=== PATIENT | male | born 1960 | race Caucasian/White ===

== ENCOUNTER 2021-07-19 13:31 | Inpatient (IN) | payer BC ==
[2021-07-19] MEDS ORDERED: Ondansetron 4 MG/2 ML SDV IVPUSH ONE (14:10)
[2021-07-19] MEDS ORDERED: Sodium Chloride 0.9% 10 ML Syringe FLUSH PRN (14:10)
[2021-07-19] MEDS ORDERED: Sodium Chloride 0.9% 1,000 ML IV SCH (14:15)
--- NOTE | 2021-07-19 14:54 | CR ---
Chest: Frontal view of the chest was obtained. Comparison: No prior chest x-ray is available. Heart size and mediastinum are within normal limits. Sternotomy is noted. Central lung markings are increased. Difficult to exclude pulmonary vascular congestion. Lungs otherwise are clear. Bony structures show nothing acute. Impression: 1. Prior sternotomy. 2. Mild increased central lung markings. Uncertain, without old chest x-ray, if this is acute representing pulmonary vascular congestion or chronic. Diagnostic code #3
[2021-07-19] MEDS ORDERED: EPINEPHrine 1 MG/ML SDV IM PRN (16:11)
[2021-07-19] MEDS ORDERED: diphenhydrAMINE 50 MG/ML SDV IVPUSH PRN (16:11)
[2021-07-19] MEDS ORDERED: methylPREDNISolone Sodium Succinate 125 MG/2 ML SDV IVPUSH PRN (16:11)
[2021-07-19] MEDS ORDERED: Famotidine 20 MG/2 ML SDV IVPUSH PRN (16:11)
[2021-07-19] MEDS ORDERED: Sodium Chloride 0.9% 10 ML Syringe FLUSH SCH (16:15)
[2021-07-19] MEDS ORDERED: Dexamethasone 4 MG/ML SDV IVPUSH ONE (16:51)
[2021-07-19] MEDS ORDERED: REMDESIVIR 200 MG in Sodium Chloride 0.9% 250 ML IV ONE (16:54)
--- NOTE | 2021-07-19 17:08 | EDM.PDOC ---
ED HPI GENERAL MEDICAL PROBLEM - General Chief Complaint: Respiratory Problem Stated Complaint: COVID +/SENT FROM [facility] Time Seen by Provider: 07/19/21 13:46 Source of Information: Reports: Patient, Provider History Limitations: Reports: No Limitations - History of Present Illness INITIAL COMMENTS - FREE TEXT/NARRATIVE: The patient presents from [facility] for possible COVID 19. The patient's had COVID 19 over a week ago. He started having symptoms 10 days ago with cough, shortness of breath, generalized weakness, fever, chills, nausea, vomiting and some diarrhea. He has a history of [place] CABG and COPD. He is on oxygen at home if needed at night. His provider offered him Regeneron twice and he refused. He is feeling worse so he came to see her and she sent him here. He quit smoking years ago. Onset: Gradual Duration: Day(s): (10) Severity: Moderate Improves with: Reports: None Worsens with: Reports: None Associated Symptoms: Reports: Cough, Fever/Chills, Nausea/Vomiting, Shortness of Breath. Denies: Chest Pain, Headaches Throat Pain Score (Numeric/FACES): 10 Generalized Pain Score (Numeric/FACES): 7 - Related Data Allergies Allergy/AdvReac Type Severity Reaction Status Date / Time Penicillins Allergy Unknown Cannot Verified 07/19/21 16:39 Remember Home Meds: Home Meds Escitalopram [Lexapro] 10 mg PO DAILY 07/19/21 [History] Loratadine 10 mg PO DAILY PRN 07/19/21 [History] Pantoprazole [ProTONIX] 40 mg PO DAILY 07/19/21 [History] Potassium Chloride 10 meq PO DAILY 07/19/21 [History] Ubidecarenone [Co Q-10] 1 tab PO DAILY 07/19/21 [History] hydrOXYzine HCL [Atarax] 25 mg PO BEDTIME PRN 07/19/21 [History] lisinopriL [Lisinopril] 10 mg PO DAILY 07/19/21 [History] Past Medical History HEENT History: Reports: Impaired Vision Cardiovascular History: Reports: Bypass Other Cardiovascular History: triple bypass Respiratory History: Reports: COPD, Pneumonia, Recurrent Other Respiratory History: wears oxygen at [facility] Musculoskeletal History: Reports: Other (See Below) Other Musculoskeletal History: left knee surgery x 3 and left ankle fracture Neurological History: Reports: CVA Psychiatric History: Reports: Depression - Infectious Disease History Infectious Disease History: Reports: Chicken Pox, Measles, Mumps, Novel Coronavirus - Past Surgical History GI Surgical History: Reports: Appendectomy, Cholecystectomy Social & Family History - Tobacco Use Tobacco Use Status *Q: Former Tobacco User Used Tobacco, but Quit: Yes Month/Year Tobacco Last Used: 10 - Caffeine Use Caffeine Use: Reports: Coffee, Soda - Recreational Drug Use Recreational Drug Use: No ED ROS GENERAL - Review of Systems Review Of Systems: See Below Constitutional: Reports: Fever, Chills, Malaise, Weakness, Fatigue HEENT: Reports: No Symptoms Respiratory: Reports: Shortness of Breath, Cough Cardiovascular: Reports: No Symptoms Endocrine: Reports: Fatigue GI/Abdominal: Reports: No Symptoms : Reports: No Symptoms Musculoskeletal: Reports: No Symptoms ED EXAM, GENERAL - Physical Exam Exam: See Below Exam Limited By: No Limitations General Appearance: Alert, No Apparent Distress Ears: Normal External Exam Nose: Normal Inspection Throat/Mouth: Normal Inspection Head: Atraumatic, Normocephalic Neck: Normal Inspection Respiratory/Chest: No Respiratory Distress, Lungs Clear, Normal Breath Sounds Cardiovascular: Regular Rate, Rhythm, No Edema, No Murmur GI/Abdominal: Soft, Non-Tender, No Organomegaly, No Mass Extremities: Normal Inspection Course - Vital Signs Last Recorded V/S: Last Vital Signs Temp 98.3 F 07/19/21 13:50 Pulse 74 07/19/21 13:50 Resp 20 07/19/21 13:50 BP 137/77 07/19/21 13:50 Pulse Ox 94 L 07/19/21 14:20 - Orders/Labs/Meds Orders: Active Orders 24 hr Category Date Time Status Cardiac Monitoring [RC] . DIRECTED Care 07/19/21 14:10 Active Oxygen Therapy [RC] PRN Care 07/19/21 14:10 Active Peripheral IV Care [RC] . DIRECTED Care 07/19/21 14:10 Active Vital Signs [RC] Q15M Care 07/19/21 16:11 Active HEPATIC FUNCTION PANEL,HFP [CHEM] DAILY Lab 07/20/21 17:00 Ordered HEPATIC FUNCTION PANEL,HFP [CHEM] DAILY Lab 07/21/21 17:00 Ordered HEPATIC FUNCTION PANEL,HFP [CHEM] DAILY Lab 07/22/21 17:00 Ordered HEPATIC FUNCTION PANEL,HFP [CHEM] DAILY Lab 07/23/21 17:00 Ordered Sodium Chloride 0.9% [Normal Saline] 1,000 ml Med 07/19/21 14:15 Active IV .BOLUS Sodium Chloride 0.9% [Saline Flush] Med 07/19/21 14:10 Active 10 ml FLUSH ASDIRECTED PRN Sodium Chloride 0.9% [Saline Flush] Med 07/19/21 16:15 Active 30 ml FLUSH ASDIRECTED ED Antiemetic Medication Reflex [OM.PC] Stat Ot 07/19/21 14:10 Ordered Peripheral IV Insertion Adult [OM.PC] Stat Ot 07/19/21 14:10 Ordered Medication Orders Sodium Chloride (Normal Saline) 1,000 mls @ 1,000 mls/hr IV .BOLUS PAULINO Last Admin: 07/19/21 14:44 Dose: 1,000 mls/hr Documented by: MATLBIL Sodium Chloride (Sodium Chloride 0.9% 10 Ml Syringe) 10 ml FLUSH ASDIRECTED PRN PRN Reason: Keep Vein Open Last Admin: 07/19/21 14:53 Dose: 10 ml Documented by: MATLBIL Sodium Chloride (Sodium Chloride 0.9% 10 Ml Syringe) 30 ml FLUSH ASDIRECTED PAULINO Labs: Laboratory Tests 07/19/21 07/19/21 07/19/21 Range/Units 14:38 14:38 14:38 WBC 5.20 (4.23-9.07) K/mm3 RBC 4.28 L (4.63-6.08) M/mm3 Hgb 14.7 (13.7-17.5) gm/dl Hct 44.0 (40.1-51.0) % MCV 102.8 H (79.0-92.2) fl MCH 34.3 H (25.7-32.2) pg MCHC 33.4 (32.2-35.5) g/dl RDW Std Deviation 53.3 H (35.1-43.9) fL Plt Count 158 L (163-337) K/mm3 MPV 11.4 (9.4-12.3) fl Neut % (Auto) 80.0 H (34.0-67.9) % Lymph % (Auto) 10.8 L (21.8-53.1) % Bland % (Auto) 6.7 (5.3-12.2) % Eos % (Auto) 2.1 (0.8-7.0) Baso % (Auto) 0.2 (0.1-1.2) % Neut # (Auto) 4.16 (1.78-5.38) K/mm3 Lymph # (Auto) 0.56 L (1.32-3.57) K/mm3 Bland # (Auto) 0.35 (0.30-0.82) K/mm3 Eos # (Auto) 0.11 (0.04-0.54) K/mm3 Baso # (Auto) 0.01 (0.01-0.08) K/mm3 PT (9.7-12.0) SECONDS INR APTT (21.7-31.4) SECONDS D-Dimer, Quantitative (0.19-0.50) mg/L Sodium 142 (136-145) mEq/L Potassium 4.2 (3.5-5.1) mEq/L Chloride 106 (98-107) mEq/L Carbon Dioxide 27 (21-32) mEq/L Anion Gap 13.2 (5-15) BUN 25 H (7-18) mg/dL Creatinine 1.0 (0.7-1.3) mg/dL Est Cr Clr Drug Dosing 84.07 mL/min Estimated GFR (MDRD) > 60 (>60) mL/min BUN/Creatinine Ratio 25.0 H (14-18) Glucose 111 H (70-99) mg/dL Lactic Acid 1.7 (0.4-2.0) mmol/L Calcium 8.2 L (8.5-10.1) mg/dL Total Bilirubin 1.2 H (0.2-1.0) mg/dL AST 94 H (15-37) U/L ALT 46 (16-63) U/L Alkaline Phosphatase 234 H (46-116) U/L C-Reactive Protein 15.5 H* (<1.0) mg/dL Total Protein 6.2 L (6.4-8.2) g/dl Albumin 2.6 L (3.4-5.0) g/dl Globulin 3.6 gm/dL Albumin/Globulin Ratio 0.7 L (1-2) 07/19/21 Range/Units 15:04 WBC (4.23-9.07) K/mm3 RBC (4.63-6.08) M/mm3 Hgb (13.7-17.5) gm/dl Hct (40.1-51.0) % MCV (79.0-92.2) fl MCH (25.7-32.2) pg MCHC (32.2-35.5) g/dl RDW Std Deviation (35.1-43.9) fL Plt Count (163-337) K/mm3 MPV (9.4-12.3) fl Neut % (Auto) (34.0-67.9) % Lymph % (Auto) (21.8-53.1) % Bland % (Auto) (5.3-12.2) % Eos % (Auto) (0.8-7.0) Baso % (Auto) (0.1-1.2) % Neut # (Auto) (1.78-5.38) K/mm3 Lymph # (Auto) (1.32-3.57) K/mm3 Bland # (Auto) (0.30-0.82) K/mm3 Eos # (Auto) (0.04-0.54) K/mm3 Baso # (Auto) (0.01-0.08) K/mm3 PT 11.4 (9.7-12.0) SECONDS INR 1.03 APTT 39.8 H (21.7-31.4) SECONDS D-Dimer, Quantitative 1.03 H (0.19-0.50) mg/L Sodium (136-145) mEq/L Potassium (3.5-5.1) mEq/L Chloride (98-107) mEq/L Carbon Dioxide (21-32) mEq/L Anion Gap (5-15) BUN (7-18) mg/dL Creatinine (0.7-1.3) mg/dL Est Cr Clr Drug Dosing mL/min Estimated GFR (MDRD) (>60) mL/min BUN/Creatinine Ratio (14-18) Glucose (70-99) mg/dL Lactic Acid (0.4-2.0) mmol/L Calcium (8.5-10.1) mg/dL Total Bilirubin (0.2-1.0) mg/dL AST (15-37) U/L ALT (16-63) U/L Alkaline Phosphatase (46-116) U/L C-Reactive Protein (<1.0) mg/dL Total Protein (6.4-8.2) g/dl Albumin (3.4-5.0) g/dl Globulin gm/dL Albumin/Globulin Ratio (1-2) Meds: Medications Generic Name Dose Route Start Last Admin Trade Name Freq PRN Reason Stop Dose Admin Sodium Chloride 1,000 mls @ 1,000 mls/hr 07/19/21 14:15 07/19/21 14:44 Normal Saline IV 1,000 mls/hr .BOLUS PAULINO Administration Sodium Chloride 10 ml 07/19/21 14:10 07/19/21 14:53 Sodium Chloride 0.9% 10 Ml Syringe FLUSH 10 ml ASDIRECTED PRN Administration Keep Vein Open Sodium Chloride 30 ml 07/19/21 16:15 Sodium Chloride 0.9% 10 Ml Syringe FLUSH ASDIRECTED PAULINO Discontinued Medications Generic Name Dose Route Start Last Admin Trade Name Freq PRN Reason Stop Dose Admin Dexamethasone 6 mg 07/19/21 16:51 Dexamethasone 4 Mg/Ml Sdv IVPUSH 07/19/21 16:52 ONETIME ONE Diphenhydramine HCl 50 mg 07/19/21 16:11 Diphenhydramine 50 Mg/Ml Sdv IVPUSH ONETIME PRN hypersensitivity reaction Epinephrine HCl 0.3 mg 07/19/21 16:11 Epinephrine 1 Mg/Ml Sdv IM ONETIME PRN hypersensitivity reaction Famotidine 20 mg 07/19/21 16:11 Famotidine 20 Mg/2 Ml Sdv IVPUSH ONETIME PRN hypersensitivity reaction CASIRIVIMAB/IMDEVIMAB 10 ml/ 110 mls @ 220 mls/hr 07/19/21 16:11 Sodium Chloride IV 07/19/21 16:40 ONETIME ONE Remdesivir 200 mg/ Sodium 250 mls @ 250 mls/hr 07/19/21 16:54 Chloride IV 07/19/21 16:55 ONETIME ONE Methylprednisolone Sodium Succinate 125 mg 07/19/21 16:11 Methylprednisolone Sodium Succinate 125 Mg/2 Ml Sdv IVPUSH ONETIME PRN hypersensitivity reaction Ondansetron HCl 4 mg 07/19/21 14:10 07/19/21 14:44 Ondansetron 4 Mg/2 Ml Sdv IVPUSH 07/19/21 14:11 4 mg ONETIME ONE Administration - Re-Assessments/Exams Free Text/Narrative Re-Assessment/Exam: 07/19/21 17:12 I ordered oxygen, IV NS 1L bolus, zofran 4mg IV, labs, and duoneb. His CXR shows prior sternotomy. Mild increased central lung markings. Uncertain, without old chest x-ray if this acute representing pulmonary vascular congestion or chronic. His CBC looks good. His D-dimer is elevated at 1.03. His lactic acid is normal at 1.7. His alk phos is elevated at 234. His CRP is elevated at 15.5. I did order regeneron but I did not realize he has been needing 4L by [place] to keep his sats above 90%. When I saw him over 2 hours ago he was 92% on room air. I canceled the regeneron and put him on dexamethasone 6mg IV, and remdesivir 200mg IV. I feel he needs to be admitted. I called Dr Raman and he agreed to the admission. Departure - Departure Time of Disposition: 17:20 Disposition: Admitted As Inpatient 65 Condition: Fair Clinical Impression: COVID, Hypoxia - Discharge Information Referrals: Kianna Macario MD [Primary Care Provider] - Forms: ED Department Discharge Sepsis Event Note (ED) - Focused Exam Vital Signs: Vital Signs Temp Pulse Resp BP Pulse Ox Pulse Ox 07/19/21 14:20 94 L 07/19/21 13:50 98.3 F 74 20 137/77 90 L - My Orders Last 24 Hours: My Active Orders 07/19/21 14:10 Cardiac Monitoring [RC] . DIRECTED Oxygen Therapy [RC] PRN Peripheral IV Care [RC] . DIRECTED Sodium Chloride 0.9% [Saline Flush] 10 ml FLUSH ASDIRECTED PRN ED Antiemetic Medication Reflex [OM.PC] Stat Peripheral IV Insertion Adult [OM.PC] Stat 07/19/21 14:15 Sodium Chloride 0.9% [Normal Saline] 1,000 ml IV .BOLUS 07/19/21 16:11 Vital Signs [RC] Q15M 07/19/21 16:15 Sodium Chloride 0.9% [Saline Flush] 30 ml FLUSH ASDIRECTED 07/20/21 17:00 HEPATIC FUNCTION PANEL,HFP [CHEM] DAILY 07/21/21 17:00 HEPATIC FUNCTION PANEL,HFP [CHEM] DAILY 07/22/21 17:00 HEPATIC FUNCTION PANEL,HFP [CHEM] DAILY 07/23/21 17:00 HEPATIC FUNCTION PANEL,HFP [CHEM] DAILY - Assessment/Plan Last 24 Hours: My Active Orders 07/19/21 14:10 Cardiac Monitoring [RC] . DIRECTED Oxygen Therapy [RC] PRN Peripheral IV Care [RC] . DIRECTED Sodium Chloride 0.9% [Saline Flush] 10 ml FLUSH ASDIRECTED PRN ED Antiemetic Medication Reflex [OM.PC] Stat Peripheral IV Insertion Adult [OM.PC] Stat 07/19/21 14:15 Sodium Chloride 0.9% [Normal Saline] 1,000 ml IV .BOLUS 07/19/21 16:11 Vital Signs [RC] Q15M 07/19/21 16:15 Sodium Chloride 0.9% [Saline Flush] 30 ml FLUSH ASDIRECTED 07/20/21 17:00 HEPATIC FUNCTION PANEL,HFP [CHEM] DAILY 07/21/21 17:00 HEPATIC FUNCTION PANEL,HFP [CHEM] DAILY 07/22/21 17:00 HEPATIC FUNCTION PANEL,HFP [CHEM] DAILY 07/23/21 17:00 HEPATIC FUNCTION PANEL,HFP [CHEM] DAILY
[2021-07-19] MEDS ORDERED: hydrOXYzine HCl 25 MG Tab PO PRN (17:26)
[2021-07-19] MEDS ORDERED: Acetaminophen 325 MG Tab PO PRN (17:28)
[2021-07-19] MEDS ORDERED: oxyCODONE 5 MG Tab PO PRN (17:28)
[2021-07-19] MEDS ORDERED: Ondansetron 4 MG Tab.DIS PO PRN (17:28)
[2021-07-19] MEDS ORDERED: Temazepam 15 MG Cap PO PRN (17:28)
[2021-07-19] MEDS ORDERED: Docusate Sodium 100 MG Cap PO PRN (17:28)
[2021-07-19] MEDS ORDERED: Morphine 2 MG/ML SYRINGE IVPUSH PRN (17:28)
--- NOTE | 2021-07-19 17:30 | PCM.HP.2 ---
H&P History of Present Illness - General Date of Service: 07/19/21 Admit Problem/Dx: Admission Diagnosis/Problem Admission Diagnosis/Problem Pneumonia Source of Information: Patient History Limitations: Reports: No Limitations - History of Present Illness Initial Comments - Free Text/Narative: The patient is a 61-year-old gentleman who was sent to the emergency department from [facility] for positive COVID-19. The patient had been exposed to sick contact over a week ago who had COVID-19. The patient started having symptoms approximately 10 days ago consisting of cough, shortness of breath weakness fever with some nausea vomiting and diarrhea. The patient says that some of the symptoms have resolved but he is still been having weakness and chills and some diarrhea. Patient does have a history of COPD and myocardial infarction with bypass surgery. The patient had been offered Regeneron but had refused. The patient says that he quit smoking years ago. He has had no specific aggravating or relieving factors. The patient has been taking medication for hypertension and GERD as well as [id number] allergy medications. 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 Onset of Symptoms: Reports: Gradual Duration of Symptoms: Reports: Day(s):, Getting Worse Quality: Reports: Ache Severity: Mild Improves with: Reports: Rest Worsens with: Reports: Breathing, Movement Context: Reports: Sick Contact Associated Symptoms: Reports: cough w sputum, Fever/Chills, Headaches, Malaise, Nausea/Vomiting Throat Pain Score (Numeric/FACES): 10 Generalized Pain Score (Numeric/FACES): 7 - Related Data Allergies/Adverse Reactions: Allergies Allergy/AdvReac Type Severity Reaction Status Date / Time Penicillins Allergy Unknown Cannot Verified 07/19/21 16:39 Remember Home Medications: Home Meds Escitalopram [Lexapro] 10 mg PO DAILY 07/19/21 [History] Loratadine 10 mg PO DAILY PRN 07/19/21 [History] Pantoprazole [ProTONIX] 40 mg PO DAILY 07/19/21 [History] Potassium Chloride 10 meq PO DAILY 07/19/21 [History] Ubidecarenone [Co Q-10] 1 tab PO DAILY 07/19/21 [History] hydrOXYzine HCL [Atarax] 25 mg PO BEDTIME PRN 07/19/21 [History] lisinopriL [Lisinopril] 10 mg PO DAILY 07/19/21 [History] Past Medical History HEENT History: Reports: Impaired Vision Cardiovascular History: Reports: Bypass Other Cardiovascular History: triple bypass Respiratory History: Reports: COPD, Pneumonia, Recurrent Other Respiratory History: wears oxygen at noc Gastrointestinal History: Reports: GERD Genitourinary History: Reports: None Musculoskeletal History: Reports: Other (See Below) Other Musculoskeletal History: left knee surgery x 3 and left ankle fracture Neurological History: Reports: CVA Psychiatric History: Reports: Depression Endocrine/Metabolic History: Reports: None Hematologic History: Reports: None Immunologic History: Reports: None - Infectious Disease History Infectious Disease History: Reports: Chicken Pox, Measles, Mumps, Novel Coronavirus - Past Surgical History GI Surgical History: Reports: Appendectomy, Cholecystectomy Social & Family History - Tobacco Use Tobacco Use Status *Q: Former Tobacco User Used Tobacco, but Quit: Yes Month/Year Tobacco Last Used: 10 - Caffeine Use Caffeine Use: Reports: Coffee, Soda - Recreational Drug Use Recreational Drug Use: No - Living Situation & Occupation Living situation: Reports: , with Spouse Occupation: Other (Self-employed) H&P Review of Systems - Review of Systems: Review Of Systems: See Below General: Reports: Fever, Chills, Weakness HEENT: Reports: Headaches, Rhinitis, Sore Throat Pulmonary: Reports: Shortness of Breath, Wheezing, Cough Cardiovascular: Reports: No Symptoms Gastrointestinal: Reports: Diarrhea, Decreased Appetite, Nausea, Vomiting Genitourinary: Reports: No Symptoms Musculoskeletal: Reports: No Symptoms Skin: Reports: No Symptoms Psychiatric: Reports: No Symptoms Neurological: Reports: No Symptoms Hematologic/Lymphatic: Reports: No Symptoms Immunologic: Reports: No Symptoms Exam - Exam Exam: See Below - Vital Signs Vital Signs: Last Vital Signs Temp 36.8 C 07/19/21 13:50 Pulse 74 07/19/21 13:50 Resp 20 07/19/21 13:50 BP 137/77 07/19/21 13:50 Pulse Ox 94 L 07/19/21 14:20 Weight: 83.915 kg - Exam Quality Assessment: Supplemental Oxygen, DVT Prophylaxis General: Alert, Oriented, Cooperative HEENT: Conjunctiva Clear, EACs Clear, EOMI, Hearing Intact, PERRLA. No: Mucosa Moist & [place] (Dry, edentulous) Neck: Supple, Trachea Midline Lungs: Decreased Breath Sounds, Rales (Bibasilar) Cardiovascular: Regular Rate, Regular Rhythm GI/Abdominal Exam: Normal Bowel Sounds, Soft, Non-Tender, No Distention (Male) Exam: Deferred Rectal (Males) Exam: Deferred Back Exam: Normal Inspection, Full Range of Motion Extremities: Normal Inspection, No Pedal Edema Skin: Warm, Dry, Intact Neurological: Cranial Nerves Intact, Normal Gait, Normal Speech, Normal Tone Neuro Extensive - Mental Status: Alert, Oriented x3 Psychiatric: Alert, Normal Affect, Normal Mood - Patient Data Lab Results Last 24 hrs: Laboratory Results - last 24 hr 07/19/21 07/19/21 07/19/21 Range/Units 14:38 14:38 14:38 WBC 5.20 (4.23-9.07) K/mm3 RBC 4.28 L (4.63-6.08) M/mm3 Hgb 14.7 (13.7-17.5) gm/dl Hct 44.0 (40.1-51.0) % MCV 102.8 H (79.0-92.2) fl MCH 34.3 H (25.7-32.2) pg MCHC 33.4 (32.2-35.5) g/dl RDW Std Deviation 53.3 H (35.1-43.9) fL Plt Count 158 L (163-337) K/mm3 MPV 11.4 (9.4-12.3) fl Neut % (Auto) 80.0 H (34.0-67.9) % Lymph % (Auto) 10.8 L (21.8-53.1) % [place] % (Auto) 6.7 (5.3-12.2) % Eos % (Auto) 2.1 (0.8-7.0) Baso % (Auto) 0.2 (0.1-1.2) % Neut # (Auto) 4.16 (1.78-5.38) K/mm3 Lymph # (Auto) 0.56 L (1.32-3.57) K/mm3 [place] # (Auto) 0.35 (0.30-0.82) K/mm3 Eos # (Auto) 0.11 (0.04-0.54) K/mm3 Baso # (Auto) 0.01 (0.01-0.08) K/mm3 PT (9.7-12.0) SECONDS INR APTT (21.7-31.4) SECONDS D-Dimer, Quantitative (0.19-0.50) mg/L Sodium 142 (136-145) mEq/L Potassium 4.2 (3.5-5.1) mEq/L Chloride 106 (98-107) mEq/L Carbon Dioxide 27 (21-32) mEq/L Anion Gap 13.2 (5-15) BUN 25 H (7-18) mg/dL Creatinine 1.0 (0.7-1.3) mg/dL Est Cr Clr Drug Dosing 84.07 mL/min Estimated GFR (MDRD) > 60 (>60) mL/min BUN/Creatinine Ratio 25.0 H (14-18) Glucose 111 H (70-99) mg/dL Lactic Acid 1.7 (0.4-2.0) mmol/L Calcium 8.2 L (8.5-10.1) mg/dL Total Bilirubin 1.2 H (0.2-1.0) mg/dL AST 94 H (15-37) U/L ALT 46 (16-63) U/L Alkaline Phosphatase 234 H (46-116) U/L C-Reactive Protein 15.5 H* (<1.0) mg/dL Total Protein 6.2 L (6.4-8.2) g/dl Albumin 2.6 L (3.4-5.0) g/dl Globulin 3.6 gm/dL Albumin/Globulin Ratio 0.7 L (1-2) 07/19/21 Range/Units 15:04 WBC (4.23-9.07) K/mm3 RBC (4.63-6.08) M/mm3 Hgb (13.7-17.5) gm/dl Hct (40.1-51.0) % MCV (79.0-92.2) fl MCH (25.7-32.2) pg MCHC (32.2-35.5) g/dl RDW Std Deviation (35.1-43.9) fL Plt Count (163-337) K/mm3 MPV (9.4-12.3) fl Neut % (Auto) (34.0-67.9) % Lymph % (Auto) (21.8-53.1) % [place] % (Auto) (5.3-12.2) % Eos % (Auto) (0.8-7.0) Baso % (Auto) (0.1-1.2) % Neut # (Auto) (1.78-5.38) K/mm3 Lymph # (Auto) (1.32-3.57) K/mm3 [place] # (Auto) (0.30-0.82) K/mm3 Eos # (Auto) (0.04-0.54) K/mm3 Baso # (Auto) (0.01-0.08) K/mm3 PT 11.4 (9.7-12.0) SECONDS INR 1.03 APTT 39.8 H (21.7-31.4) SECONDS D-Dimer, Quantitative 1.03 H (0.19-0.50) mg/L Sodium (136-145) mEq/L Potassium (3.5-5.1) mEq/L Chloride (98-107) mEq/L Carbon Dioxide (21-32) mEq/L Anion Gap (5-15) BUN (7-18) mg/dL Creatinine (0.7-1.3) mg/dL Est Cr Clr Drug Dosing mL/min Estimated GFR (MDRD) (>60) mL/min BUN/Creatinine Ratio (14-18) Glucose (70-99) mg/dL Lactic Acid (0.4-2.0) mmol/L Calcium (8.5-10.1) mg/dL Total Bilirubin (0.2-1.0) mg/dL AST (15-37) U/L ALT (16-63) U/L Alkaline Phosphatase (46-116) U/L C-Reactive Protein (<1.0) mg/dL Total Protein (6.4-8.2) g/dl Albumin (3.4-5.0) g/dl Globulin gm/dL Albumin/Globulin Ratio (1-2) Result Diagrams: 07/19/21 14:38 07/19/21 14:38 Sepsis Event Note - Focused Exam Vital Signs: Vital Signs Temp Pulse Resp BP Pulse Ox Pulse Ox 07/19/21 14:20 94 L 07/19/21 13:50 36.8 C 74 20 137/77 90 L - Problem List (1) Acute and chronic respiratory failure SNOMED Code(s): 79656463 ICD Code: J96.20 - ACUTE AND CHR RESP FAILURE, UNSP W HYPOXIA OR HYPERCAPNIA Status: Acute Priority: High Current Visit: Yes Qualifiers: Respiratory failure complication: hypoxia Qualified Code(s): J96.21 - Acute and chronic respiratory failure with hypoxia (2) Pneumonia due to 2019 novel coronavirus SNOMED Code(s): 357342013557312263 ICD Code: U07.1 - COVID-19; J12.82 - PNEUMONIA DUE TO CORONAVIRUS DISEASE 2019 Status: Acute Priority: High Current Visit: Yes (3) Hypertension SNOMED Code(s): 27137559 ICD Code: I10 - ESSENTIAL (PRIMARY) HYPERTENSION Status: Chronic Priorit y: Medium Current Visit: Yes Qualifiers: Hypertension type: primary hypertension Qualified Code(s): I10 - Essential (primary) hypertension (4) Coronary artery disease SNOMED Code(s): 11903280 ICD Code: I25.10 - ATHSCL HEART DISEASE OF [place] CORONARY ARTERY W/O ANG PCTRS Status: Chronic Priority: Medium Current Visit: Yes Qualifiers: Coronary Disease-Associated Artery/Lesion type: [place] artery [place] vs. transplanted heart: [place] heart Associated angina: without angina Qualified Code(s): I25.10 - Atherosclerotic heart disease of [place] coronary artery without angina pectoris (5) COPD (chronic obstructive pulmonary disease) SNOMED Code(s): 82124363 ICD Code: J44.9 - CHRONIC OBSTRUCTIVE PULMONARY DISEASE, UNSPECIFIED Status: Chronic Priority: Medium Current Visit: Yes Qualifiers: COPD type: emphysema Emphysema type: unspecified Qualified Code(s): J43.9 - Emphysema, unspecified Problem List Initiated/Reviewed/Updated: Yes Orders Last 24hrs: Active Orders 24 hr Category Date Time Status Patient Status [ADT] Routine ADT 07/19/21 17:28 Ordered Cardiac Monitoring [RC] . DIRECTED Care 07/19/21 14:10 Active Cardiac Monitoring [RC] CONTINUOUS Care 07/19/21 17:28 Ordered Oxygen Therapy [RC] PRN Care 07/19/21 14:10 Active Peripheral IV Care [RC] . DIRECTED Care 07/19/21 14:10 Active RT Aerosol Therapy [RC] ASDIRECTED Care 07/19/21 17:28 Ordered Up ad Amber [RC] ASDIRECTED Care 07/19/21 17:28 Ordered VTE/DVT Education [RC] PER UNIT ROUTINE Care 07/19/21 17:28 Ordered Vital Signs [RC] Q15M Care 07/19/21 16:11 Active Vital Signs [RC] Q4H Care 07/19/21 17:28 Ordered Regular Diet [DIET] Diet 07/19/21 Dinner Ordered C-REACTIVE PROTEIN [CHEM] AM Lab 07/20/21 05:11 Ordered CBC WITH AUTO DIFF [HEME] AM Lab 07/20/21 05:11 Ordered COMPREHENSIVE METABOLIC PN,CMP [CHEM] AM Lab 07/20/21 05:11 Ordered D-DIMER QUANTITATIVE [COAG] AM Lab 07/20/21 05:11 Ordered HEPATIC FUNCTION PANEL,HFP [CHEM] DAILY Lab 07/20/21 17:00 Ordered HEPATIC FUNCTION PANEL,HFP [CHEM] DAILY Lab 07/21/21 17:00 Ordered HEPATIC FUNCTION PANEL,HFP [CHEM] DAILY Lab 07/22/21 17:00 Ordered HEPATIC FUNCTION PANEL,HFP [CHEM] DAILY Lab 07/23/21 17:00 Ordered MAGNESIUM [CHEM] AM Lab 07/20/21 05:11 Ordered Acetaminophen [TylenoL] Med 07/19/21 17:28 Ordered 650 mg PO Q4H PRN Albuterol/Ipratropium [DuoNeb 3.0-0.5 MG/3 ML] Med 07/19/21 17:28 Ordered 3 ml NEB Q4H PRN Docusate Sodium [Colace] Med 07/19/21 17:28 Ordered 100 mg PO BID PRN Enoxaparin [Lovenox] Med 07/20/21 09:00 Ordered 40 mg SUBCUT DAILY Escitalopram Med 07/20/21 09:00 Ordered 10 mg PO DAILY Morphine Med 07/19/21 17:28 Ordered 2 mg IVPUSH Q2H PRN Ondansetron [Zofran ODT] Med 07/19/21 17:28 Ordered 4 mg PO Q4H PRN Pantoprazole [ProTONIX] Med 07/20/21 09:00 Ordered 40 mg PO DAILY Potassium Chloride [Klor-Con 10] Med 07/20/21 09:00 Ordered 10 meq PO DAILY Sodium Chloride 0.9% [Normal Saline] 1,000 ml Med 07/19/21 14:15 Active IV .BOLUS Sodium Chloride 0.9% [Saline Flush] Med 07/19/21 14:10 Active 10 ml FLUSH ASDIRECTED PRN Sodium Chloride 0.9% [Saline Flush] Med 07/19/21 16:15 Active 30 ml FLUSH ASDIRECTED Temazepam [Restoril] Med 07/19/21 17:28 Ordered 15 mg PO BEDTIME PRN hydrOXYzine HCL [Atarax] Med 07/19/21 17:26 Ordered 25 mg PO BEDTIME PRN lisinopriL [Prinivil] Med 07/20/21 09:00 Ordered 10 mg PO DAILY oxyCODONE Med 07/19/21 17:28 Ordered 5 mg PO Q4H PRN ED Antiemetic Medication Reflex [OM.PC] Stat Oth 07/19/21 14:10 Ordered Peripheral IV Insertion Adult [OM.PC] Stat Ot 07/19/21 14:10 Ordered Resuscitation Status Routine Resus Stat 07/19/21 17:28 Ordered Medication Orders Enoxaparin Sodium (Enoxaparin 40 Mg/0.4 Ml Syringe) 40 mg SUBCUT DAILY PAULINO Hydroxyzine HCl (Hydroxyzine Hcl 25 Mg Tab) 25 mg PO BEDTIME PRN PRN Reason: Itching Sodium Chloride (Normal Saline) 1,000 mls @ 1,000 mls/hr IV .BOLUS PAULINO Last Admin: 07/19/21 14:44 Dose: 1,000 mls/hr Documented by: EMMA Lisinopril (Lisinopril 10 Mg Tab) 10 mg PO DAILY PAULINO Non-Formulary Medication (Escitalopram) 10 mg PO DAILY PAULINO Pantoprazole Sodium (Pantoprazole 40 Mg Tab.Cr) 40 mg PO DAILY PAULINO Potassium Chloride (Potassium Chloride 10 Meq Tab.Er) 10 meq PO DAILY PAULINO Sodium Chloride (Sodium Chloride 0.9% 10 Ml Syringe) 10 ml FLUSH ASDIRECTED PRN PRN Reason: Keep Vein Open Last Admin: 07/19/21 14:53 Dose: 10 ml Documented by: EMMA Sodium Chloride (Sodium Chloride 0.9% 10 Ml Syringe) 30 ml FLUSH ASDIRECTED [facility] Assessment/Plan Comment:: The patient is a 61-year-old gentleman who had presented to his clinic initially and was transferred to the emergency department and was admitted to acute hospitalization. The patient was noted to be hypoxic and he does have a history of COPD. The patient will be started on remdesivir. The patient's remdesivir will be started tomorrow at 100 mg IV on a daily basis. The patient will also be placed on steroids dexamethasone at 6 mg p.o. daily. The patient will have a regular health healthy diet as tolerated. He will have DVT prophylaxis with the use of Lovenox 40 mg subcutaneous on a daily basis. The patient will have oxygen support to keep his oxygen saturations around 92%. The patient will also be kept on telemetry. He will have vital signs monitored and his antihype rtensive medications will be adjusted as necessary. I have elected to place the patient on the home dose of Celexa 20 mg p.o. daily. Repeat laboratory studies have been ordered for the morning. The patient has been encouraged to ambulate. The patient should be appropriate for discharge if significant improvement and he is finished 5 doses of the remdesivir. - Mortality Measure Prognosis:: Good
[2021-07-20] MEDS ORDERED: Albuterol 6.7 GM Inhaler INH PRN (07:46)
[2021-07-20] MEDS ORDERED: Ondansetron 4 MG/2 ML SDV IV PRN (07:50)
--- NOTE | 2021-07-20 07:52 | PCM.PN ---
- General Info Date of Service: 07/20/21 Admission Dx/Problem (Free Text): Admission Diagnosis/Problem Admission Diagnosis/Problem Pneumonia Functional Status: Reports: Pain Controlled, Tolerating Diet, Ambulating, Urinating, Incentive Spirometry, Other (Acapella ). Denies: New Symptoms - Review of Systems General: Reports: Weakness, Fatigue, Malaise. Denies: Fever, Chills HEENT: Reports: Headaches, Sore Throat Pulmonary: Reports: Shortness of Breath, Pleuritic Chest Pain, Cough, Wheezing. Denies: Sputum Cardiovascular: Reports: No Symptoms, Dyspnea on Exertion. Denies: Chest Pain, Palpitations, Edema Gastrointestinal: Reports: Decreased Appetite, Diarrhea. Denies: Abdominal Pain, Constipation, Nausea, Vomiting Genitourinary: Reports: No Symptoms. Denies: Pain Musculoskeletal: Reports: No Symptoms Skin: Reports: No Symptoms. Denies: Cyanosis Neurological: Reports: No Symptoms. Denies: Confusion, Dizziness, Headache, Numbness, Pre-Existing Deficit, Seizure, Syncope, Tingling, Difficulty Walking, Gait Disturbance Psychiatric: Reports: No Symptoms - Patient Data Vitals - Most Recent: Last Vital Signs Temp 97.7 F 07/20/21 06:29 Pulse 71 07/20/21 06:29 Resp 14 07/20/21 06:29 BP 92/75 07/20/21 06:29 Pulse Ox 92 L 07/20/21 06:14 Weight - Most Recent: 202 lb 3.2 oz I&O - Last 24 Hours: Intake & Output 07/19/21 07/20/21 07/20/21 22:59 06:59 14:59 Intake Total 600 Balance 600 Lab Results Last 24 Hours: Laboratory Results - last 24 hr 07/19/21 07/19/21 07/19/21 Range/Units 14:38 14:38 14:38 WBC 5.20 (4.23-9.07) K/mm3 RBC 4.28 L (4.63-6.08) M/mm3 Hgb 14.7 (13.7-17.5) gm/dl Hct 44.0 (40.1-51.0) % MCV 102.8 H (79.0-92.2) fl MCH 34.3 H (25.7-32.2) pg MCHC 33.4 (32.2-35.5) g/dl RDW Std Deviation 53.3 H (35.1-43.9) fL Plt Count 158 L (163-337) K/mm3 MPV 11.4 (9.4-12.3) fl Neut % (Auto) 80.0 H (34.0-67.9) % Lymph % (Auto) 10.8 L (21.8-53.1) % [place] % (Auto) 6.7 (5.3-12.2) % Eos % (Auto) 2.1 (0.8-7.0) Baso % (Auto) 0.2 (0.1-1.2) % Neut # (Auto) 4.16 (1.78-5.38) K/mm3 Lymph # (Auto) 0.56 L (1.32-3.57) K/mm3 [place] # (Auto) 0.35 (0.30-0.82) K/mm3 Eos # (Auto) 0.11 (0.04-0.54) K/mm3 Baso # (Auto) 0.01 (0.01-0.08) K/mm3 Manual Slide Review PT (9.7-12.0) SECONDS INR APTT (21.7-31.4) SECONDS D-Dimer, Quantitative (0.19-0.50) mg/L Sodium 142 (136-145) mEq/L Potassium 4.2 (3.5-5.1) mEq/L Chloride 106 (98-107) mEq/L Carbon Dioxide 27 (21-32) mEq/L Anion Gap 13.2 (5-15) BUN 25 H (7-18) mg/dL Creatinine 1.0 (0.7-1.3) mg/dL Est Cr Clr Drug Dosing 84.07 mL/min Estimated GFR (MDRD) > 60 (>60) mL/min BUN/Creatinine Ratio 25.0 H (14-18) Glucose 111 H (70-99) mg/dL Lactic Acid 1.7 (0.4-2.0) mmol/L Calcium 8.2 L (8.5-10.1) mg/dL Magnesium (1.8-2.4) mg/dL Total Bilirubin 1.2 H (0.2-1.0) mg/dL AST 94 H (15-37) U/L ALT 46 (16-63) U/L Alkaline Phosphatase 234 H (46-116) U/L C-Reactive Protein 15.5 H* (<1.0) mg/dL Total Protein 6.2 L (6.4-8.2) g/dl Albumin 2.6 L (3.4-5.0) g/dl Globulin 3.6 gm/dL Albumin/Globulin Ratio 0.7 L (1-2) 07/19/21 07/20/21 07/20/21 Range/Units 15:04 06:25 06:25 WBC 4.15 L (4.23-9.07) K/mm3 RBC 4.04 L (4.63-6.08) M/mm3 Hgb 13.6 L (13.7-17.5) gm/dl Hct 41.7 (40.1-51.0) % MCV 103.2 H (79.0-92.2) fl MCH 33.7 H (25.7-32.2) pg MCHC 32.6 (32.2-35.5) g/dl RDW Std Deviation 52.8 H (35.1-43.9) fL Plt Count 143 L (163-337) K/mm3 MPV 11.5 (9.4-12.3) fl Neut % (Auto) 84.6 H (34.0-67.9) % Lymph % (Auto) 10.6 L (21.8-53.1) % [place] % (Auto) 4.6 L (5.3-12.2) % Eos % (Auto) 0 L (0.8-7.0) Baso % (Auto) 0.2 (0.1-1.2) % Neut # (Auto) 3.51 (1.78-5.38) K/mm3 Lymph # (Auto) 0.44 L (1.32-3.57) K/mm3 [place] # (Auto) 0.19 L (0.30-0.82) K/mm3 Eos # (Auto) 0.00 L (0.04-0.54) K/mm3 Baso # (Auto) 0.01 (0.01-0.08) K/mm3 Manual Slide Review Abnormal smear PT 11.4 (9.7-12.0) SECONDS INR 1.03 APTT 39.8 H (21.7-31.4) SECONDS D-Dimer, Quantitative 1.03 H 1.07 H (0.19-0.50) mg/L Sodium (136-145) mEq/L Potassium (3.5-5.1) mEq/L Chloride (98-107) mEq/L Carbon Dioxide (21-32) mEq/L Anion Gap (5-15) BUN (7-18) mg/dL Creatinine (0.7-1.3) mg/dL Est Cr Clr Drug Dosing mL/min Estimated GFR (MDRD) (>60) mL/min BUN/Creatinine Ratio (14-18) Glucose (70-99) mg/dL Lactic Acid (0.4-2.0) mmol/L Calcium (8.5-10.1) mg/dL Magnesium (1.8-2.4) mg/dL Total Bilirubin (0.2-1.0) mg/dL AST (15-37) U/L ALT (16-63) U/L Alkaline Phosphatase (46-116) U/L C-Reactive Protein (<1.0) mg/dL Total Protein (6.4-8.2) g/dl Albumin (3.4-5.0) g/dl Globulin gm/dL Albumin/Globulin Ratio (1-2) 07/20/21 Range/Units 06:25 WBC (4.23-9.07) K/mm3 RBC (4.63-6.08) M/mm3 Hgb (13.7-17.5) gm/dl Hct (40.1-51.0) % MCV (79.0-92.2) fl MCH (25.7-32.2) pg MCHC (32.2-35.5) g/dl RDW Std Deviation (35.1-43.9) fL Plt Count (163-337) K/mm3 MPV (9.4-12.3) fl Neut % (Auto) (34.0-67.9) % Lymph % (Auto) (21.8-53.1) % [place] % (Auto) (5.3-12.2) % Eos % (Auto) (0.8-7.0) Baso % (Auto) (0.1-1.2) % Neut # (Auto) (1.78-5.38) K/mm3 Lymph # (Auto) (1.32-3.57) K/mm3 [place] # (Auto) (0.30-0.82) K/mm3 Eos # (Auto) (0.04-0.54) K/mm3 Baso # (Auto) (0.01-0.08) K/mm3 Manual Slide Review PT (9.7-12.0) SECONDS INR APTT (21.7-31.4) SECONDS D-Dimer, Quantitative (0.19-0.50) mg/L Sodium 141 (136-145) mEq/L Potassium 4.8 (3.5-5.1) mEq/L Chloride 108 H (98-107) mEq/L Carbon Dioxide 24 (21-32) mEq/L Anion Gap 13.8 (5-15) BUN 25 H (7-18) mg/dL Creatinine 0.9 (0.7-1.3) mg/dL Est Cr Clr Drug Dosing 107.25 mL/min Estimated GFR (MDRD) > 60 (>60) mL/min BUN/Creatinine Ratio 27.8 H (14-18) Glucose 166 H (70-99) mg/dL Lactic Acid (0.4-2.0) mmol/L Calcium 8.1 L (8.5-10.1) mg/dL Magnesium 2.0 (1.8-2.4) mg/dL Total Bilirubin 0.9 (0.2-1.0) mg/dL AST 76 H (15-37) U/L ALT 41 (16-63) U/L Alkaline Phosphatase 218 H (46-116) U/L C-Reactive Protein 13.6 H* (<1.0) mg/dL Total Protein 5.8 L (6.4-8.2) g/dl Albumin 2.3 L (3.4-5.0) g/dl Globulin 3.5 gm/dL Albumin/Globulin Ratio 0.7 L (1-2) Med Orders - Current: Current Medications Acetaminophen (Acetaminophen 325 Mg Tab) 650 mg PO Q4H PRN PRN Reason: Pain (Mild 1-3)/fever Albuterol (Albuterol 6.7 Gm Inhaler) 0 gm INH Q2H PRN PRN Reason: SOB/Wheezing Albuterol/Ipratropium (Albuterol/Ipratropium 3.0-0.5 Mg/3 Ml Neb Soln) 3 ml NEB Q4H PRN PRN Reason: Shortness Of Breath/wheezing Citalopram Hydrobromide (Citalopram 20 Mg Tab) 20 mg PO DAILY [facility] Dexamethasone (Dexamethasone 4 Mg Tab) 6 mg PO DAILY [facility] Stop: 07/28/21 09:01 Docusate Sodium (Docusate Sodium 100 Mg Cap) 100 mg PO BID PRN PRN Reason: Constipation Enoxaparin Sodium (Enoxaparin 40 Mg/0.4 Ml Syringe) 40 mg SUBCUT DAILY [facility] Hydroxyzine HCl (Hydroxyzine Hcl 25 Mg Tab) 25 mg PO BEDTIME PRN PRN Reason: Itching Sodium Chloride (Normal Saline) 1,000 mls @ 1,000 mls/hr IV .BOLUS [facility] Last Admin: 07/19/21 14:44 Dose: 1,000 mls/hr Documented by: Remdesivir 100 mg/ Sodium (Chloride) 100 mls @ 100 mls/hr IV Q24H [facility] Stop: 07/23/21 18:29 Lisinopril (Lisinopril 10 Mg Tab) 10 mg PO DAILY [facility] Non-Formulary Medication (Aspirin [Vazalore]) 81 mg PO BID [facility] Ondansetron HCl (Ondansetron 4 Mg Tab.Dis) 4 mg PO Q4H PRN PRN Reason: nausea, able to take PO Pantoprazole Sodium (Pantoprazole 40 Mg Tab.Cr) 40 mg PO DAILY [facility] Potassium Chloride (Potassium Chloride 10 Meq Tab.Er) 10 meq PO DAILY [facility] Sodium Chloride (Sodium Chloride 0.9% 10 Ml Syringe) 10 ml FLUSH ASDIRECTED PRN PRN Reason: Keep Vein Open Last Admin: 07/19/21 14:53 Dose: 10 ml Documented by: Sodium Chloride (Sodium Chloride 0.9% 10 Ml Syringe) 30 ml FLUSH ASDIRECTED PAULINO Temazepam (Temazepam 15 Mg Cap) 15 mg PO BEDTIME PRN PRN Reason: Sleep Discontinued Medications Dexamethasone (Dexamethasone 4 Mg/Ml Sdv) 6 mg IVPUSH ONETIME ONE Stop: 07/19/21 16:52 Last Admin: 07/19/21 17:39 Dose: 6 mg Documented by: Diphenhydramine HCl (Diphenhydramine 50 Mg/Ml Sdv) 50 mg IVPUSH ONETIME PRN PRN Reason: hypersensitivity reaction Epinephrine HCl (Epinephrine 1 Mg/Ml Sdv) 0.3 mg IM ONETIME PRN PRN Reason: hypersensitivity reaction Famotidine (Famotidine 20 Mg/2 Ml Sdv) 20 mg IVPUSH ONETIME PRN PRN Reason: hypersensitivity reaction CASIRIVIMAB/IMDEVIMAB 10 ml/ (Sodium Chloride) 110 mls @ 220 mls/hr IV ONETIME ONE Stop: 07/19/21 16:40 Last Admin: 07/19/21 17:34 Dose: Not Given Documented by: Remdesivir 200 mg/ Sodium (Chloride) 250 mls @ 250 mls/hr IV ONETIME ONE Stop: 07/19/21 16:55 Last Admin: 07/19/21 17:38 Dose: 250 mls/hr Documented by: Methylprednisolone Sodium Succinate (Methylprednisolone Sodium Succinate 125 Mg/2 Ml Sdv) 125 mg IVPUSH ONETIME PRN PRN Reason: hypersensitivity reaction Morphine Sulfate (Morphine 2 Mg/Ml Syringe) 2 mg IVPUSH Q2H PRN PRN Reason: Pain (severe 7-10) Stop: 07/20/21 17:28 Ondansetron HCl (Ondansetron 4 Mg/2 Ml Sdv) 4 mg IVPUSH ONETIME ONE Stop: 07/19/21 14:11 Last Admin: 07/19/21 14:44 Dose: 4 mg Documented by: Oxycodone HCl (Oxycodone 5 Mg Tab) 5 mg PO Q4H PRN PRN Reason: Pain (moderate 4-6) - Exam Quality Assessment: Supplemental Oxygen (1.5L), DVT Prophylaxis. No: Urine Catheter General: Alert, Oriented, Cooperative, No Acute Distress HEENT: Pupils Equal, Pupils Reactive, Mucous Membr. Moist/[place] Neck: Supple, Trachea Midline Lungs: Normal Respiratory Effort, Decreased Breath Sounds, Rhonchi, Wheezing Cardiovascular: Regular Rate, Regular Rhythm GI/Abdominal Exam: Normal Bowel Sounds, Soft, Non-Tender, No Distention, No Abnormal Bruit (Male) Exam: Deferred Back Exam: Normal Inspection, Full Range of Motion Extremities: Normal Inspection, Normal Range of Motion, Non-Tender, No Pedal Edema, Normal Capillary Refill Peripheral Pulses: 2+: Radial (L), Radial (R), Dorsalis Pedis (L), Dorsalis Pedis (R) Skin: Warm, Dry, Intact Neurological: No New Focal Deficit Psy/Mental Status: Alert, Normal Affect, Normal Mood - Patient Data Lab Results Last 24 hrs: Laboratory Results - last 24 hr 07/19/21 07/19/21 07/19/21 Range/Units 14:38 14:38 14:38 WBC 5.20 (4.23-9.07) K/mm3 RBC 4.28 L (4.63-6.08) M/mm3 Hgb 14.7 (13.7-17.5) gm/dl Hct 44.0 (40.1-51.0) % MCV 102.8 H (79.0-92.2) fl MCH 34.3 H (25.7-32.2) pg MCHC 33.4 (32.2-35.5) g/dl RDW Std Deviation 53.3 H (35.1-43.9) fL Plt Count 158 L (163-337) K/mm3 MPV 11.4 (9.4-12.3) fl Neut % (Auto) 80.0 H (34.0-67.9) % Lymph % (Auto) 10.8 L (21.8-53.1) % [place] % (Auto) 6.7 (5.3-12.2) % Eos % (Auto) 2.1 (0.8-7.0) Baso % (Auto) 0.2 (0.1-1.2) % Neut # (Auto) 4.16 (1.78-5.38) K/mm3 Lymph # (Auto) 0.56 L (1.32-3.57) K/mm3 [place] # (Auto) 0.35 (0.30-0.82) K/mm3 Eos # (Auto) 0.11 (0.04-0.54) K/mm3 Baso # (Auto) 0.01 (0.01-0.08) K/mm3 Manual Slide Review PT (9.7-12.0) SECONDS INR APTT (21.7-31.4) SECONDS D-Dimer, Quantitative (0.19-0.50) mg/L Sodium 142 (136-145) mEq/L Potassium 4.2 (3.5-5.1) mEq/L Chloride 106 (98-107) mEq/L Carbon Dioxide 27 (21-32) mEq/L Anion Gap 13.2 (5-15) BUN 25 H (7-18) mg/dL Creatinine 1.0 (0.7-1.3) mg/dL Est Cr Clr Drug Dosing 84.07 mL/min Estimated GFR (MDRD) > 60 (>60) mL/min BUN/Creatinine Ratio 25.0 H (14-18) Glucose 111 H (70-99) mg/dL Lactic Acid 1.7 (0.4-2.0) mmol/L Calcium 8.2 L (8.5-10.1) mg/dL Magnesium (1.8-2.4) mg/dL Total Bilirubin 1.2 H (0.2-1.0) mg/dL AST 94 H (15-37) U/L ALT 46 (16-63) U/L Alkaline Phosphatase 234 H (46-116) U/L C-Reactive Protein 15.5 H* (<1.0) mg/dL Total Protein 6.2 L (6.4-8.2) g/dl Albumin 2.6 L (3.4-5.0) g/dl Globulin 3.6 gm/dL Albumin/Globulin Ratio 0.7 L (1-2) 07/19/21 07/20/21 07/20/21 Range/Units 15:04 06:25 06:25 WBC 4.15 L (4.23-9.07) K/mm3 RBC 4.04 L (4.63-6.08) M/mm3 Hgb 13.6 L (13.7-17.5) gm/dl Hct 41.7 (40.1-51.0) % MCV 103.2 H (79.0-92.2) fl MCH 33.7 H (25.7-32.2) pg MCHC 32.6 (32.2-35.5) g/dl RDW Std Deviation 52.8 H (35.1-43.9) fL Plt Count 143 L (163-337) K/mm3 MPV 11.5 (9.4-12.3) fl Neut % (Auto) 84.6 H (34.0-67.9) % Lymph % (Auto) 10.6 L (21.8-53.1) % [place] % (Auto) 4.6 L (5.3-12.2) % Eos % (Auto) 0 L (0.8-7.0) Baso % (Auto) 0.2 (0.1-1.2) % Neut # (Auto) 3.51 (1.78-5.38) K/mm3 Lymph # (Auto) 0.44 L (1.32-3.57) K/mm3 [place] # (Auto) 0.19 L (0.30-0.82) K/mm3 Eos # (Auto) 0.00 L (0.04-0.54) K/mm3 Baso # (Auto) 0.01 (0.01-0.08) K/mm3 Manual Slide Review Abnormal smear PT 11.4 (9.7-12.0) SECONDS INR 1.03 APTT 39.8 H (21.7-31.4) SECONDS D-Dimer, Quantitative 1.03 H 1.07 H (0.19-0.50) mg/L Sodium (136-145) mEq/L Potassium (3.5-5.1) mEq/L Chloride (98-107) mEq/L Carbon Dioxide (21-32) mEq/L Anion Gap (5-15) BUN (7-18) mg/dL Creatinine (0.7-1.3) mg/dL Est Cr Clr Drug Dosing mL/min Estimated GFR (MDRD) (>60) mL/min BUN/Creatinine Ratio (14-18) Glucose (70-99) mg/dL Lactic Acid (0.4-2.0) mmol/L Calcium (8.5-10.1) mg/dL Magnesium (1.8-2.4) mg/dL Total Bilirubin (0.2-1.0) mg/dL AST (15-37) U/L ALT (16-63) U/L Alkaline Phosphatase (46-116) U/L C-Reactive Protein (<1.0) mg/dL Total Protein (6.4-8.2) g/dl Albumin (3.4-5.0) g/dl Globulin gm/dL Albumin/Globulin Ratio (1-2) 07/20/21 Range/Units 06:25 WBC (4.23-9.07) K/mm3 RBC (4.63-6.08) M/mm3 Hgb (13.7-17.5) gm/dl Hct (40.1-51.0) % MCV (79.0-92.2) fl MCH (25.7-32.2) pg MCHC (32.2-35.5) g/dl RDW Std Deviation (35.1-43.9) fL Plt Count (163-337) K/mm3 MPV (9.4-12.3) fl Neut % (Auto) (34.0-67.9) % Lymph % (Auto) (21.8-53.1) % [place] % (Auto) (5.3-12.2) % Eos % (Auto) (0.8-7.0) Baso % (Auto) (0.1-1.2) % Neut # (Auto) (1.78-5.38) K/mm3 Lymph # (Auto) (1.32-3.57) K/mm3 [place] # (Auto) (0.30-0.82) K/mm3 Eos # (Auto) (0.04-0.54) K/mm3 Baso # (Auto) (0.01-0.08) K/mm3 Manual Slide Review PT (9.7-12.0) SECONDS INR APTT (21.7-31.4) SECONDS D-Dimer, Quantitative (0.19-0.50) mg/L Sodium 141 (136-145) mEq/L Potassium 4.8 (3.5-5.1) mEq/L Chloride 108 H (98-107) mEq/L Carbon Dioxide 24 (21-32) mEq/L Anion Gap 13.8 (5-15) BUN 25 H (7-18) mg/dL Creatinine 0.9 (0.7-1.3) mg/dL Est Cr Clr Drug Dosing 107.25 mL/min Estimated GFR (MDRD) > 60 (>60) mL/min BUN/Creatinine Ratio 27.8 H (14-18) Glucose 166 H (70-99) mg/dL Lactic Acid (0.4-2.0) mmol/L Calcium 8.1 L (8.5-10.1) mg/dL Magnesium 2.0 (1.8-2.4) mg/dL Total Bilirubin 0.9 (0.2-1.0) mg/dL AST 76 H (15-37) U/L ALT 41 (16-63) U/L Alkaline Phosphatase 218 H (46-116) U/L C-Reactive Protein 13.6 H* (<1.0) mg/dL Total Protein 5.8 L (6.4-8.2) g/dl Albumin 2.3 L (3.4-5.0) g/dl Globulin 3.5 gm/dL Albumin/Globulin Ratio 0.7 L (1-2) Result Diagrams: 07/20/21 06:25 07/20/21 06:25 Sepsis Event Note - Evaluation Sepsis Screening Result: No Definite Risk - Focused Exam Vital Signs: Vital Signs Temp Temp Pulse Pulse Resp BP BP 07/20/21 06:29 97.7 F 71 14 92/75 07/20/21 06:14 07/20/21 01:02 98.1 F 76 18 127/75 07/20/21 00:00 98.1 F 76 18 127/75 07/19/21 21:57 98.6 F 75 16 128/86 07/19/21 21:45 Pulse Ox Pulse Ox 07/20/21 06:29 07/20/21 06:14 92 L 07/20/21 01:02 07/20/21 00:00 93 L 07/19/21 21:57 07/19/21 21:45 93 L - Problem List & Annotations (1) Acute and chronic respiratory failure SNOMED Code(s): 33434540 Code(s): J96.20 - ACUTE AND CHR RESP FAILURE, UNSP W HYPOXIA OR HYPERCAPNIA Status: Acute Priority: High Current Visit: Yes Qualifiers: Respiratory failure complication: hypoxia Qualified Code(s): J96.21 - Acute and chronic respiratory failure with hypoxia (2) COVID SNOMED Code(s): 188635345 Code(s): U07.1 - COVID-19 Status: Acute Priority: High Current Visit: Yes (3) Hypoxia SNOMED Code(s): 898081784 Code(s): R09.02 - HYPOXEMIA Status: Acute Priority: High Current Visit: Yes (4) Pneumonia due to 2019 novel coronavirus SNOMED Code(s): 415804809928484573 Code(s): U07.1 - COVID-19; J12.82 - PNEUMONIA DUE TO CORONAVIRUS DISEASE 2019 Status: Acute Priority: High Current Visit: Yes (5) COPD (chronic obstructive pulmonary disease) SNOMED Code(s): 71957801 Code(s): J44.9 - CHRONIC OBSTRUCTIVE PULMONARY DISEASE, UNSPECIFIED Status: Chronic Priority: Medium Current Visit: Yes Qualifiers: COPD type: emphysema Emphysema type: unspecified Qualified Code(s): J43.9 - Emphysema, unspecified (6) Coronary artery disease SNOMED Code(s): 62055749 Code(s): I25.10 - ATHSCL HEART DISEASE OF [place] CORONARY ARTERY W/O ANG PCTRS Status: Chronic Priority: Medium Current Visit: Yes Qualifiers: Coronary Disease-Associated Artery/Lesion type: [place] artery [place] vs. transplanted heart: [place] heart Associated angina: without angina Qualified Code(s): I25.10 - Atherosclerotic heart disease of [place] coronary artery without angina pectoris (7) Hypertension SNOMED Code(s): 12203298 Code(s): I10 - ESSENTIAL (PRIMARY) HYPERTENSION Status: Chronic Priority: Medium Current Visit: Yes Qualifiers: Hypertension type: primary hypertension Qualified Code(s): I10 - Essential (primary) hypertension - Problem List Review Problem List Initiated/Reviewed/Updated: Yes - My Orders Last 24 Hours: My Active Orders 07/20/21 07:46 Albuterol [Proventil HFA] See Dose Instructions INH Q2H PRN 07/20/21 07:47 RT Post Treatment Assessment [RC] Click to Edit RT Pre-Treatment Assessment [RC] Click to Edit 07/20/21 07:48 Consult to Respiratory Therapy [Respiratory Care Assess and Treatment] [CONS] Routine VITAMIN D,25-HYDROXY [CHEM] Routine 07/20/21 07:49 Nurse Communication: Isolation [RC] ASDIRECTED Positioning, Patient [RC] ASDIRECTED RT Incentive Spirometry [RC] ASDIRECTED PROCALCITONIN [REF] Routine Isolation [COMM] Stat RT Acapella [RESPCARE] Routine 07/20/21 07:50 Height and Weight [RC] DAILY Intake and Output [RC] DAILY Ondansetron [Zofran] 4 mg IV Q6H PRN 07/20/21 09:00 Aspirin [Vazalore] 81 mg PO BID 07/21/21 05:11 C-REACTIVE PROTEIN [CHEM] AM CBC WITH AUTO DIFF [HEME] AM COMPREHENSIVE METABOLIC PN,CMP [CHEM] AM MAGNESIUM [CHEM] AM 07/22/21 05:11 C-REACTIVE PROTEIN [CHEM] AM CBC WITH AUTO DIFF [HEME] AM COMPREHENSIVE METABOLIC PN,CMP [CHEM] AM D-DIMER QUANTITATIVE [COAG] Q48H MAGNESIUM [CHEM] AM 07/23/21 05:11 C-REACTIVE PROTEIN [CHEM] AM CBC WITH AUTO DIFF [HEME] AM COMPREHENSIVE METABOLIC PN,CMP [CHEM] AM MAGNESIUM [CHEM] AM 07/24/21 05:11 C-REACTIVE PROTEIN [CHEM] AM CBC WITH AUTO DIFF [HEME] AM COMPREHENSIVE METABOLIC PN,CMP [CHEM] AM D-DIMER QUANTITATIVE [COAG] Q48H MAGNESIUM [CHEM] AM 07/26/21 05:11 D-DIMER QUANTITATIVE [COAG] Q48H - Plan Plan:: 07/19/2021 The patient is a 61-year-old gentleman who had presented to his clinic initially and was transferred to the emergency department and was admitted to acute hospitalization. The patient was noted to be hypoxic and he does have a history of COPD. The patient will be started on remdesivir. The patient's remdesivir will be started tomorrow at 100 mg IV on a daily basis. The patient will also be placed on steroids dexamethasone at 6 mg p.o. daily. The patient will have a regular health healthy diet as tolerated. He will have DVT prophylaxis with the use of Lovenox 40 mg subcutaneous on a daily basis. The patient will have oxygen support to keep his oxygen saturations around 92%. The patient will also be kept on telemetry. He will have vital signs monitored and his antihypertensive medications will be adjusted as necessary. I have elected to place the patient on the home dose of Celexa 20 mg p.o. daily. Repeat laborat ory studies have been ordered for the morning. The patient has been encouraged to ambulate. The patient should be appropriate for discharge if significant improvement and he is finished 5 doses of the remdesivir. 07/20/2021 61-year-old male admitted to the floor for COVID-19 pneumonia treatment. He currently is on 2.5 L with saturations in the low 90s. Labs obtained today show WBC of 4.15. Hemoglobin 13.6. Platelet 143,000. Neutrophils are elevated at 84.6%. D-dimer is 1.07. Sodium 141. Potassium 4.8. Chloride 108. Carbon dioxide 24. Anion gap 13.8. BUN is 25. Creatinine 0.9. GFR greater than 60. Glucose is 166. Calcium 8.1. Magnesium 2.0. Total bilirubin is down to 0.9. AST 76. ALT 41, alkaline phosphatase is 218. CRP is down to 13.6. Albumin is down to 2.3. Home aspirin has been resumed and he was reporting a sore throat for which Cepacol lozenges have been ordered. He is on day 2 of dexamethasone and remdesivir. Procalcitonin vitamin D have been ordered and are pending. Otherwise he reports he feels "pretty good" but states he is still quite weak. He will remain hospitalized for COVID-19 pneumonia treatment. We did discuss proning and I- S/Acapella have been ordered. Oxygen goal has been decreased to 88 to 95%. He will remain hospitalized pending improvement in oxygen demand.
[2021-07-20] MEDS: Citalopram 20 MG Tab PO SCH (08:52)
[2021-07-20] MEDS: Aspirin 81 MG Tab.EC PO SCH ×2 (08:52→22:04)
[2021-07-20] MEDS: Dexamethasone 4 MG Tab PO SCH (08:52)
[2021-07-20] MEDS: Potassium Chloride 10 MEQ Tab.ER PO SCH (08:52)
[2021-07-20] MEDS: Pantoprazole 40 MG Tab.CR PO SCH (08:52)
[2021-07-20] MEDS: Lisinopril 10 MG Tab PO SCH (08:52)
[2021-07-20] MEDS: Enoxaparin 40 MG/0.4 ML Syringe SUBCUT SCH (08:53)
[2021-07-20] MEDS: Benzocaine/Cetylpyridinium/Menthol Lozenge MUCMEM PRN (11:43)
[2021-07-20] MEDS: REMDESIVIR 100 MG in Sodium Chloride 0.9% 100 ML IV SCH (16:50)
--- NOTE | 2021-07-21 07:56 | PCM.PN ---
- General Info Date of Service: 07/21/21 Admission Dx/Problem (Free Text): Admission Diagnosis/Problem Admission Diagnosis/Problem Pneumonia Functional Status: Reports: Pain Controlled, Tolerating Diet, Ambulating, Urinating, Incentive Spirometry, Other (Acapella ). Denies: New Symptoms - Review of Systems General: Reports: Weakness. Denies: Fever, Fatigue, Malaise, Chills HEENT: Reports: No Symptoms. Denies: Headaches, Sore Throat Pulmonary: Reports: Shortness of Breath, Cough, Sputum. Denies: Pleuritic Chest Pain, Wheezing Cardiovascular: Reports: Dyspnea on Exertion. Denies: Chest Pain, Palpitations, Edema Gastrointestinal: Reports: No Symptoms. Denies: Abdominal Pain, Constipation, Diarrhea, Nausea, Vomiting Genitourinary: Reports: No Symptoms. Denies: Pain Musculoskeletal: Reports: No Symptoms Skin: Reports: No Symptoms. Denies: Cyanosis Neurological: Reports: No Symptoms. Denies: Confusion, Dizziness, Headache, Numbness, Pre-Existing Deficit, Syncope, Tingling, Difficulty Walking, Weakness, Gait Disturbance Psychiatric: Reports: No Symptoms - Patient Data Vitals - Most Recent: Last Vital Signs Temp 98.1 F 07/21/21 05:42 Pulse 64 07/21/21 05:42 Resp 14 07/21/21 05:42 BP 105/87 07/21/21 05:42 Pulse Ox 91 L 07/21/21 05:50 Weight - Most Recent: 204 lb 4.8 oz I&O - Last 24 Hours: Intake & Output 07/20/21 07/21/21 07/21/21 22:59 06:59 14:59 Intake Total 1120 800 Balance 1120 800 Lab Results Last 24 Hours: Laboratory Results - last 24 hr 07/20/21 07/20/21 07/21/21 Range/Units 06:25 06:25 06:16 WBC 12.54 H (4.23-9.07) K/mm3 RBC 3.74 L (4.63-6.08) M/mm3 Hgb 12.9 L (13.7-17.5) gm/dl Hct 37.7 L (40.1-51.0) % MCV 100.8 H (79.0-92.2) fl MCH 34.5 H (25.7-32.2) pg MCHC 34.2 (32.2-35.5) g/dl RDW Std Deviation 52.1 H (35.1-43.9) fL Plt Count 186 (163-337) K/mm3 MPV 11.3 (9.4-12.3) fl Neut % (Auto) 87.8 H (34.0-67.9) % Lymph % (Auto) 5.7 L (21.8-53.1) % [place] % (Auto) 6.0 (5.3-12.2) % Eos % (Auto) 0 L (0.8-7.0) Baso % (Auto) 0.2 (0.1-1.2) % Neut # (Auto) 11.01 H (1.78-5.38) K/mm3 Lymph # (Auto) 0.72 L (1.32-3.57) K/mm3 [place] # (Auto) 0.75 (0.30-0.82) K/mm3 Eos # (Auto) 0.00 L (0.04-0.54) K/mm3 Baso # (Auto) 0.02 (0.01-0.08) K/mm3 Sodium (136-145) mEq/L Potassium (3.5-5.1) mEq/L Chloride (98-107) mEq/L Carbon Dioxide (21-32) mEq/L Anion Gap (5-15) BUN (7-18) mg/dL Creatinine (0.7-1.3) mg/dL Est Cr Clr Drug Dosing mL/min Estimated GFR (MDRD) (>60) mL/min BUN/Creatinine Ratio (14-18) Glucose (70-99) mg/dL Calcium (8.5-10.1) mg/dL Magnesium (1.8-2.4) mg/dL Total Bilirubin (0.2-1.0) mg/dL AST (15-37) U/L ALT (16-63) U/L Alkaline Phosphatase (46-116) U/L C-Reactive Protein (<1.0) mg/dL Total Protein (6.4-8.2) g/dl Albumin (3.4-5.0) g/dl Globulin gm/dL Albumin/Globulin Ratio (1-2) Vitamin D 25-Hydroxy 85.5 (30.0-100.0) ng/ml Procalcitonin 0.09 ng/mL 07/21/21 Range/Units 06:16 WBC (4.23-9.07) K/mm3 RBC (4.63-6.08) M/mm3 Hgb (13.7-17.5) gm/dl Hct (40.1-51.0) % MCV (79.0-92.2) fl MCH (25.7-32.2) pg MCHC (32.2-35.5) g/dl RDW Std Deviation (35.1-43.9) fL Plt Count (163-337) K/mm3 MPV (9.4-12.3) fl Neut % (Auto) (34.0-67.9) % Lymph % (Auto) (21.8-53.1) % [place] % (Auto) (5.3-12.2) % Eos % (Auto) (0.8-7.0) Baso % (Auto) (0.1-1.2) % Neut # (Auto) (1.78-5.38) K/mm3 Lymph # (Auto) (1.32-3.57) K/mm3 [place] # (Auto) (0.30-0.82) K/mm3 Eos # (Auto) (0.04-0.54) K/mm3 Baso # (Auto) (0.01-0.08) K/mm3 Sodium 141 (136-145) mEq/L Potassium 4.3 (3.5-5.1) mEq/L Chloride 109 H (98-107) mEq/L Carbon Dioxide 24 (21-32) mEq/L Anion Gap 12.3 (5-15) BUN 25 H (7-18) mg/dL Creatinine 0.9 (0.7-1.3) mg/dL Est Cr Clr Drug Dosing 107.25 mL/min Estimated GFR (MDRD) > 60 (>60) mL/min BUN/Creatinine Ratio 27.8 H (14-18) Glucose 145 H (70-99) mg/dL Calcium 8.3 L (8.5-10.1) mg/dL Magnesium 1.8 (1.8-2.4) mg/dL Total Bilirubin 0.8 (0.2-1.0) mg/dL AST 75 H (15-37) U/L ALT 46 (16-63) U/L Alkaline Phosphatase 190 H (46-116) U/L C-Reactive Protein 6.6 H* (<1.0) mg/dL Total Protein 5.6 L (6.4-8.2) g/dl Albumin 2.3 L (3.4-5.0) g/dl Globulin 3.3 gm/dL Albumin/Globulin Ratio 0.7 L (1-2) Vitamin D 25-Hydroxy (30.0-100.0) ng/ml Procalcitonin ng/mL Med Orders - Current: Current Medications Acetaminophen (Acetaminophen 325 Mg Tab) 650 mg PO Q4H PRN PRN Reason: Pain (Mild 1-3)/fever Albuterol (Albuterol 6.7 Gm Inhaler) 0 gm INH Q2H PRN PRN Reason: SOB/Wheezing Albuterol/Ipratropium (Albuterol/Ipratropium 3.0-0.5 Mg/3 Ml Neb Soln) 3 ml NEB Q4H PRN PRN Reason: Shortness Of Breath/wheezing Aspirin (Aspirin 81 Mg Tab.Ec) 81 mg PO BID [facility] Last Admin: 07/20/21 22:04 Dose: 81 mg Documented by: Benzocaine/Menthol (Benzocaine/Cetylpyridinium/Menthol Lozenge) 1 lozenge MUCMEM Q2H PRN PRN Reason: Sore Throat Last Admin: 07/20/21 11:43 Dose: 1 lozenge Documented by: Citalopram Hydrobromide (Citalopram 20 Mg Tab) 20 mg PO DAILY [facility] Last Admin: 07/20/21 08:52 Dose: 20 mg Documented by: Dexamethasone (Dexamethasone 4 Mg Tab) 6 mg PO DAILY [facility] Stop: 07/28/21 09:01 Last Admin: 07/20/21 08:52 Dose: 6 mg Documented by: Docusate Sodium (Docusate Sodium 100 Mg Cap) 100 mg PO BID PRN PRN Reason: Constipation Enoxaparin Sodium (Enoxaparin 40 Mg/0.4 Ml Syringe) 40 mg SUBCUT DAILY [facility] Last Admin: 07/20/21 08:53 Dose: 40 mg Documented by: Hydroxyzine HCl (Hydroxyzine Hcl 25 Mg Tab) 25 mg PO BEDTIME PRN PRN Reason: Itching Remdesivir 100 mg/ Sodium (Chloride) 100 mls @ 100 mls/hr IV Q24H [facility] Stop: 07/23/21 18:29 Last Admin: 07/20/21 16:50 Dose: 100 mls/hr Documented by: Lisinopril (Lisinopril 10 Mg Tab) 10 mg PO DAILY [facility] Last Admin: 07/20/21 08:52 Dose: 10 mg Documented by: Ondansetron HCl (Ondansetron 4 Mg Tab.Dis) 4 mg PO Q4H PRN PRN Reason: nausea, able to take PO Ondansetron HCl (Ondansetron 4 Mg/2 Ml Sdv) 4 mg IV Q6H PRN PRN Reason: Nausea/Vomiting Pantoprazole Sodium (Pantoprazole 40 Mg Tab.Cr) 40 mg PO DAILY [facility] Last Admin: 07/20/21 08:52 Dose: 40 mg Documented by: Potassium Chloride (Potassium Chloride 10 Meq Tab.Er) 10 meq PO DAILY [facility] Last Admin: 07/20/21 08:52 Dose: 10 meq Documented by: Sodium Chloride (Sodium Chloride 0.9% 10 Ml Syringe) 10 ml FLUSH ASDIRECTED PRN PRN Reason: Keep Vein Open Last Admin: 07/19/21 14:53 Dose: 10 ml Documented by: Sodium Chloride (Sodium Chloride 0.9% 10 Ml Syringe) 30 ml FLUSH ASDIRECTED [facility] Temazepam (Temazepam 15 Mg Cap) 15 mg PO BEDTIME PRN PRN Reason: Sleep Discontinued Medications Dexamethasone (Dexamethasone 4 Mg/Ml Sdv) 6 mg IVPUSH ONETIME ONE Stop: 07/19/21 16:52 Last Admin: 07/19/21 17:39 Dose: 6 mg Documented by: Diphenhydramine HCl (Diphenhydramine 50 Mg/Ml Sdv) 50 mg IVPUSH ONETIME PRN PRN Reason: hypersensitivity reaction Epinephrine HCl (Epinephrine 1 Mg/Ml Sdv) 0.3 mg IM ONETIME PRN PRN Reason: hypersensitivity reaction Famotidine (Famotidine 20 Mg/2 Ml Sdv) 20 mg IVPUSH ONETIME PRN PRN Reason: hypersensitivity reaction Sodium Chloride (Normal Saline) 1,000 mls @ 1,000 mls/hr IV .BOLUS [facility] Last Admin: 07/19/21 14:44 Dose: 1,000 mls/hr Documented by: CASIRIVIMAB/IMDEVIMAB 10 ml/ (Sodium Chloride) 110 mls @ 220 mls/hr IV ONETIME ONE Stop: 07/19/21 16:40 Last Admin: 07/19/21 17:34 Dose: Not Given Documented by: Remdesivir 200 mg/ Sodium (Chloride) 250 mls @ 250 mls/hr IV ONETIME ONE Stop: 07/19/21 16:55 Last Admin: 07/19/21 17:38 Dose: 250 mls/hr Documented by: Methylprednisolone Sodium Succinate (Methylprednisolone Sodium Succinate 125 Mg/2 Ml Sdv) 125 mg IVPUSH ONETIME PRN PRN Reason: hypersensitivity reaction Morphine Sulfate (Morphine 2 Mg/Ml Syringe) 2 mg IVPUSH Q2H PRN PRN Reason: Pain (severe 7-10) Stop: 07/20/21 17:28 Ondansetron HCl (Ondansetron 4 Mg/2 Ml Sdv) 4 mg IVPUSH ONETIME ONE Stop: 07/19/21 14:11 Last Admin: 07/19/21 14:44 Dose: 4 mg Documented by: Oxycodone HCl (Oxycodone 5 Mg Tab) 5 mg PO Q4H PRN PRN Reason: Pain (moderate 4-6) - Exam Quality Assessment: Supplemental Oxygen (2L), DVT Prophylaxis. No: Urine Catheter General: Alert, Oriented, Cooperative, No Acute Distress HEENT: Pupils Equal, Pupils Reactive, Mucous Membr. Moist/[place] Neck: Supple, Trachea Midline Lungs: Normal Respiratory Effort, Decreased Breath Sounds, Crackles. No: Wheezing Cardiovascular: Regular Rate, Regular Rhythm GI/Abdominal Exam: Normal Bowel Sounds, Soft, Non-Tender, No Distention (Male) Exam: Deferred Back Exam: Normal Inspection, Full Range of Motion Extremities: Normal Inspection, Normal Range of Motion, Non-Tender, No Pedal Edema, Normal Capillary Refill Peripheral Pulses: 2+: Radial (L), Radial (R), Dorsalis Pedis (L), Dorsalis Pe dis (R) Skin: Warm, Dry, Intact Neurological: No New Focal Deficit Psy/Mental Status: Alert, Normal Affect, Normal Mood - Patient Data Lab Results Last 24 hrs: Laboratory Results - last 24 hr 07/20/21 07/20/21 07/21/21 Range/Units 06:25 06:25 06:16 WBC 12.54 H (4.23-9.07) K/mm3 RBC 3.74 L (4.63-6.08) M/mm3 Hgb 12.9 L (13.7-17.5) gm/dl Hct 37.7 L (40.1-51.0) % MCV 100.8 H (79.0-92.2) fl MCH 34.5 H (25.7-32.2) pg MCHC 34.2 (32.2-35.5) g/dl RDW Std Deviation 52.1 H (35.1-43.9) fL Plt Count 186 (163-337) K/mm3 MPV 11.3 (9.4-12.3) fl Neut % (Auto) 87.8 H (34.0-67.9) % Lymph % (Auto) 5.7 L (21.8-53.1) % [place] % (Auto) 6.0 (5.3-12.2) % Eos % (Auto) 0 L (0.8-7.0) Baso % (Auto) 0.2 (0.1-1.2) % Neut # (Auto) 11.01 H (1.78-5.38) K/mm3 Lymph # (Auto) 0.72 L (1.32-3.57) K/mm3 [place] # (Auto) 0.75 (0.30-0.82) K/mm3 Eos # (Auto) 0.00 L (0.04-0.54) K/mm3 Baso # (Auto) 0.02 (0.01-0.08) K/mm3 Sodium (136-145) mEq/L Potassium (3.5-5.1) mEq/L Chloride (98-107) mEq/L Carbon Dioxide (21-32) mEq/L Anion Gap (5-15) BUN (7-18) mg/dL Creatinine (0.7-1.3) mg/dL Est Cr Clr Drug Dosing mL/min Estimated GFR (MDRD) (>60) mL/min BUN/Creatinine Ratio (14-18) Glucose (70-99) mg/dL Calcium (8.5-10.1) mg/dL Magnesium (1.8-2.4) mg/dL Total Bilirubin (0.2-1.0) mg/dL AST (15-37) U/L ALT (16-63) U/L Alkaline Phosphatase (46-116) U/L C-Reactive Protein (<1.0) mg/dL Total Protein (6.4-8.2) g/dl Albumin (3.4-5.0) g/dl Globulin gm/dL Albumin/Globulin Ratio (1-2) Vitamin D 25-Hydroxy 85.5 (30.0-100.0) ng/ml Procalcitonin 0.09 ng/mL 07/21/21 Range/Units 06:16 WBC (4.23-9.07) K/mm3 RBC (4.63-6.08) M/mm3 Hgb (13.7-17.5) gm/dl Hct (40.1-51.0) % MCV (79.0-92.2) fl MCH (25.7-32.2) pg MCHC (32.2-35.5) g/dl RDW Std Deviation (35.1-43.9) fL Plt Count (163-337) K/mm3 MPV (9.4-12.3) fl Neut % (Auto) (34.0-67.9) % Lymph % (Auto) (21.8-53.1) % [place] % (Auto) (5.3-12.2) % Eos % (Auto) (0.8-7.0) Baso % (Auto) (0.1-1.2) % Neut # (Auto) (1.78-5.38) K/mm3 Lymph # (Auto) (1.32-3.57) K/mm3 [place] # (Auto) (0.30-0.82) K/mm3 Eos # (Auto) (0.04-0.54) K/mm3 Baso # (Auto) (0.01-0.08) K/mm3 Sodium 141 (136-145) mEq/L Potassium 4.3 (3.5-5.1) mEq/L Chloride 109 H (98-107) mEq/L Carbon Dioxide 24 (21-32) mEq/L Anion Gap 12.3 (5-15) BUN 25 H (7-18) mg/dL Creatinine 0.9 (0.7-1.3) mg/dL Est Cr Clr Drug Dosing 107.25 mL/min Estimated GFR (MDRD) > 60 (>60) mL/min BUN/Creatinine Ratio 27.8 H (14-18) Glucose 145 H (70-99) mg/dL Calcium 8.3 L (8.5-10.1) mg/dL Magnesium 1.8 (1.8-2.4) mg/dL Total Bilirubin 0.8 (0.2-1.0) mg/dL AST 75 H (15-37) U/L ALT 46 (16-63) U/L Alkaline Phosphatase 190 H (46-116) U/L C-Reactive Protein 6.6 H* (<1.0) mg/dL Total Protein 5.6 L (6.4-8.2) g/dl Albumin 2.3 L (3.4-5.0) g/dl Globulin 3.3 gm/dL Albumin/Globulin Ratio 0.7 L (1-2) Vitamin D 25-Hydroxy (30.0-100.0) ng/ml Procalcitonin ng/mL Result Diagrams: 07/21/21 06:16 07/21/21 06:16 Sepsis Event Note - Evaluation Sepsis Screening Result: No Definite Risk - Focused Exam Vital Signs: Vital Signs Temp Pulse Resp BP Pulse Ox Pulse Ox 07/21/21 05:50 91 L 07/21/21 05:42 98.1 F 64 14 105/87 07/21/21 00:40 98.4 F 72 18 119/76 07/21/21 00:00 91 L 07/20/21 22:04 91 L 07/20/21 22:02 98.2 F 85 12 134/66 07/20/21 20:10 91 L - Problem List & Annotations (1) Acute and chronic respiratory failure SNOMED Code(s): 14173416 Code(s): J96.20 - ACUTE AND CHR RESP FAILURE, UNSP W HYPOXIA OR HYPERCAPNIA Status: Acute Priority: High Current Visit: Yes Qualifiers: Respiratory failure complication: hypoxia Qualified Code(s): J96.21 - Acute and chronic respiratory failure with hypoxia (2) COVID SNOMED Code(s): 497820623 Code(s): U07.1 - COVID-19 Status: Acute Priority: High Current Visit: Yes (3) Hypoxia SNOMED Code(s): 259341077 Code(s): R09.02 - HYPOXEMIA Status: Acute Priority: High Current Visit: Yes (4) Pneumonia due to 2019 novel coronavirus SNOMED Code(s): 646439256602999679 Code(s): U07.1 - COVID-19; J12.82 - PNEUMONIA DUE TO CORONAVIRUS DISEASE 2019 Status: Acute Priority: High Current Visit: Yes (5) COPD (chronic obstructive pulmonary disease) SNOMED Code(s): 78127333 Code(s): J44.9 - CHRONIC OBSTRUCTIVE PULMONARY DISEASE, UNSPECIFIED Status: Chronic Priority: Medium Current Visit: Yes Qualifiers: COPD type: emphysema Emphysema type: unspecified Qualified Code(s): J43.9 - Emphysema, unspecified (6) Coronary artery disease SNOMED Code(s): 39123793 Code(s): I25.10 - ATHSCL HEART DISEASE OF [place] CORONARY ARTERY W/O ANG PCTRS Status: Chronic Priority: Medium Current Visit: Yes Qualifiers: Coronary Disease-Associated Artery/Lesion type: [place] artery [place] vs. transplanted heart: [place] heart Associated angina: without angina Qualified Code(s): I25.10 - Atherosclerotic heart disease of [place] coronary artery without angina pectoris (7) Hypertension SNOMED Code(s): 90287982 Code(s): I10 - ESSENTIAL (PRIMARY) HYPERTENSION Status: Chronic Priority: Medium Current Visit: Yes Qualifiers: Hypertension type: primary hypertension Qualified Code(s): I10 - Essential (primary) hypertension - Problem List Review Problem List Initiated/Reviewed/Updated: Yes - My Orders Last 24 Hours: My Active Orders 07/20/21 07:46 Albuterol [Proventil HFA] See Dose Instructions INH Q2H PRN 07/20/21 07:47 RT Post Treatment Assessment [RC] Click to Edit RT Pre-Treatment Assessment [RC] Click to Edit 07/20/21 07:48 Consult to Respiratory Therapy [Respiratory Care Assess and Treatment] [CONS] Routine 07/20/21 07:49 Positioning, Patient [RC] ASDIRECTED RT Incentive Spirometry [RC] ASDIRECTED Isolation [COMM] Stat 07/20/21 07:50 Height and Weight [RC] 06 Intake and Output [RC] 04,16 Ondansetron [Zofran] 4 mg IV Q6H PRN 07/20/21 09:00 Aspirin [Halfprin] 81 mg PO BID 07/20/21 10:48 Benzocaine/Cetylpyrd/Menthol [Cepacol Sore Throat] 1 lozenge MUCMEM Q2H PRN 07/22/21 05:11 C-REACTIVE PROTEIN [CHEM] AM CBC WITH AUTO DIFF [HEME] AM COMPREHENSIVE METABOLIC PN,CMP [CHEM] AM D-DIMER QUANTITATIVE [COAG] Q48H MAGNESIUM [CHEM] AM 07/23/21 05:11 C-REACTIVE PROTEIN [CHEM] AM CBC WITH AUTO DIFF [HEME] AM COMPREHENSIVE METABOLIC PN,CMP [CHEM] AM MAGNESIUM [CHEM] AM 07/24/21 05:11 C-REACTIVE PROTEIN [CHEM] AM CBC WITH AUTO DIFF [HEME] AM COMPREHENSIVE METABOLIC PN,CMP [CHEM] AM D-DIMER QUANTITATIVE [COAG] Q48H MAGNESIUM [CHEM] AM 07/26/21 05:11 D-DIMER QUANTITATIVE [COAG] Q48H - Plan Plan:: 07/19/2021 The patient is a 61-year-old gentleman who had presented to his clinic initially and was transferred to the emergency department and was admitted to acute hospitalization. The patient was noted to be hypoxic and he does have a history of COPD. The patient will be started on remdesivir. The patient's remdesivir will be started tomorrow at 100 mg IV on a daily basis. The patient will also be placed on steroids dexamethasone at 6 mg p.o. daily. The patient will have a regular health healthy diet as tolerated. He will have DVT prophylaxis with the use of Lovenox 40 mg subcutaneous on a daily basis. The patient will have oxygen support to keep his oxygen saturations around 92%. The patient will also be kept on telemetry. He will have vital signs monitored and his antihypertensive medications will be adjusted as necessary. I have elected to place the patient on the home dose of Celexa 20 mg p.o. daily. Repeat laboratory studies have been ordered for the morning. The patient has been encouraged to ambulate. The patient should be appropriate for discharge if significant improvement and he is finished 5 doses of the remdesivir. 07/20/2021 61-year-old male admitted to the floor for COVID-19 pneumonia treatment. He currently is on 2.5 L with saturations in the low 90s. Labs obtained today show WBC of 4.15. Hemoglobin 13.6. Platelet 143,000. Neutrophils are elevated at 84.6%. D-dimer is 1.07. Sodium 141. Potassium 4.8. Chloride 108. Carbon dioxide 24. Anion gap 13.8. BUN is 25. Creatinine 0.9. GFR greater than 60. Glucose is 166. Calcium 8.1. Magnesium 2.0. Total bilirubin is down to 0.9. AST 76. ALT 41, alkaline phosphatase is 218. CRP is down to 13.6. Albumin is down to 2.3. Home aspirin has been resumed and he was reporting a sore throat for which Cepacol l ozenges have been ordered. He is on day 2 of dexamethasone and remdesivir. Procalcitonin vitamin D have been ordered and are pending. Otherwise he reports he feels "pretty good" but states he is still quite weak. He will remain hospitalized for COVID-19 pneumonia treatment. We did discuss proning and I- S/Acapella have been ordered. Oxygen goal has been decreased to 88 to 95%. He will remain hospitalized pending improvement in oxygen demand. 07/21/2021 This is a 61-year-old male admitted to the floor for treatment of COVID-19 pneumonia. Today he reports he feels better but still is weak and does have a cough. He is on 2 L. WBC today was up to 12.54, likely secondary to steroids but we will monitor this. Hemoglobin is 12.9. Platelet 186,000. Neutrophils are 87.8. Sodium is 141. Potassium 4.3. Chloride 109. Carbon dioxide 24. Anion gap is 12.3. BUN is 25. Creatinine 0.9. GFR greater than 60. Glucose is 145. Calcium 8.3. Magnesium is 1.8. Bilirubin 0.8. AST 75, ALT 46, alkaline phosphatase 190. CRP is 6.6. Total protein is 5.6. Albumin is 2.3. Vitamin D obtained yesterday was 85.5 and procalcitonin was 0.09. We will continue treatment for COVID-19 pneumonia with remdesivir and dexamethasone. Today is day 2 of dexamethasone and remdesivir likely discharge in 2 to 3 days pending continued improvement.
[2021-07-21] MEDS: Pantoprazole 40 MG Tab.CR PO SCH (08:01)
[2021-07-21] MEDS: Potassium Chloride 10 MEQ Tab.ER PO SCH (08:01)
[2021-07-21] MEDS: Aspirin 81 MG Tab.EC PO SCH ×2 (08:01→20:35)
[2021-07-21] MEDS: Lisinopril 10 MG Tab PO SCH (08:01)
[2021-07-21] MEDS: Citalopram 20 MG Tab PO SCH (08:01)
[2021-07-21] MEDS: Enoxaparin 40 MG/0.4 ML Syringe SUBCUT SCH (08:01)
[2021-07-21] MEDS: Dexamethasone 4 MG Tab PO SCH (08:02)
[2021-07-21] MEDS: Benzocaine/Cetylpyridinium/Menthol Lozenge MUCMEM PRN ×2 (08:05→20:35)
[2021-07-21] MEDS ORDERED: FLU Vacc QS2021-22 36MOS UP/PF 60 MCG/0.5 ML Syringe IM ONE (13:00)
[2021-07-21] MEDS: REMDESIVIR 100 MG in Sodium Chloride 0.9% 100 ML IV SCH (16:41)
--- NOTE | 2021-07-22 07:12 | PCM.PN ---
- General Info Date of Service: 07/22/21 Admission Dx/Problem (Free Text): Admission Diagnosis/Problem Admission Diagnosis/Problem Pneumonia Functional Status: Reports: Pain Controlled, Tolerating Diet, Ambulating, Urinating, Incentive Spirometry, Other (Acapella ). Denies: New Symptoms - Review of Systems General: Reports: Weakness (mild ). Denies: Fever, Fatigue, Malaise, Chills HEENT: Reports: No Symptoms. Denies: Headaches, Sore Throat Pulmonary: Reports: Shortness of Breath, Cough, Sputum, Wheezing. Denies: Pleuritic Chest Pain Cardiovascular: Reports: Dyspnea on Exertion. Denies: Chest Pain, Palpitations, Edema Gastrointestinal: Reports: No Symptoms. Denies: Abdominal Pain, Constipation, Diarrhea, Nausea, Vomiting Genitourinary: Reports: No Symptoms. Denies: Pain Musculoskeletal: Reports: No Symptoms Skin: Reports: No Symptoms. Denies: Cyanosis Neurological: Reports: No Symptoms. Denies: Confusion, Dizziness, Headache, Numbness, Pre-Existing Deficit, Seizure, Syncope, Tingling, Difficulty Walking, Gait Disturbance Psychiatric: Reports: No Symptoms - Patient Data Vitals - Most Recent: Last Vital Signs Temp 98.1 F 07/22/21 06:06 Pulse 53 L 07/22/21 06:06 Resp 18 07/22/21 06:06 BP 108/56 L 07/22/21 06:06 Pulse Ox 91 L 07/22/21 06:41 Weight - Most Recent: 202 lb 14.4 oz I&O - Last 24 Hours: Intake & Output 07/21/21 07/22/21 07/22/21 22:59 06:59 14:59 Intake Total 1120 500 Balance 1120 500 Lab Results Last 24 Hours: Laboratory Results - last 24 hr 07/21/21 07/21/21 07/22/21 Range/Units 06:16 06:16 06:31 WBC 12.54 H 12.15 H (4.23-9.07) K/mm3 RBC 3.74 L 3.87 L (4.63-6.08) M/mm3 Hgb 12.9 L 13.1 L (13.7-17.5) gm/dl Hct 37.7 L 39.3 L (40.1-51.0) % MCV 100.8 H 101.6 H (79.0-92.2) fl MCH 34.5 H 33.9 H (25.7-32.2) pg MCHC 34.2 33.3 (32.2-35.5) g/dl RDW Std Deviation 52.1 H 51.3 H (35.1-43.9) fL Plt Count 186 200 (163-337) K/mm3 MPV 11.3 11.2 (9.4-12.3) fl Neut % (Auto) 87.8 H 87.0 H (34.0-67.9) % Lymph % (Auto) 5.7 L 5.1 L (21.8-53.1) % [place] % (Auto) 6.0 7.2 (5.3-12.2) % Eos % (Auto) 0 L 0 L (0.8-7.0) Baso % (Auto) 0.2 0.2 (0.1-1.2) % Neut # (Auto) 11.01 H 10.58 H (1.78-5.38) K/mm3 Lymph # (Auto) 0.72 L 0.62 L (1.32-3.57) K/mm3 [place] # (Auto) 0.75 0.87 H (0.30-0.82) K/mm3 Eos # (Auto) 0.00 L 0.00 L (0.04-0.54) K/mm3 Baso # (Auto) 0.02 0.02 (0.01-0.08) K/mm3 Manual Slide Review Abnormal smear Sodium 141 (136-145) mEq/L Potassium 4.3 (3.5-5.1) mEq/L Chloride 109 H (98-107) mEq/L Carbon Dioxide 24 (21-32) mEq/L Anion Gap 12.3 (5-15) BUN 25 H (7-18) mg/dL Creatinine 0.9 (0.7-1.3) mg/dL Est Cr Clr Drug Dosing 107.25 mL/min Estimated GFR (MDRD) > 60 (>60) mL/min BUN/Creatinine Ratio 27.8 H (14-18) Glucose 145 H (70-99) mg/dL Calcium 8.3 L (8.5-10.1) mg/dL Magnesium 1.8 (1.8-2.4) mg/dL Total Bilirubin 0.8 (0.2-1.0) mg/dL AST 75 H (15-37) U/L ALT 46 (16-63) U/L Alkaline Phosphatase 190 H (46-116) U/L C-Reactive Protein 6.6 H* (<1.0) mg/dL Total Protein 5.6 L (6.4-8.2) g/dl Albumin 2.3 L (3.4-5.0) g/dl Globulin 3.3 gm/dL Albumin/Globulin Ratio 0.7 L (1-2) Med Orders - Current: Current Medications Acetaminophen (Acetaminophen 325 Mg Tab) 650 mg PO Q4H PRN PRN Reason: Pain (Mild 1-3)/fever Albuterol (Albuterol 6.7 Gm Inhaler) 0 gm INH Q2H PRN PRN Reason: SOB/Wheezing Albuterol/Ipratropium (Albuterol/Ipratropium 3.0-0.5 Mg/3 Ml Neb Soln) 3 ml NEB Q4H PRN PRN Reason: Shortness Of Breath/wheezing Aspirin (Aspirin 81 Mg Tab.Ec) 81 mg PO BID [facility] Last Admin: 07/21/21 20:35 Dose: 81 mg Documented by: Benzocaine/Menthol (Benzocaine/Cetylpyridinium/Menthol Lozenge) 1 lozenge MUCMEM Q2H PRN PRN Reason: Sore Throat Last Admin: 07/21/21 20:35 Dose: 1 lozenge Documented by: Citalopram Hydrobromide (Citalopram 20 Mg Tab) 20 mg PO DAILY [facility] Last Admin: 07/21/21 08:01 Dose: 20 mg Documented by: Dexamethasone (Dexamethasone 4 Mg Tab) 6 mg PO DAILY [facility] Stop: 07/28/21 09:01 Last Admin: 07/21/21 08:02 Dose: 6 mg Documented by: Docusate Sodium (Docusate Sodium 100 Mg Cap) 100 mg PO BID PRN PRN Reason: Constipation Enoxaparin Sodium (Enoxaparin 40 Mg/0.4 Ml Syringe) 40 mg SUBCUT DAILY [facility] Last Admin: 07/21/21 08:01 Dose: 40 mg Documented by: Hydroxyzine HCl (Hydroxyzine Hcl 25 Mg Tab) 25 mg PO BEDTIME PRN PRN Reason: Itching Remdesivir 100 mg/ Sodium (Chloride) 100 mls @ 100 mls/hr IV Q24H [facility] Stop: 07/23/21 18:29 Last Admin: 07/21/21 16:41 Dose: 100 mls/hr Documented by: Lisinopril (Lisinopril 10 Mg Tab) 10 mg PO DAILY [facility] Last Admin: 07/21/21 08:01 Dose: 10 mg Documented by: Ondansetron HCl (Ondansetron 4 Mg Tab.Dis) 4 mg PO Q4H PRN PRN Reason: nausea, able to take PO Ondansetron HCl (Ondansetron 4 Mg/2 Ml Sdv) 4 mg IV Q6H PRN PRN Reason: Nausea/Vomiting Pantoprazole Sodium (Pantoprazole 40 Mg Tab.Cr) 40 mg PO DAILY [facility] Last Admin: 07/21/21 08:01 Dose: 40 mg Documented by: Potassium Chloride (Potassium Chloride 10 Meq Tab.Er) 10 meq PO DAILY [facility] Last Admin: 07/21/21 08:01 Dose: 10 meq Documented by: Sodium Chloride (Sodium Chloride 0.9% 10 Ml Syringe) 10 ml FLUSH ASDIRECTED PRN PRN Reason: Keep Vein Open Last Admin: 07/19/21 14:53 Dose: 10 ml Documented by: Temazepam (Temazepam 15 Mg Cap) 15 mg PO BEDTIME PRN PRN Reason: Sleep Discontinued Medications Dexamethasone (Dexamethasone 4 Mg/Ml Sdv) 6 mg IVPUSH ONETIME ONE Stop: 07/19/21 16:52 Last Admin: 07/19/21 17:39 Dose: 6 mg Documented by: Diphenhydramine HCl (Diphenhydramine 50 Mg/Ml Sdv) 50 mg IVPUSH ONETIME PRN PRN Reason: hypersensitivity reaction Epinephrine HCl (Epinephrine 1 Mg/Ml Sdv) 0.3 mg IM ONETIME PRN PRN Reason: hypersensitivity reaction Famotidine (Famotidine 20 Mg/2 Ml Sdv) 20 mg IVPUSH ONETIME PRN PRN Reason: hypersensitivity reaction Sodium Chloride (Normal Saline) 1,000 mls @ 1,000 mls/hr IV .BOLUS [facility] Last Admin: 07/19/21 14:44 Dose: 1,000 mls/hr Documented by: CASIRIVIMAB/IMDEVIMAB 10 ml/ (Sodium Chloride) 110 mls @ 220 mls/hr IV ONETIME ONE Stop: 07/19/21 16:40 Last Admin: 07/19/21 17:34 Dose: Not Given Documented by: Remdesivir 200 mg/ Sodium (Chloride) 250 mls @ 250 mls/hr IV ONETIME ONE Stop: 07/19/21 16:55 Last Admin: 07/19/21 17:38 Dose: 250 mls/hr Documented by: Influenza Virus Vaccine (Flu Vacc [id number] 36mos Up/Pf 60 Mcg/0.5 Ml Syringe) 60 mcg IM .ONCE ONE Stop: 07/21/21 13:01 Methylprednisolone Sodium Succinate (Methylprednisolone Sodium Succinate 125 Mg/2 Ml Sdv) 125 mg IVPUSH ONETIME PRN PRN Reason: hypersensitivity reaction Morphine Sulfate (Morphine 2 Mg/Ml Syringe) 2 mg IVPUSH Q2H PRN PRN Reason: Pain (severe 7-10) Stop: 07/20/21 17:28 Ondansetron HCl (Ondansetron 4 Mg/2 Ml Sdv) 4 mg IVPUSH ONETIME ONE Stop: 07/19/21 14:11 Last Admin: 07/19/21 14:44 Dose: 4 mg Documented by: Oxycodone HCl (Oxycodone 5 Mg Tab) 5 mg PO Q4H PRN PRN Reason: Pain (moderate 4-6) Sodium Chloride (Sodium Chloride 0.9% 10 Ml Syringe) 30 ml FLUSH ASDIRECTED PAULINO - Exam Quality Assessment: Supplemental Oxygen (2L), DVT Prophylaxis. No: Urine Catheter General: Alert, Oriented, Cooperative, No Acute Distress HEENT: Pupils Equal, Pupils Reactive, Mucous Membr. Moist/[place] Neck: Supple, Trachea Midline Lungs: Normal Respiratory Effort, Decreased Breath Sounds, Crackles, Wheezing Cardiovascular: Regular Rate, Regular Rhythm GI/Abdominal Exam: Normal Bowel Sounds, Soft, Non-Tender, No Distention (Male) Exam: Deferred Back Exam: Normal Inspection, Full Range of Motion Extremities: Normal Inspection, Normal Range of Motion, Non-Tender, No Pedal Edema, Normal Capillary Refill Peripheral Pulses: 2+: Radial (L), Radial (R), Dorsalis Pedis (L), Dorsalis Pedis (R) Skin: Warm, Dry, Intact Neurological: No New Focal Deficit Psy/Mental Status: Alert, Normal Affect, Normal Mood - Patient Data Lab Results Last 24 hrs: Laboratory Results - last 24 hr 07/21/21 07/21/21 07/22/21 Range/Units 06:16 06:16 06:31 WBC 12.54 H 12.15 H (4.23-9.07) K/mm3 RBC 3.74 L 3.87 L (4.63-6.08) M/mm3 Hgb 12.9 L 13.1 L (13.7-17.5) gm/dl Hct 37.7 L 39.3 L (40.1-51.0) % MCV 100.8 H 101.6 H (79.0-92.2) fl MCH 34.5 H 33.9 H (25.7-32.2) pg MCHC 34.2 33.3 (32.2-35.5) g/dl RDW Std Deviation 52.1 H 51.3 H (35.1-43.9) fL Plt Count 186 200 (163-337) K/mm3 MPV 11.3 11.2 (9.4-12.3) fl Neut % (Auto) 87.8 H 87.0 H (34.0-67.9) % Lymph % (Auto) 5.7 L 5.1 L (21.8-53.1) % [place] % (Auto) 6.0 7.2 (5.3-12.2) % Eos % (Auto) 0 L 0 L (0.8-7.0) Baso % (Auto) 0.2 0.2 (0.1-1.2) % Neut # (Auto) 11.01 H 10.58 H (1.78-5.38) K/mm3 Lymph # (Auto) 0.72 L 0.62 L (1.32-3.57) K/mm3 [place] # (Auto) 0.75 0.87 H (0.30-0.82) K/mm3 Eos # (Auto) 0.00 L 0.00 L (0.04-0.54) K/mm3 Baso # (Auto) 0.02 0.02 (0.01-0.08) K/mm3 Manual Slide Review Abnormal smear Sodium 141 (136-145) mEq/L Potassium 4.3 (3.5-5.1) mEq/L Chloride 109 H (98-107) mEq/L Carbon Dioxide 24 (21-32) mEq/L Anion Gap 12.3 (5-15) BUN 25 H (7-18) mg/dL Creatinine 0.9 (0.7-1.3) mg/dL Est Cr Clr Drug Dosing 107.25 mL/min Estimated GFR (MDRD) > 60 (>60) mL/min BUN/Creatinine Ratio 27.8 H (14-18) Glucose 145 H (70-99) mg/dL Calcium 8.3 L (8.5-10.1) mg/dL Magnesium 1.8 (1.8-2.4) mg/dL Total Bilirubin 0.8 (0.2-1.0) mg/dL AST 75 H (15-37) U/L ALT 46 (16-63) U/L Alkaline Phosphatase 190 H (46-116) U/L C-Reactive Protein 6.6 H* (<1.0) mg/dL Total Protein 5.6 L (6.4-8.2) g/dl Albumin 2.3 L (3.4-5.0) g/dl Globulin 3.3 gm/dL Albumin/Globulin Ratio 0.7 L (1-2) Result Diagrams: 07/22/21 06:31 07/22/21 06:31 Sepsis Event Note - Evaluation Sepsis Screening Result: No Definite Risk - Focused Exam Vital Signs: Vital Signs Temp Pulse Resp BP Pulse Ox Pulse Ox 07/22/21 06:41 91 L 07/22/21 06:06 98.1 F 53 L 18 108/56 L 92 L 07/21/21 21:57 90 L 07/21/21 20:33 97.9 F 74 18 111/78 90 L 07/21/21 19:58 92 L - Problem List & Annotations (1) Acute and chronic respiratory failure SNOMED Code(s): 10104135 Code(s): J96.20 - ACUTE AND CHR RESP FAILURE, UNSP W HYPOXIA OR HYPERCAPNIA Status: Acute Priority: High Current Visit: Yes Qualifiers: Respiratory failure complication: hypoxia Qualified Code(s): J96.21 - Acute and chronic respiratory failure with hypoxia (2) COVID SNOMED Code(s): 379299557 Code(s): U07.1 - COVID-19 Status: Acute Priority: High Current Visit: Yes (3) Hypoxia SNOMED Code(s): 533355726 Code(s): R09.02 - HYPOXEMIA Status: Acute Priority: High Current Visit: Yes (4) Pneumonia due to 2019 novel coronavirus SNOMED Code(s): 160419079549248690 Code(s): U07.1 - COVID-19; J12.82 - PNEUMONIA DUE TO CORONAVIRUS DISEASE 2019 Status: Acute Priority: High Current Visit: Yes (5) COPD (chronic obstructive pulmonary disease) SNOMED Code(s): 80949440 Code(s): J44.9 - CHRONIC OBSTRUCTIVE PULMONARY DISEASE, UNSPECIFIED Status: Chronic Priority: Medium Current Visit: Yes Qualifiers: COPD type: emphysema Emphysema type: unspecified Qualified Code(s): J43.9 - Emphysema, unspecified (6) Coronary artery disease SNOMED Code(s): 20551052 Code(s): I25.10 - ATHSCL HEART DISEASE OF [place] CORONARY ARTERY W/O ANG PCTRS Status: Chronic Priority: Medium Current Visit: Yes Qualifiers: Coronary Disease-Associated Artery/Lesion type: [place] artery [place] vs. transplanted heart: [place] heart Associated angina: without angina Qualified Code(s): I25.10 - Atherosclerotic heart disease of [place] coronary artery without angina pectoris (7) Hypertension SNOMED Code(s): 03990978 Code(s): I10 - ESSENTIAL (PRIMARY) HYPERTENSION Status: Chronic Priority: Medium Current Visit: Yes Qualifiers: Hypertension type: primary hypertension Qualified Code(s): I10 - Essential (primary) hypertension (8) Hypomagnesemia SNOMED Code(s): 296019627 Code(s): E83.42 - HYPOMAGNESEMIA Status: Acute Priority: High Current Visit: Yes - Problem List Review Problem List Initiated/Reviewed/Updated: Yes - My Orders Last 24 Hours: My Active Orders 07/22/21 06:31 C-REACTIVE PROTEIN [CHEM] AM COMPREHENSIVE METABOLIC PN,CMP [CHEM] AM D-DIMER QUANTITATIVE [COAG] Q48H MAGNESIUM [CHEM] AM 07/23/21 05:11 C-REACTIVE PROTEIN [CHEM] AM CBC WITH AUTO DIFF [HEME] AM COMPREHENSIVE METABOLIC PN,CMP [CHEM] AM MAGNESIUM [CHEM] AM 07/24/21 05:11 C-REACTIVE PROTEIN [CHEM] AM CBC WITH AUTO DIFF [HEME] AM COMPREHENSIVE METABOLIC PN,CMP [CHEM] AM D-DIMER QUANTITATIVE [COAG] Q48H MAGNESIUM [CHEM] AM 07/26/21 05:11 D-DIMER QUANTITATIVE [COAG] Q48H - Plan Plan:: 07/19/2021 The patient is a 61-year-old gentleman who had presented to his clinic initially and was transferred to the emergency department and was admitted to acute hospitalization. The patient was noted to be hypoxic and he does have a history of COPD. The patient will be started on remdesivir. The patient's remdesivir will be started tomorrow at 100 mg IV on a daily basis. The patient will also be placed on steroids dexamethasone at 6 mg p.o. daily. The patient will have a regular health healthy diet as tolerated. He will have DVT prophylaxis with the use of Lovenox 40 mg subcutaneous on a daily basis. The patient will have oxygen support to keep his oxygen saturations around 92%. The patient will also be kept on telemetry. He will have vital signs monitored and his anti hypertensive medications will be adjusted as necessary. I have elected to place the patient on the home dose of Celexa 20 mg p.o. daily. Repeat laboratory studies have been ordered for the morning. The patient has been encouraged to ambulate. The patient should be appropriate for discharge if significant improvement and he is finished 5 doses of the remdesivir. 07/20/2021 61-year-old male admitted to the floor for COVID-19 pneumonia treatment. He currently is on 2.5 L with saturations in the low 90s. Labs obtained today show WBC of 4.15. Hemoglobin 13.6. Platelet 143,000. Neutrophils are elevated at 84.6%. D-dimer is 1.07. Sodium 141. Potassium 4.8. Chloride 108. Carbon dioxide 24. Anion gap 13.8. BUN is 25. Creatinine 0.9. GFR greater than 60. Glucose is 166. Calcium 8.1. Magnesium 2.0. Total bilirubin is down to 0.9. AST 76. ALT 41, alkaline phosphatase is 218. CRP is down to 13.6. Albumin is down to 2.3. Home aspirin has been resumed and he was reporting a sore throat for which Cepacol lozenges have been ordered. He is on day 2 of dexamethasone and remdesivir. Procalcitonin vitamin D have been ordered and are pending. Otherwise he reports he feels "pretty good" but states he is still quite weak. He will remain hospitalized for COVID-19 pneumonia treatment. We did discuss proning and I- S/Acapella have been ordered. Oxygen goal has been decreased to 88 to 95%. He will remain hospitalized pending improvement in oxygen demand. 07/21/2021 This is a 61-year-old male admitted to the floor for treatment of COVID-19 pneumonia. Today he reports he feels better but still is weak and does have a cough. He is on 2 L. WBC today was up to 12.54, likely secondary to steroids but we will monitor this. Hemoglobin is 12.9. Platelet 186,000. Neutrophils are 87.8. Sodium is 141. Potassium 4.3. Chloride 109. Carbon dioxide 24. Anion gap is 12.3. BUN is 25. Creatinine 0.9. GFR greater than 60. Glucose is 145. Calcium 8.3. Magnesium is 1.8. Bilirubin 0.8. AST 75, ALT 46, alkaline phosphatase 190. CRP is 6.6. Total protein is 5.6. Albumin is 2.3. Vitamin D obtained yesterday was 85.5 and procalcitonin was 0.09. We will continue treatment for COVID-19 pneumonia with remdesivir and dexamethasone. Today is day 2 of dexamethasone and remdesivir likely discharge in 2 to 3 days pending continued improvement. 07/22/2021 This is a 61-year-old male admitted to the floor for COVID-19 pneumonia treatment. He remains on 2 L with saturations in the low 90s. Labs today show a WBC of 12.15. Hemoglobin is 13.1. Platelet 200,000. Neutrophils are elevated 87%. D-dimer is down to 1.00. Sodium 139. Potassium 4.1. Chloride 106. Carbon oxide 27. Anion gap is 10.1. BUN is 24. Creatinine 0.8. GFR greater than 60. Glucose is 142. Calcium 8.2. Magnesium is low at 1.7 and this will be supplemented with 2 g. Total bilirubin 1.0. AST is 84, ALT 57, alkaline phosphatase 180. CRP is down to 3.7. Protein is 5.5. Albumin is 2.3. He reports some mucus and a productive cough so we will start Mucinex twice daily he continues to receive remdesivir and dexamethasone. He has been utilizing his incentive spirometer and Acapella. We did discuss proning again. He states he is walking around the room without difficulty. Overall he is doing okay. Plan will be to discharge once off of oxygen or 5 days of treatment are completed. Length of stay greater than 96 hours due to continued need for COVID-19 pneumonia treatment.
[2021-07-22] MEDS ORDERED: Magnesium Sulfate/Water 2 GM in Premix Bag 1 BAG IV ONE (07:55)
[2021-07-22] MEDS: Aspirin 81 MG Tab.EC PO SCH ×2 (08:34→21:37)
[2021-07-22] MEDS: Dexamethasone 4 MG Tab PO SCH (08:35)
[2021-07-22] MEDS: Citalopram 20 MG Tab PO SCH (08:35)
[2021-07-22] MEDS: Lisinopril 10 MG Tab PO SCH (08:35)
[2021-07-22] MEDS: Potassium Chloride 10 MEQ Tab.ER PO SCH (08:36)
[2021-07-22] MEDS: Pantoprazole 40 MG Tab.CR PO SCH (08:36)
[2021-07-22] MEDS: Enoxaparin 40 MG/0.4 ML Syringe SUBCUT SCH (08:37)
[2021-07-22] MEDS: guaiFENesin 600 MG Tab.ER PO SCH ×2 (09:39→21:37)
[2021-07-22] MEDS: REMDESIVIR 100 MG in Sodium Chloride 0.9% 100 ML IV SCH (17:07)
[2021-07-22] MEDS: Albuterol/Ipratropium 3.0-0.5 MG/3 ML Neb Soln NEB PRN (20:48)
--- NOTE | 2021-07-23 07:03 | PCM.PN ---
- General Info Date of Service: 07/23/21 Admission Dx/Problem (Free Text): Admission Diagnosis/Problem Admission Diagnosis/Problem Pneumonia Functional Status: Reports: Pain Controlled, Tolerating Diet, Ambulating, Urinating, Incentive Spirometry, Other (Acapella ). Denies: New Symptoms - Review of Systems General: Reports: No Symptoms. Denies: Fever, Weakness, Fatigue, Malaise, Chills HEENT: Reports: No Symptoms. Denies: Headaches, Sore Throat Pulmonary: Reports: Shortness of Breath, Cough, Sputum, Wheezing Cardiovascular: Reports: Dyspnea on Exertion. Denies: Chest Pain, Palpitations, Edema, Lightheadedness Gastrointestinal: Reports: No Symptoms. Denies: Abdominal Pain, Constipation, Decreased Appetite, Diarrhea, Nausea, Vomiting Genitourinary: Reports: No Symptoms. Denies: Pain Musculoskeletal: Reports: No Symptoms Skin: Reports: No Symptoms. Denies: Cyanosis Neurological: Reports: No Symptoms. Denies: Confusion, Dizziness, Headache, Numbness, Paresthesia, Pre-Existing Deficit, Seizure, Syncope, Tingling, Tremors, Trouble Speaking, Difficulty Walking, Weakness, Gait Disturbance Psychiatric: Reports: No Symptoms - Patient Data Vitals - Most Recent: Last Vital Signs Temp 98.1 F 07/23/21 05:41 Pulse 59 L 07/23/21 05:41 Resp 18 07/23/21 05:41 BP 134/74 07/23/21 05:41 Pulse Ox 92 L 07/23/21 05:41 Weight - Most Recent: 202 lb I&O - Last 24 Hours: Intake & Output 07/22/21 07/23/21 07/23/21 22:59 06:59 14:59 Intake Total 1470 600 Balance 1470 600 Lab Results Last 24 Hours: Laboratory Results - last 24 hr 07/22/21 07/22/21 07/22/21 Range/Units 06:31 06:31 06:31 WBC 12.15 H (4.23-9.07) K/mm3 RBC 3.87 L (4.63-6.08) M/mm3 Hgb 13.1 L (13.7-17.5) gm/dl Hct 39.3 L (40.1-51.0) % MCV 101.6 H (79.0-92.2) fl MCH 33.9 H (25.7-32.2) pg MCHC 33.3 (32.2-35.5) g/dl RDW Std Deviation 51.3 H (35.1-43.9) fL Plt Count 200 (163-337) K/mm3 MPV 11.2 (9.4-12.3) fl Neut % (Auto) 87.0 H (34.0-67.9) % Lymph % (Auto) 5.1 L (21.8-53.1) % [place] % (Auto) 7.2 (5.3-12.2) % Eos % (Auto) 0 L (0.8-7.0) Baso % (Auto) 0.2 (0.1-1.2) % Neut # (Auto) 10.58 H (1.78-5.38) K/mm3 Lymph # (Auto) 0.62 L (1.32-3.57) K/mm3 [place] # (Auto) 0.87 H (0.30-0.82) K/mm3 Eos # (Auto) 0.00 L (0.04-0.54) K/mm3 Baso # (Auto) 0.02 (0.01-0.08) K/mm3 D-Dimer, Quantitative 1.00 H (0.19-0.50) mg/L Sodium 139 (136-145) mEq/L Potassium 4.1 (3.5-5.1) mEq/L Chloride 106 (98-107) mEq/L Carbon Dioxide 27 (21-32) mEq/L Anion Gap 10.1 (5-15) BUN 24 H (7-18) mg/dL Creatinine 0.8 (0.7-1.3) mg/dL Est Cr Clr Drug Dosing 120.66 mL/min Estimated GFR (MDRD) > 60 (>60) mL/min BUN/Creatinine Ratio 30.0 H (14-18) Glucose 142 H (70-99) mg/dL Calcium 8.2 L (8.5-10.1) mg/dL Magnesium 1.7 L (1.8-2.4) mg/dL Total Bilirubin 1.0 (0.2-1.0) mg/dL AST 84 H (15-37) U/L ALT 57 (16-63) U/L Alkaline Phosphatase 180 H (46-116) U/L C-Reactive Protein 3.7 H* (<1.0) mg/dL Total Protein 5.5 L (6.4-8.2) g/dl Albumin 2.3 L (3.4-5.0) g/dl Globulin 3.2 gm/dL Albumin/Globulin Ratio 0.7 L (1-2) 07/23/21 Range/Units 04:38 WBC 11.71 H (4.23-9.07) K/mm3 RBC 3.90 L (4.63-6.08) M/mm3 Hgb 13.3 L (13.7-17.5) gm/dl Hct 39.1 L (40.1-51.0) % MCV 100.3 H (79.0-92.2) fl MCH 34.1 H (25.7-32.2) pg MCHC 34.0 (32.2-35.5) g/dl RDW Std Deviation 49.0 H (35.1-43.9) fL Plt Count 211 (163-337) K/mm3 MPV 11.2 (9.4-12.3) fl Neut % (Auto) 83.8 H (34.0-67.9) % Lymph % (Auto) 6.0 L (21.8-53.1) % [place] % (Auto) 9.6 (5.3-12.2) % Eos % (Auto) 0 L (0.8-7.0) Baso % (Auto) 0.1 (0.1-1.2) % Neut # (Auto) 9.82 H (1.78-5.38) K/mm3 Lymph # (Auto) 0.70 L (1.32-3.57) K/mm3 [place] # (Auto) 1.12 H (0.30-0.82) K/mm3 Eos # (Auto) 0.00 L (0.04-0.54) K/mm3 Baso # (Auto) 0.01 (0.01-0.08) K/mm3 D-Dimer, Quantitative (0.19-0.50) mg/L Sodium (136-145) mEq/L Potassium (3.5-5.1) mEq/L Chloride (98-107) mEq/L Carbon Dioxide (21-32) mEq/L Anion Gap (5-15) BUN (7-18) mg/dL Creatinine (0.7-1.3) mg/dL Est Cr Clr Drug Dosing mL/min Estimated GFR (MDRD) (>60) mL/min BUN/Creatinine Ratio (14-18) Glucose (70-99) mg/dL Calcium (8.5-10.1) mg/dL Magnesium (1.8-2.4) mg/dL Total Bilirubin (0.2-1.0) mg/dL AST (15-37) U/L ALT (16-63) U/L Alkaline Phosphatase (46-116) U/L C-Reactive Protein (<1.0) mg/dL Total Protein (6.4-8.2) g/dl Albumin (3.4-5.0) g/dl Globulin gm/dL Albumin/Globulin Ratio (1-2) Med Orders - Current: Current Medications Acetaminophen (Acetaminophen 325 Mg Tab) 650 mg PO Q4H PRN PRN Reason: Pain (Mild 1-3)/fever Albuterol (Albuterol 6.7 Gm Inhaler) 0 gm INH Q2H PRN PRN Reason: SOB/Wheezing Albuterol/Ipratropium (Albuterol/Ipratropium 3.0-0.5 Mg/3 Ml Neb Soln) 3 ml NEB Q4H PRN PRN Reason: Shortness Of Breath/wheezing Last Admin: 07/22/21 20:48 Dose: 3 ml Documented by: Aspirin (Aspirin 81 Mg Tab.Ec) 81 mg PO BID [facility] Last Admin: 07/22/21 21:37 Dose: 81 mg Documented by: Benzocaine/Menthol (Benzocaine/Cetylpyridinium/Menthol Lozenge) 1 lozenge MUCMEM Q2H PRN PRN Reason: Sore Throat Last Admin: 07/21/21 20:35 Dose: 1 lozenge Documented by: Citalopram Hydrobromide (Citalopram 20 Mg Tab) 20 mg PO DAILY [facility] Last Admin: 07/22/21 08:35 Dose: 20 mg Documented by: Dexamethasone (Dexamethasone 4 Mg Tab) 6 mg PO DAILY [facility] Stop: 07/28/21 09:01 Last Admin: 07/22/21 08:35 Dose: 6 mg Documented by: Docusate Sodium (Docusate Sodium 100 Mg Cap) 100 mg PO BID PRN PRN Reason: Constipation Enoxaparin Sodium (Enoxaparin 40 Mg/0.4 Ml Syringe) 40 mg SUBCUT DAILY [facility] Last Admin: 07/22/21 08:37 Dose: 40 mg Documented by: Guaifenesin (Guaifenesin 600 Mg Tab.Er) 600 mg PO BID [facility] Last Admin: 07/22/21 21:37 Dose: 600 mg Documented by: Hydroxyzine HCl (Hydroxyzine Hcl 25 Mg Tab) 25 mg PO BEDTIME PRN PRN Reason: Itching Remdesivir 100 mg/ Sodium (Chloride) 100 mls @ 100 mls/hr IV Q24H [facility] Stop: 07/23/21 18:29 Last Admin: 07/22/21 17:07 Dose: 100 mls/hr Documented by: Lisinopril (Lisinopril 10 Mg Tab) 10 mg PO DAILY [facility] Last Admin: 07/22/21 08:35 Dose: 10 mg Documented by: Ondansetron HCl (Ondansetron 4 Mg Tab.Dis) 4 mg PO Q4H PRN PRN Reason: nausea, able to take PO Ondansetron HCl (Ondansetron 4 Mg/2 Ml Sdv) 4 mg IV Q6H PRN PRN Reason: Nausea/Vomiting Pantoprazole Sodium (Pantoprazole 40 Mg Tab.Cr) 40 mg PO DAILY [facility] Last Admin: 07/22/21 08:36 Dose: 40 mg Documented by: Potassium Chloride (Potassium Chloride 10 Meq Tab.Er) 10 meq PO DAILY [facility] Last Admin: 07/22/21 08:36 Dose: 10 meq Documented by: Sodium Chloride (Sodium Chloride 0.9% 10 Ml Syringe) 10 ml FLUSH ASDIRECTED PRN PRN Reason: Keep Vein Open Last Admin: 07/19/21 14:53 Dose: 10 ml Documented by: Temazepam (Temazepam 15 Mg Cap) 15 mg PO BEDTIME PRN PRN Reason: Sleep Discontinued Medications Dexamethasone (Dexamethasone 4 Mg/Ml Sdv) 6 mg IVPUSH ONETIME ONE Stop: 07/19/21 16:52 Last Admin: 07/19/21 17:39 Dose: 6 mg Documented by: Diphenhydramine HCl (Diphenhydramine 50 Mg/Ml Sdv) 50 mg IVPUSH ONETIME PRN PRN Reason: hypersensitivity reaction Epinephrine HCl (Epinephrine 1 Mg/Ml Sdv) 0.3 mg IM ONETIME PRN PRN Reason: hypersensitivity reaction Famotidine (Famotidine 20 Mg/2 Ml Sdv) 20 mg IVPUSH ONETIME PRN PRN Reason: hypersensitivity reaction Sodium Chloride (Normal Saline) 1,000 mls @ 1,000 mls/hr IV .BOLUS PAULINO Last Admin: 07/19/21 14:44 Dose: 1,000 mls/hr Documented by: CASIRIVIMAB/IMDEVIMAB 10 ml/ (Sodium Chloride) 110 mls @ 220 mls/hr IV ONETIME ONE Stop: 07/19/21 16:40 Last Admin: 07/19/21 17:34 Dose: Not Given Documented by: Remdesivir 200 mg/ Sodium (Chloride) 250 mls @ 250 mls/hr IV ONETIME ONE Stop: 07/19/21 16:55 Last Admin: 07/19/21 17:38 Dose: 250 mls/hr Documented by: Magnesium Sulfate 2 gm/ Premix 50 mls @ 25 mls/hr IV ONETIME ONE Stop: 07/22/21 09:54 Last Admin: 07/22/21 08:37 Dose: 25 mls/hr Documented by: Influenza Virus Vaccine (Flu Vacc [id number] 36mos Up/Pf 60 Mcg/0.5 Ml Syringe) 60 mcg IM .ONCE ONE Stop: 07/21/21 13:01 Methylprednisolone Sodium Succinate (Methylprednisolone Sodium Succinate 125 Mg/2 Ml Sdv) 125 mg IVPUSH ONETIME PRN PRN Reason: hypersensitivity reaction Morphine Sulfate (Morphine 2 Mg/Ml Syringe) 2 mg IVPUSH Q2H PRN PRN Reason: Pain (severe 7-10) Stop: 07/20/21 17:28 Ondansetron HCl (Ondansetron 4 Mg/2 Ml Sdv) 4 mg IVPUSH ONETIME ONE Stop: 07/19/21 14:11 Last Admin: 07/19/21 14:44 Dose: 4 mg Documented by: Oxycodone HCl (Oxycodone 5 Mg Tab) 5 mg PO Q4H PRN PRN Reason: Pain (moderate 4-6) Sodium Chloride (Sodium Chloride 0.9% 10 Ml Syringe) 30 ml FLUSH ASDIRECTED PAULINO - Exam Quality Assessment: Supplemental Oxygen (2L), DVT Prophylaxis. No: Urine Catheter General: Alert, Oriented, Cooperative, No Acute Distress HEENT: Pupils Equal, Pupils Reactive, Mucous Membr. Moist/[place] Neck: Supple, Trachea Midline Lungs: Normal Respiratory Effort, Decreased Breath Sounds, Crackles. No: Rhonchi, Wheezing Cardiovascular: Regular Rate, Regular Rhythm GI/Abdominal Exam: Normal Bowel Sounds, Soft, Non-Tender (Male) Exam: Deferred Back Exam: Normal Inspection, Full Range of Motion Extremities: Normal Inspection, Normal Range of Motion, Non-Tender, No Pedal Edema, Normal Capillary Refill Peripheral Pulses: 2+: Radial (L), Radial (R), Dorsalis Pedis (L), Dorsalis Pedis (R) Skin: Warm, Dry, Intact Neurological: No New Focal Deficit Psy/Mental Status: Alert, Normal Affect, Normal Mood - Patient Data Lab Results Last 24 hrs: Laboratory Results - last 24 hr 07/22/21 07/22/21 07/22/21 Range/Units 06:31 06:31 06:31 WBC 12.15 H (4.23-9.07) K/mm3 RBC 3.87 L (4.63-6.08) M/mm3 Hgb 13.1 L (13.7-17.5) gm/dl Hct 39.3 L (40.1-51.0) % MCV 101.6 H (79.0-92.2) fl MCH 33.9 H (25.7-32.2) pg MCHC 33.3 (32.2-35.5) g/dl RDW Std Deviation 51.3 H (35.1-43.9) fL Plt Count 200 (163-337) K/mm3 MPV 11.2 (9.4-12.3) fl Neut % (Auto) 87.0 H (34.0-67.9) % Lymph % (Auto) 5.1 L (21.8-53.1) % [place] % (Auto) 7.2 (5.3-12.2) % Eos % (Auto) 0 L (0.8-7.0) Baso % (Auto) 0.2 (0.1-1.2) % Neut # (Auto) 10.58 H (1.78-5.38) K/mm3 Lymph # (Auto) 0.62 L (1.32-3.57) K/mm3 [place] # (Auto) 0.87 H (0.30-0.82) K/mm3 Eos # (Auto) 0.00 L (0.04-0.54) K/mm3 Baso # (Auto) 0.02 (0.01-0.08) K/mm3 D-Dimer, Quantitative 1.00 H (0.19-0.50) mg/L Sodium 139 (136-145) mEq/L Potassium 4.1 (3.5-5.1) mEq/L Chloride 106 (98-107) mEq/L Carbon Dioxide 27 (21-32) mEq/L Anion Gap 10.1 (5-15) BUN 24 H (7-18) mg/dL Creatinine 0.8 (0.7-1.3) mg/dL Est Cr Clr Drug Dosing 120.66 mL/min Estimated GFR (MDRD) > 60 (>60) mL/min BUN/Creatinine Ratio 30.0 H (14-18) Glucose 142 H (70-99) mg/dL Calcium 8.2 L (8.5-10.1) mg/dL Magnesium 1.7 L (1.8-2.4) mg/dL Total Bilirubin 1.0 (0.2-1.0) mg/dL AST 84 H (15-37) U/L ALT 57 (16-63) U/L Alkaline Phosphatase 180 H (46-116) U/L C-Reactive Protein 3.7 H* (<1.0) mg/dL Total Protein 5.5 L (6.4-8.2) g/dl Albumin 2.3 L (3.4-5.0) g/dl Globulin 3.2 gm/dL Albumin/Globulin Ratio 0.7 L (1-2) 07/23/21 Range/Units 04:38 WBC 11.71 H (4.23-9.07) K/mm3 RBC 3.90 L (4.63-6.08) M/mm3 Hgb 13.3 L (13.7-17.5) gm/dl Hct 39.1 L (40.1-51.0) % MCV 100.3 H (79.0-92.2) fl MCH 34.1 H (25.7-32.2) pg MCHC 34.0 (32.2-35.5) g/dl RDW Std Deviation 49.0 H (35.1-43.9) fL Plt Count 211 (163-337) K/mm3 MPV 11.2 (9.4-12.3) fl Neut % (Auto) 83.8 H (34.0-67.9) % Lymph % (Auto) 6.0 L (21.8-53.1) % [place] % (Auto) 9.6 (5.3-12.2) % Eos % (Auto) 0 L (0.8-7.0) Baso % (Auto) 0.1 (0.1-1.2) % Neut # (Auto) 9.82 H (1.78-5.38) K/mm3 Lymph # (Auto) 0.70 L (1.32-3.57) K/mm3 [place] # (Auto) 1.12 H (0.30-0.82) K/mm3 Eos # (Auto) 0.00 L (0.04-0.54) K/mm3 Baso # (Auto) 0.01 (0.01-0.08) K/mm3 D-Dimer, Quantitative (0.19-0.50) mg/L Sodium (136-145) mEq/L Potassium (3.5-5.1) mEq/L Chloride (98-107) mEq/L Carbon Dioxide (21-32) mEq/L Anion Gap (5-15) BUN (7-18) mg/dL Creatinine (0.7-1.3) mg/dL Est Cr Clr Drug Dosing mL/min Estimated GFR (MDRD) (>60) mL/min BUN/Creatinine Ratio (14-18) Glucose (70-99) mg/dL Calcium (8.5-10.1) mg/dL Magnesium (1.8-2.4) mg/dL Total Bilirubin (0.2-1.0) mg/dL AST (15-37) U/L ALT (16-63) U/L Alkaline Phosphatase (46-116) U/L C-Reactive Protein (<1.0) mg/dL Total Protein (6.4-8.2) g/dl Albumin (3.4-5.0) g/dl Globulin gm/dL Albumin/Globulin Ratio (1-2) Result Diagrams: 07/23/21 04:38 07/23/21 04:38 Sepsis Event Note - Evaluation Sepsis Screening Result: No Definite Risk - Focused Exam Vital Signs: Vital Signs Temp Pulse Resp BP Pulse Ox Pulse Ox 07/23/21 05:41 98.1 F 59 L 18 134/74 92 L 07/22/21 21:35 97.9 F 75 18 117/67 92 L 07/22/21 21:00 92 L 07/22/21 20:49 94 L - Problem List & Annotations (1) Acute and chronic respiratory failure SNOMED Code(s): 98825222 Code(s): J96.20 - ACUTE AND CHR RESP FAILURE, UNSP W HYPOXIA OR HYPERCAPNIA Status: Acute Priority: High Current Visit: Yes Qualifiers: Respiratory failure complication: hypoxia Qualified Code(s): J96.21 - Acute and chronic respiratory failure with hypoxia (2) COVID SNOMED Code(s): 300785225 Code(s): U07.1 - COVID-19 Status: Acute Priority: High Current Visit: Yes (3) Hypoxia SNOMED Code(s): 092693417 Code(s): R09.02 - HYPOXEMIA Status: Acute Priority: High Current Visit: Yes (4) Pneumonia due to 2019 novel coronavirus SNOMED Code(s): 025059614498693531 Code(s): U07.1 - COVID-19; J12.82 - PNEUMONIA DUE TO CORONAVIRUS DISEASE 2019 Status: Acute Priority: High Current Visit: Yes (5) COPD (chronic obstructive pulmonary disease) SNOMED Code(s): 39458126 Code(s): J44.9 - CHRONIC OBSTRUCTIVE PULMONARY DISEASE, UNSPECIFIED Status: Chronic Priority: Medium Current Visit: Yes Qualifiers: COPD type: emphysema Emphysema type: unspecified Qualified Code(s): J43.9 - Emphysema, unspecified (6) Coronary artery disease SNOMED Code(s): 18204494 Code(s): I25.10 - ATHSCL HEART DISEASE OF [place] CORONARY ARTERY W/O ANG PCTRS Status: Chronic Priority: Medium Current Visit: Yes Qualifiers: Coronary Disease-Associated Artery/Lesion type: [place] artery [place] vs. transplanted heart: [place] heart Associated angina: without angina Qualified Code(s): I25.10 - Atherosclerotic heart disease of [place] coronary artery without angina pectoris (7) Hypertension SNOMED Code(s): 92166779 Code(s): I10 - ESSENTIAL (PRIMARY) HYPERTENSION Status: Chronic Priority: Medium Current Visit: Yes Qualifiers: Hypertension type: primary hypertension Qualified Code(s): I10 - Essential (primary) hypertension (8) Hypomagnesemia SNOMED Code(s): 541269763 Code(s): E83.42 - HYPOMAGNESEMIA Status: Acute Priority: High Current Visit: Yes (9) Dependence on nocturnal oxygen therapy SNOMED Code(s): 47956883131235 Code(s): Z99.81 - DEPENDENCE ON SUPPLEMENTAL OXYGEN Status: Chronic Priority: Low Current Visit: Yes - Problem List Review Problem List Initiated/Reviewed/Updated: Yes - My Orders Last 24 Hours: My Active Orders 07/22/21 09:00 guaiFENesin [Mucinex] 600 mg PO BID 07/23/21 04:38 C-REACTIVE PROTEIN [CHEM] AM CBC WITH AUTO DIFF [HEME] AM COMPREHENSIVE METABOLIC PN,CMP [CHEM] AM MAGNESIUM [CHEM] AM 07/24/21 05:11 C-REACTIVE PROTEIN [CHEM] AM CBC WITH AUTO DIFF [HEME] AM COMPREHENSIVE METABOLIC PN,CMP [CHEM] AM D-DIMER QUANTITATIVE [COAG] Q48H MAGNESIUM [CHEM] AM 07/26/21 05:11 D-DIMER QUANTITATIVE [COAG] Q48H - Plan Plan:: 07/19/2021 The patient is a 61-year-old gentleman who had presented to his clinic initially and was transferred to the emergency department and was admitted to acute hospitalization. The patient was noted to be hypoxic and he does have a history of COPD. The patient will be started on remdesivir. The patient's remdesivir will be started tomorrow at 100 mg IV on a daily basis. The patient will also be placed on steroids dexamethasone at 6 mg p.o. daily. The patient will have a regular health healthy diet as tolerated. He will have DVT prophylaxis with the use of Lovenox 40 mg subcutaneous on a daily basis. The patient will have oxygen support to keep his oxygen saturations around 92%. The patient will also be kept on telemetry. He will have vital signs monitored and his antihypertensive medications will be adjusted as necessary. I have elected to place the patient on the home dose of Celexa 20 mg p.o. daily. Repeat laboratory studies have been ordered for the morning. The patient has been encouraged to ambulate. The patient should be appropriate for discharge if significant improvement and he is finished 5 doses of the remdesivir. 07/20/2021 61-year-old male admitted to the floor for COVID-19 pneumonia treatment. He currently is on 2.5 L with saturations in the low 90s. Labs obtained today show WBC of 4.15. Hemoglobin 13.6. Platelet 143,000. Neutrophils are elevated at 84.6%. D-dimer is 1.07. Sodium 141. Potassium 4.8. Chloride 108. Carbon dioxide 24. Anion gap 13.8. BUN is 25. Creatinine 0.9. GFR greater than 60. Glucose is 166. Calcium 8.1. Magnesium 2.0. Total bilirubin is down to 0.9. AST 76. ALT 41, alkaline phosphatase is 218. CRP is down to 13.6. Albumin is down to 2.3. Home aspirin has been resumed and he was reporting a sore throat for which Cepacol lozenges have been ordered. He is on day 2 of dexamethasone and remdesivir. Procalcitonin vitamin D have been ordered and are pending. Otherwise he reports he feels "pretty good" but states he is still quite weak. He will remain hospita lized for COVID-19 pneumonia treatment. We did discuss proning and I-S/Acapella have been ordered. Oxygen goal has been decreased to 88 to 95%. He will remain hospitalized pending improvement in oxygen demand. 07/21/2021 This is a 61-year-old male admitted to the floor for treatment of COVID-19 pneumonia. Today he reports he feels better but still is weak and does have a cough. He is on 2 L. WBC today was up to 12.54, likely secondary to steroids but we will monitor this. Hemoglobin is 12.9. Platelet 186,000. Neutrophils are 87.8. Sodium is 141. Potassium 4.3. Chloride 109. Carbon dioxide 24. Anion gap is 12.3. BUN is 25. Creatinine 0.9. GFR greater than 60. Glucose is 145. Calcium 8.3. Magnesium is 1.8. Bilirubin 0.8. AST 75, ALT 46, alkaline phosphatase 190. CRP is 6.6. Total protein is 5.6. Albumin is 2.3. Vitamin D obtained yesterday was 85.5 and procalcitonin was 0.09. We will continue treatment for COVID-19 pneumonia with remdesivir and dexamethasone. Today is day 2 of dexamethasone and remdesivir likely discharge in 2 to 3 days pending continued improvement. 07/22/2021 This is a 61-year-old male admitted to the floor for COVID-19 pneumonia treatment. He remains on 2 L with saturations in the low 90s. Labs today show a WBC of 12.15. Hemoglobin is 13.1. Platelet 200,000. Neutrophils are elevate d 87%. D-dimer is down to 1.00. Sodium 139. Potassium 4.1. Chloride 106. Carbon oxide 27. Anion gap is 10.1. BUN is 24. Creatinine 0.8. GFR greater than 60. Glucose is 142. Calcium 8.2. Magnesium is low at 1.7 and this will be supplemented with 2 g. Total bilirubin 1.0. AST is 84, ALT 57, alkaline phosphatase 180. CRP is down to 3.7. Protein is 5.5. Albumin is 2.3. He reports some mucus and a productive cough so we will start Mucinex twice daily he continues to receive remdesivir and dexamethasone. He has been utilizing his incentive spirometer and Acapella. We did discuss proning again. He states he is walking around the room without difficulty. Overall he is doing okay. Plan will be to discharge once off of oxygen or 5 days of treatment are completed. Length of stay greater than 96 hours due to continued need for COVID-19 pneumonia treatment. 07/23/2021 This is a 61-year-old male admitted to the floor for treatment of his COVID-19 pneumonia. He continues to receive dexamethasone and remdesivir. His last dose of remdesivir will be this evening at 1830. He remains on Lovenox 40 mg daily for DVT prophylaxis. He is also on twice daily 81 mg aspirin as a home med. Patient was decreased to 1/2 L of oxygen with saturations in the low 90s. He has been proning and utilizing his incentive spirometer and Acapella. Patient does note that he is on nocturnal oxygen at home at baseline. He had been on 2 L but was increased up to 3 L prior to coming in. He does report having a home oxygen concentrator already. Labs today show WBC of 11.71. Hemoglobin 13.3. Platelet 211,000. Neutrophils are elevated at 83.8. Sodium is 142. Potassium 4.1. Chloride 109. Carbon dioxide 23. Anion gap 14.2. BUN is 22. Creatinine 0.8. GFR greater than 60. Glucose is 163. Calcium 8.2. Magnesium is 2.0. Total bilirubin 1.1. AST is 92, ALT 80. Alkaline phosphatase 184. CRP is down to 2.5. Protein is 5.5. Albumin 2.3. Plan will be to discharge patient tomorrow after completion of treatment.
[2021-07-23] MEDS: Enoxaparin 40 MG/0.4 ML Syringe SUBCUT SCH (08:32)
[2021-07-23] MEDS: Citalopram 20 MG Tab PO SCH (08:33)
[2021-07-23] MEDS: Aspirin 81 MG Tab.EC PO SCH ×2 (08:33→21:17)
[2021-07-23] MEDS: Dexamethasone 4 MG Tab PO SCH (08:33)
[2021-07-23] MEDS: Pantoprazole 40 MG Tab.CR PO SCH (08:33)
[2021-07-23] MEDS: guaiFENesin 600 MG Tab.ER PO SCH ×2 (08:33→21:17)
[2021-07-23] MEDS: Potassium Chloride 10 MEQ Tab.ER PO SCH (08:33)
[2021-07-23] MEDS: Lisinopril 10 MG Tab PO SCH (08:33)
[2021-07-23] MEDS: Albuterol/Ipratropium 3.0-0.5 MG/3 ML Neb Soln NEB PRN ×2 (09:25→15:13)
[2021-07-23] MEDS: REMDESIVIR 100 MG in Sodium Chloride 0.9% 100 ML IV SCH (16:44)
[2021-07-24] MEDS: Benzocaine/Cetylpyridinium/Menthol Lozenge MUCMEM PRN ×2 (00:28→03:53)
[2021-07-24] MEDS: Dexamethasone 4 MG Tab PO SCH (08:41)
[2021-07-24] MEDS: Potassium Chloride 10 MEQ Tab.ER PO SCH (08:41)
[2021-07-24] MEDS: Lisinopril 10 MG Tab PO SCH (08:41)
[2021-07-24] MEDS: Enoxaparin 40 MG/0.4 ML Syringe SUBCUT SCH (08:41)
[2021-07-24] MEDS: guaiFENesin 600 MG Tab.ER PO SCH (08:41)
[2021-07-24] MEDS: Citalopram 20 MG Tab PO SCH (08:41)
[2021-07-24] MEDS: Pantoprazole 40 MG Tab.CR PO SCH (08:41)
[2021-07-24] MEDS: Aspirin 81 MG Tab.EC PO SCH (08:41)
--- NOTE | 2021-07-24 09:07 | PCM.DCSUM1 ---
Discharge Summary - Hospital Course HPI Initial Comments: The patient is a 61-year-old gentleman who was sent to the emergency department from [facility] for positive COVID-19. The patient had been exposed to sick contact over a week ago who had COVID-19. The patient started having symptoms approximately 10 days ago consisting of cough, shortness of breath weakness fever with some nausea vomiting and diarrhea. The patient says that some of the symptoms have resolved but he is still been having weakness and chills and some diarrhea. Patient does have a history of COPD and myocardial infarction with bypass surgery. The patient had been offered Regeneron but had refused. The patient says that he quit smoking years ago. He has had no specific aggravating or relieving factors. The patient has been taking medication for hypertension and GERD as well as [id number] allergy medications. 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 Assessment/Plan Comment:: The patient is a 61-year-old gentleman who had presented to his clinic initially and was transferred to the emergency department and was admitted to acute hospitalization. The patient was noted to be hypoxic and he does have a history of COPD. The patient will be started on remdesivir. The patient's remdesivir will be started tomorrow at 100 mg IV on a daily basis. The patient will also be placed on steroids dexamethasone at 6 mg p.o. daily. The patient will have a regular health healthy diet as tolerated. He will have DVT prophylaxis with the use of Lovenox 40 mg subcutaneous on a daily basis. The patient will have oxygen support to keep his oxygen saturations around 92%. The patient will also be kept on telemetry. He will have vital signs monitored and his antihypertensive medications will be adjusted as necessary. I have elected to place the patient on the home dose of Celexa 20 mg p.o. daily. Repeat laboratory studies have been ordered for the morning. The patient has been encouraged to ambulate. The patient should be appropriate for discharge if significant improvement and he is finished 5 doses of the remdesivir. Diagnosis: Stroke: No - Discharge Data Discharge Date: 07/24/21 Discharge Disposition: Home, Self-Care 01 Condition: Good - Referral to Home Health Primary Care Physician: Kianna Macario MD - Patient Summary/Data Consults: Consultations 07/20/21 07:48 Consult to Respiratory Therapy [Respiratory Care Assess and Treatment] [CONS] Routine Hospital Course: 07/19/2021 The patient is a 61-year-old gentleman who had presented to his clinic initially and was transferred to the emergency department and was admitted to acute hospitalization. The patient was noted to be hypoxic and he does have a history of COPD. The patient will be started on remdesivir. The patient's remdesivir will be started tomorrow at 100 mg IV on a daily basis. The patient will also be placed on steroids dexamethasone at 6 mg p.o. daily. The patient will have a regular health healthy diet as tolerated. He will have DVT prophylaxis with the use of Lovenox 40 mg subcutaneous on a daily basis. The patient will have oxygen support to keep his oxygen saturations around 92%. The patient will also be kept on telemetry. He will have vital signs monitored and his antihypertensive medications will be adjusted as necessary. I have elected to place the patient on the home dose of Celexa 20 mg p.o. daily. Repeat laboratory studies have been ordered for the morning. The patient has been encouraged to ambulate. The patient should be appropriate for discharge if significant improvement and he is finished 5 doses of the remdesivir. 07/20/2021 61-year-old male admitted to the floor for COVID-19 pneumonia treatment. He currently is on 2.5 L with saturations in the low 90s. Labs obtained today show WBC of 4.15. Hemoglobin 13.6. Platelet 143,000. Neutrophils are elevated at 84.6%. D-dimer is 1.07. Sodium 141. Potassium 4.8. Chloride 108. Carbon dioxide 24. Anion gap 13.8. BUN is 25. Creatinine 0.9. GFR greater than 60. Glucose is 166. Calcium 8.1. Magnesium 2.0. Total bilirubin is down to 0.9. AST 76. ALT 41, alkaline phosphatase is 218. CRP is down to 13.6. Albumin is down to 2.3. Home aspirin has been resumed and he was reporting a sore throat for which Cepacol lozenges have been ordered. He is on day 2 of dexamethasone and remdesivir. Procalcitonin vitamin D have been ordered and are pending. Otherwise he reports he feels "pretty good" but states he is still quite weak. He will remain hospitalized for COVID-19 pneumonia treatment. We did discuss proning and I- S/Acapella have been ordered. Oxygen goal has been decreased to 88 to 95%. He will remain hospitalized pending improvement in oxygen demand. 07/21/2021 This is a 61-year-old male admitted to the floor for treatment of COVID-19 pneumonia. Today he reports he feels better but still is weak and does have a cough. He is on 2 L. WBC today was up to 12.54, likely secondary to steroids but we will monitor this. Hemoglobin is 12.9. Platelet 186,000. Neutrophils are 87.8. Sodium is 141. Potassium 4.3. Chloride 109. Carbon dioxide 24. Anion gap is 12.3. BUN is 25. Creatinine 0.9. GFR greater than 60. Glucose is 145. Calcium 8.3. Magnesium is 1.8. Bilirubin 0.8. AST 75, ALT 46, alkaline phosphatase 190. CRP is 6.6. Total protein is 5.6. Albumin is 2.3. Vitamin D obtained yesterday was 85.5 and procalcitonin was 0.09. We will continue treatment for COVID-19 pneumonia with remdesivir and dexamethasone. Today is day 2 of dexamethasone and remdesivir likely discharge in 2 to 3 days pending continued improvement. 07/22/2021 This is a 61-year-old male admitted to the floor for COVID-19 pneumonia treatment. He remains on 2 L with saturations in the low 90s. Labs today show a WBC of 12.15. Hemoglobin is 13.1. Platelet 200,000. Neutrophils are elevated 87%. D-dimer is down to 1.00. Sodium 139. Potassium 4.1. Chloride 106. Carbon oxide 27. Anion gap is 10.1. BUN is 24. Creatinine 0.8. GFR greater than 60. Glucose is 142. Calcium 8.2. Magnesium is low at 1.7 and this will be supplemented with 2 g. Total bilirubin 1.0. AST is 84, ALT 57, alkaline phosphatase 180. CRP is down to 3.7. Protein is 5.5. Albumin is 2.3. He reports some mucus and a productive cough so we will start Mucinex twice daily he continues to receive remdesivir and dexamethasone. He has been utilizing his incentive spirometer and Acapella. We did discuss proning again. He states he is walking around the room without difficulty. Overall he is doing okay. Plan will be to discharge once off of oxygen or 5 days of treatment are completed. Length of stay greater than 96 hours due to continued need for COVID-19 pneum onia treatment. 07/23/2021 This is a 61-year-old male admitted to the floor for treatment of his COVID-19 pneumonia. He continues to receive dexamethasone and remdesivir. His last dose of remdesivir will be this evening at 1830. He remains on Lovenox 40 mg daily for DVT prophylaxis. He is also on twice daily 81 mg aspirin as a home med. Patient was decreased to 1/2 L of oxygen with saturations in the low 90s. He has been proning and utilizing his incentive spirometer and Acapella. Patient does note that he is on nocturnal oxygen at home at baseline. He had been on 2 L but was increased up to 3 L prior to coming in. He does report having a home oxygen concentrator already. Labs today show WBC of 11.71. Hemoglobin 13.3. Platelet 211,000. Neutrophils are elevated at 83.8. Sodium is 142. Potassium 4.1. Chloride 109. Carbon dioxide 23. Anion gap 14.2. BUN is 22. Creatinine 0.8. GFR greater than 60. Glucose is 163. Calcium 8.2. Magnesium is 2.0. Total bilirubin 1.1. AST is 92, ALT 80. Alkaline phosphatase 184. CRP is down to 2.5. Protein is 5.5. Albumin 2.3. Plan will be to discharge patient tomorrow after completion of treatment. 07/24/2021 Patient received his last dose of remdesivir last night. He states he is feeling better. His D-dimer did go up to 2.75, but it does not appear to be clinically significant since he continues off of oxygen while awake. He states he does use approximately 2-1/2 L when sleeping. Otherwise, lab work today is not significantly different from yesterday and he is ready for discharge. - Patient Instructions Diet: Usual Diet as Tolerated Activity: As Tolerated Driving: May Drive Today Showering/Bathing: May Shower Other/Special Instructions: Follow-up with your primary care provider next week. If you develop worsening shortness of breath, cough, fever, or abdominal pain return to the emergency department. - Discharge Plan *PRESCRIPTION DRUG MONITORING PROGRAM REVIEWED*: No *COPY OF PRESCRIPTION DRUG MONITORING REPORT IN PATIENT MARITZA: No Home Medications: Home Meds Aspirin [[place]] 81 mg PO BID 07/19/21 [History] Escitalopram [Lexapro] 10 mg PO DAILY 07/19/21 [History] Loratadine 10 mg PO DAILY PRN 07/19/21 [History] Pantoprazole [ProTONIX] 40 mg PO DAILY 07/19/21 [History] Potassium Chloride 10 meq PO DAILY 07/19/21 [History] Ubidecarenone [Co Q-10] 1 tab PO DAILY 07/19/21 [History] hydrOXYzine HCL [hydrOXYzine] 25 mg PO BEDTIME PRN 07/19/21 [History] lisinopriL [Lisinopril] 10 mg PO DAILY 07/19/21 [History] Oxygen Therapy Mode: Nasal Cannula (at night) Oxygen Flow Rate (L/min): 2.5 Patient Handouts: COVID-19 Frequently Asked Questions, COVID-19, 10 Things You Can Do to Manage Your COVID-19 Symptoms at Home - [facility] (05/07/2021), Home Oxygen Use, Adult, Sepsis, Self Care, Adult Forms: ED Department Discharge Referrals: Kianna Macario MD [Primary Care Provider] - 08/02/21 10:00 am (you will be seeing Renetta MCKENZIE for you appointment. at the [facility].) - Discharge Summary/Plan Comment DC Time >30 min.: No Total # of Minutes for Discharge Time: 25 - General Info Date of Service: 07/24/21 Admission Dx/Problem (Free Text: Admission Diagnosis/Problem Admission Diagnosis/Problem Pneumonia Subjective Update: Patient is on room air. No complaints of significant cough or shortness of breath. He does use oxygen at night at home. He has a home concentrator. Functional Status: Reports: Pain Controlled - Review of Systems General: Reports: No Symptoms HEENT: Reports: No Symptoms Pulmonary: Reports: No Symptoms Cardiovascular: Reports: No Symptoms Gastrointestinal: Reports: Diarrhea Genitourinary: Reports: No Symptoms Musculoskeletal: Reports: No Symptoms - Patient Data Vitals - Most Recent: Last Vital Signs Temp 98.1 F 07/24/21 03:57 Pulse 65 07/24/21 03:57 Resp 20 07/24/21 03:57 BP 128/61 07/24/21 08:41 Pulse Ox 90 L 07/24/21 03:57 Weight - Most Recent: 203 lb I&O - Last 24 hours: Intake & Output 07/23/21 07/24/21 07/24/21 22:59 06:59 14:59 Intake Total 1690 1200 Balance 1690 1200 Lab Results - Last 24 hrs: Laboratory Results - last 24 hr 07/24/21 07/24/21 07/24/21 Range/Units 05:23 05:23 05:23 WBC 11.49 H (4.23-9.07) K/mm3 RBC 4.04 L (4.63-6.08) M/mm3 Hgb 13.5 L (13.7-17.5) gm/dl Hct 40.3 (40.1-51.0) % MCV 99.8 H (79.0-92.2) fl MCH 33.4 H (25.7-32.2) pg MCHC 33.5 (32.2-35.5) g/dl RDW Std Deviation 49.3 H (35.1-43.9) fL Plt Count 232 (163-337) K/mm3 MPV 11.2 (9.4-12.3) fl Neut % (Auto) 85.4 H (34.0-67.9) % Lymph % (Auto) 4.8 L (21.8-53.1) % [place] % (Auto) 9.0 (5.3-12.2) % Eos % (Auto) 0 L (0.8-7.0) Baso % (Auto) 0.2 (0.1-1.2) % Neut # (Auto) 9.82 H (1.78-5.38) K/mm3 Lymph # (Auto) 0.55 L (1.32-3.57) K/mm3 [place] # (Auto) 1.03 H (0.30-0.82) K/mm3 Eos # (Auto) 0.00 L (0.04-0.54) K/mm3 Baso # (Auto) 0.02 (0.01-0.08) K/mm3 Manual Slide Review Abnormal smear D-Dimer, Quantitative 2.75 H (0.19-0.50) mg/L Sodium 140 (136-145) mEq/L Potassium 4.5 (3.5-5.1) mEq/L Chloride 107 (98-107) mEq/L Carbon Dioxide 25 (21-32) mEq/L Anion Gap 12.5 (5-15) BUN 24 H (7-18) mg/dL Creatinine 0.8 (0.7-1.3) mg/dL Est Cr Clr Drug Dosing 120.66 mL/min Estimated GFR (MDRD) > 60 (>60) mL/min BUN/Creatinine Ratio 30.0 H (14-18) Glucose 175 H (70-99) mg/dL Calcium 8.4 L (8.5-10.1) mg/dL Magnesium 1.9 (1.8-2.4) mg/dL Total Bilirubin 1.2 H (0.2-1.0) mg/dL AST 73 H (15-37) U/L ALT 88 H (16-63) U/L Alkaline Phosphatase 177 H (46-116) U/L C-Reactive Protein 1.7 H* (<1.0) mg/dL Total Protein 5.6 L (6.4-8.2) g/dl Albumin 2.3 L (3.4-5.0) g/dl Globulin 3.3 gm/dL Albumin/Globulin Ratio 0.7 L (1-2) Med Orders - Current: Current Medications Acetaminophen (Acetaminophen 325 Mg Tab) 650 mg PO Q4H PRN PRN Reason: Pain (Mild 1-3)/fever Albuterol (Albuterol 6.7 Gm Inhaler) 0 gm INH Q2H PRN PRN Reason: SOB/Wheezing Albuterol/Ipratropium (Albuterol/Ipratropium 3.0-0.5 Mg/3 Ml Neb Soln) 3 ml NEB Q4H PRN PRN Reason: Shortness Of Breath/wheezing Last Admin: 07/23/21 15:13 Dose: 3 ml Documented by: Aspirin (Aspirin 81 Mg Tab.Ec) 81 mg PO BID PAULINO Last Admin: 07/24/21 08:41 Dose: 81 mg Documented by: Benzocaine/Menthol (Benzocaine/Cetylpyridinium/Menthol Lozenge) 1 lozenge MUCMEM Q2H PRN PRN Reason: Sore Throat Last Admin: 07/24/21 03:53 Dose: 1 lozenge Documented by: Citalopram Hydrobromide (Citalopram 20 Mg Tab) 20 mg PO DAILY [facility] Last Admin: 07/24/21 08:41 Dose: 20 mg Documented by: Dexamethasone (Dexamethasone 4 Mg Tab) 6 mg PO DAILY [facility] Stop: 07/28/21 09:01 Last Admin: 07/24/21 08:41 Dose: 6 mg Documented by: Docusate Sodium (Docusate Sodium 100 Mg Cap) 100 mg PO BID PRN PRN Reason: Constipation Enoxaparin Sodium (Enoxaparin 40 Mg/0.4 Ml Syringe) 40 mg SUBCUT DAILY [facility] Last Admin: 07/24/21 08:41 Dose: 40 mg Documented by: Guaifenesin (Guaifenesin 600 Mg Tab.Er) 600 mg PO BID [facility] Last Admin: 07/24/21 08:41 Dose: 600 mg Documented by: Hydroxyzine HCl (Hydroxyzine Hcl 25 Mg Tab) 25 mg PO BEDTIME PRN PRN Reason: Itching Lisinopril (Lisinopril 10 Mg Tab) 10 mg PO DAILY [facility] Last Admin: 07/24/21 08:41 Dose: 10 mg Documented by: Ondansetron HCl (Ondansetron 4 Mg Tab.Dis) 4 mg PO Q4H PRN PRN Reason: nausea, able to take PO Ondansetron HCl (Ondansetron 4 Mg/2 Ml Sdv) 4 mg IV Q6H PRN PRN Reason: Nausea/Vomiting Pantoprazole Sodium (Pantoprazole 40 Mg Tab.Cr) 40 mg PO DAILY [facility] Last Admin: 07/24/21 08:41 Dose: 40 mg Documented by: Potassium Chloride (Potassium Chloride 10 Meq Tab.Er) 10 meq PO DAILY [facility] Last Admin: 07/24/21 08:41 Dose: 10 meq Documented by: Sodium Chloride (Sodium Chloride 0.9% 10 Ml Syringe) 10 ml FLUSH ASDIRECTED PRN PRN Reason: Keep Vein Open Last Admin: 07/19/21 14:53 Dose: 10 ml Documented by: Temazepam (Temazepam 15 Mg Cap) 15 mg PO BEDTIME PRN PRN Reason: Sleep Discontinued Medications Dexamethasone (Dexamethasone 4 Mg/Ml Sdv) 6 mg IVPUSH ONETIME ONE Stop: 07/19/21 16:52 Last Admin: 07/19/21 17:39 Dose: 6 mg Documented by: Diphenhydramine HCl (Diphenhydramine 50 Mg/Ml Sdv) 50 mg IVPUSH ONETIME PRN PRN Reason: hypersensitivity reaction Epinephrine HCl (Epinephrine 1 Mg/Ml Sdv) 0.3 mg IM ONETIME PRN PRN Reason: hypersensitivity reaction Famotidine (Famotidine 20 Mg/2 Ml Sdv) 20 mg IVPUSH ONETIME PRN PRN Reason: hypersensitivity reaction Sodium Chloride (Normal Saline) 1,000 mls @ 1,000 mls/hr IV .BOLUS PAULINO Last Admin: 07/19/21 14:44 Dose: 1,000 mls/hr Documented by: CASIRIVIMAB/IMDEVIMAB 10 ml/ (Sodium Chloride) 110 mls @ 220 mls/hr IV ONETIME ONE Stop: 07/19/21 16:40 Last Admin: 07/19/21 17:34 Dose: Not Given Documented by: Remdesivir 200 mg/ Sodium (Chloride) 250 mls @ 250 mls/hr IV ONETIME ONE Stop: 07/19/21 16:55 Last Admin: 07/19/21 17:38 Dose: 250 mls/hr Documented by: Remdesivir 100 mg/ Sodium (Chloride) 100 mls @ 100 mls/hr IV Q24H PAULINO Stop: 07/23/21 18:29 Last Admin: 07/23/21 16:44 Dose: 100 mls/hr Documented by: Magnesium Sulfate 2 gm/ Premix 50 mls @ 25 mls/hr IV ONETIME ONE Stop: 07/22/21 09:54 Last Admin: 07/22/21 08:37 Dose: 25 mls/hr Documented by: Influenza Virus Vaccine (Flu Vacc [id number] 36mos Up/Pf 60 Mcg/0.5 Ml Syringe) 60 mcg IM .ONCE ONE Stop: 07/21/21 13:01 Methylprednisolone Sodium Succinate (Methylprednisolone Sodium Succinate 125 Mg/2 Ml Sdv) 125 mg IVPUSH ONETIME PRN PRN Reason: hypersensitivity reaction Morphine Sulfate (Morphine 2 Mg/Ml Syringe) 2 mg IVPUSH Q2H PRN PRN Reason: Pain (severe 7-10) Stop: 07/20/21 17:28 Ondansetron HCl (Ondansetron 4 Mg/2 Ml Sdv) 4 mg IVPUSH ONETIME ONE Stop: 07/19/21 14:11 Last Admin: 07/19/21 14:44 Dose: 4 mg Documented by: Oxycodone HCl (Oxycodone 5 Mg Tab) 5 mg PO Q4H PRN PRN Reason: Pain (moderate 4-6) Sodium Chloride (Sodium Chloride 0.9% 10 Ml Syringe) 30 ml FLUSH ASDIRECTED PAULINO - Exam Quality Assessment: Denies: Supplemental Oxygen General: Reports: Alert, Oriented HEENT: Reports: Pupils Equal, Mucous Membr. Moist/[place] Neck: Reports: Supple Lungs: Reports: Normal Respiratory Effort, Crackles (Scattered) Cardiovascular: Reports: Regular Rate, Regular Rhythm GI/Abdominal Exam: Normal Bowel Sounds, Soft, Non-Tender, No Mass Neurological: Reports: No New Focal Deficit Psy/Mental Status: Reports: Alert, Normal Affect, Normal Mood
[2021-07-24] MEDS: Albuterol/Ipratropium 3.0-0.5 MG/3 ML Neb Soln NEB PRN (09:41)
== END 2021-07-24 12:44 | disposition home or self-care (01) | DRG 137 ==
LOC: JD.ED 13:31 → JD.MS 17:28
PROVIDERS: ADMIT Internal Medicine; ATTEND Internal Medicine
PROC: XW033E5 Introduction of Remdesivir Anti-infective into Peripheral Vein, Percutaneous Approach, New Technology Group 5 (ICD-10-PCS; principal; 2021-07-19)
PROC: 3E0333Z Introduction of Anti-inflammatory into Peripheral Vein, Percutaneous Approach (ICD-10-PCS; 2021-07-19)
PROC: 3E0DX3Z Introduction of Anti-inflammatory into Mouth and Pharynx, External Approach (ICD-10-PCS; 2021-07-20)
PROC: 8E0ZXY6 Isolation (ICD-10-PCS; 2021-07-20)
DX: U07.1 COVID-19 (principal); J12.82 Pneumonia due to coronavirus disease 2019; J96.21 Acute and chronic respiratory failure with hypoxia; H54.7 Unspecified visual loss; K21.9 Gastro-esophageal reflux disease without esophagitis; F32.A Depression, unspecified; J43.9 Emphysema, unspecified; I25.10 Atherosclerotic heart disease of native coronary artery without angina pectoris; I10 Essential (primary) hypertension; E83.42 Hypomagnesemia; Z88.0 Allergy status to penicillin; Z79.899 Other long term (current) drug therapy; Z86.73 Personal history of transient ischemic attack (TIA), and cerebral infarction without residual deficits; Z90.49 Acquired absence of other specified parts of digestive tract; Z87.891 Personal history of nicotine dependence; I25.2 Old myocardial infarction; Z95.1 Presence of aortocoronary bypass graft; Z99.81 Dependence on supplemental oxygen
CPT/HCPCS: 36415; 71045; 71045-26; 80053; 82306; 83605; 83735; 84145; 85025; 85379; 85610; 85730; 86140; 94640; 94668; 94762; 99285-25; A9270-GY; J1100; J1650; J2405; J3475; J7030; J7050; J7620-GY; J8540

== ENCOUNTER 2024-06-13 12:34 | Emergency (ER) | payer MEDICARE, OTHER ==
[2024-06-13] MEDS ORDERED: Sodium Chloride 0.9% 10 ML Syringe FLUSH PRN (13:17)
[2024-06-13 13:51] LABS: BASOPHILS ABSOLUTE AUTO 0.1 K/mm3 (0.0-0.2); BASOPHILS PERCENT AUTO 1.3 % (0.0-1.0); EOSINOPHILS ABSOLUTE AUTO 0.3 K/mm3 (0.0-0.4); EOSINOPHILS PERCENT AUTO 4.1 % (0.0-6.0); HEMATOCRIT 34.7 % (42.0-52.0); HEMOGLOBIN 11.7 gm/dl (14.0-18.0); IMMATURE GRAN ABSOLUTE AUTO 0.02 K/mm3 (0.00-0.05); IMMATURE GRAN PERCENT AUTO 0.3 % (0.0-0.4); LYMPHOCYTES ABSOLUTE AUTO 0.9 K/mm3 (1.0-4.8); LYMPHOCYTES PERCENT AUTO 12.4 % (24.0-44.0); MEAN CORPUSCULAR HEMOGLOBIN 34.1 pg (28.0-32.0); MEAN CORPUSCULAR HGB CONC 33.7 g/dl (32.0-36.0); MEAN CORPUSCULAR VOLUME 101.2 fl (83.0-99.0); MEAN PLATELET VOLUME 9.3 fl (9.4-12.4); MONOCYTES ABSOLUTE AUTO 0.8 K/mm3 (0.0-0.8); MONOCYTES PERCENT AUTO 11.9 % (0.0-8.0); NEUTROPHILS ABSOLUTE AUTO 4.9 K/mm3 (1.8-7.7); PLATELET COUNT,PLT 176 K/mm3 (150-400); RED BLOOD CELL COUNT 3.43 M/mm3 (4.52-5.90); WHITE BLOOD CELL COUNT,WBC 7.03 K/mm3 (3.9-11.3)
[2024-06-13 14:09] LABS: INR 1.34; PROTHROMBIN TIME 13.9 SECONDS (9.7-12.0)
[2024-06-13 14:10] LABS: PTT,PARTIAL THROMBOPLSTIN TIME 29.1 SECONDS (21.7-31.4)
[2024-06-13 14:23] LABS: A/G RATIO 1.7 (1-2); ALBUMIN 3.5 g/dl (3.4-5.0); ANION GAP 11.3 (5-15); BILIRUBIN TOTAL 2.3 mg/dL (0.2-1.0); BUN/CREATININE RATIO 9.4 (14-18); CALCIUM 8.9 mg/dL (8.5-10.1); CREATININE 1.7 mg/dL (0.7-1.3); EST CRCL DRUG DOSING (CG) 46.14 mL/min; MAGNESIUM 1.9 mg/dL (1.8-2.4); POTASSIUM,K 4.3 mEq/L (3.5-5.1); PROTEIN TOTAL,TP 5.6 g/dl (6.4-8.2)
[2024-06-13 14:27] LABS: LACTIC ACID 1.6 mmol/L (0.4-2.0)
[2024-06-13] MEDS ORDERED: Iopamidol 755 Mg/ML 100 ML Bottle IVPUSH ONE (14:39)
[2024-06-13] MEDS ORDERED: Sodium Chloride 0.9% 100 ML IV SCH (14:45)
[2024-06-13] MEDS: Iopamidol 755 Mg/ML 100 ML Bottle IVPUSH ONE (14:54)
[2024-06-13] MEDS: Sodium Chloride 0.9% 100 ML IV SCH (15:01)
[2024-06-13] MEDS: Sodium Chloride 0.9% 10 ML Syringe FLUSH ONE (15:17)
[2024-06-13 17:52] LABS: CORONAVIRUS COVID-19 NAA NEGATIVE (NEGATIVE); INFLUENZA A NAA NEGATIVE (NEGATIVE); RESPIRATORY SYNCYTIAL VIR NAA NEGATIVE (NEGATIVE)
[2024-06-13] MEDS: Sodium Chloride 0.9% 250 ML IV ONE (18:11)
[2024-06-13 18:37] LABS: APPEARANCE,URINE CLEAR (Clear); BILIRUBIN,URINE NEGATIVE (Negative); COLOR,URINE YELLOW (Yellow); GLUCOSE,URINE NEGATIVE (Negative); KETONES,URINE NEGATIVE (Negative); LEUKOCYTE ESTERASE,URINE NEGATIVE (Negative); NITRITE,URINE NEGATIVE (Negative); OCCULT BLOOD,URINE 2+ (Negative); PH,URINE 5.5 (5.0-8.0); PROTEIN,URINE NEGATIVE (Negative); UROBILINOGEN,URINE 0.2 (0.2-1.0)
[2024-06-13 18:53] LABS: BACTERIA,URINE FEW /hpf (FEW); MUCUS,URINE FEW /hpf (FEW); SQUAMOUS EPITHELIAL CELLS,UR 0-5 /hpf (0-5); WBC,URINE 0-5 /hpf (0-5)
== END 2024-06-13 20:07 | disposition home or self-care (01) ==
LOC: JD.ED 12:34
DX: R79.89 Other specified abnormal findings of blood chemistry (principal); I10 Essential (primary) hypertension; K21.9 Gastro-esophageal reflux disease without esophagitis; Z88.0 Allergy status to penicillin; Z79.82 Long term (current) use of aspirin; Z79.899 Other long term (current) drug therapy; Z86.16 Personal history of COVID-19; Z90.49 Acquired absence of other specified parts of digestive tract; Z87.891 Personal history of nicotine dependence; J44.9 Chronic obstructive pulmonary disease, unspecified; F32.A Depression, unspecified
CPT/HCPCS: 0241U; 36415; 71046; 71275; 80053; 81001; 82140; 83605; 83615; 83735; 83880; 84484; 85025; 85379; 85610; 85730; 87040; 93005; 96365; 99285; J3490; J7030; Q9967; 99284

== ENCOUNTER 2024-08-13 16:06 | Observation (INO) | payer MEDICARE, OTHER, MEDICAID ==
[2024-08-13 17:17] LABS: BASOPHILS ABSOLUTE AUTO 0.1 K/mm3 (0.0-0.2); BASOPHILS PERCENT AUTO 1.5 % (0.0-1.0); EOSINOPHILS ABSOLUTE AUTO 0.4 K/mm3 (0.0-0.4); EOSINOPHILS PERCENT AUTO 6.4 % (0.0-6.0); HEMATOCRIT 35.8 % (42.0-52.0); HEMOGLOBIN 12.3 gm/dl (14.0-18.0); IMMATURE GRAN ABSOLUTE AUTO 0.02 K/mm3 (0.00-0.05); IMMATURE GRAN PERCENT AUTO 0.3 % (0.0-0.4); LYMPHOCYTES ABSOLUTE AUTO 1.1 K/mm3 (1.0-4.8); LYMPHOCYTES PERCENT AUTO 18.1 % (24.0-44.0); MEAN CORPUSCULAR HEMOGLOBIN 33.5 pg (28.0-32.0); MEAN CORPUSCULAR HGB CONC 34.4 g/dl (32.0-36.0); MEAN CORPUSCULAR VOLUME 97.5 fl (83.0-99.0); MEAN PLATELET VOLUME 8.6 fl (9.4-12.4); MONOCYTES ABSOLUTE AUTO 0.7 K/mm3 (0.0-0.8); MONOCYTES PERCENT AUTO 11.3 % (0.0-8.0); NEUTROPHILS ABSOLUTE AUTO 3.8 K/mm3 (1.8-7.7); NEUTROPHILS PERCENT AUTO 62.4 % (41.0-71.0); PLATELET COUNT,PLT 177 K/mm3 (150-400); RED BLOOD CELL COUNT 3.67 M/mm3 (4.52-5.90); WHITE BLOOD CELL COUNT,WBC 6.13 K/mm3 (3.9-11.3)
[2024-08-13 17:32] LABS: INR 1.37; PROTHROMBIN TIME 14.2 SECONDS (9.7-12.0)
[2024-08-13 17:37] LABS: LACTIC ACID 1.3 mmol/L (0.4-2.0)
[2024-08-13] MEDS: Sodium Chloride 0.9% 1,000 ML IV SCH (17:40)
[2024-08-13 17:50] LABS: A/G RATIO 0.9 (1-2); ALBUMIN 2.5 g/dl (3.4-5.0); ANION GAP 10.1 (5-15); BILIRUBIN TOTAL 2.3 mg/dL (0.2-1.0); C-REACTIVE PROTEIN 0.43 mg/dL (<0.30); CALCIUM 8.7 mg/dL (8.5-10.1); CREATININE 1.2 mg/dL (0.7-1.3); EST CRCL DRUG DOSING (CG) 67.36 mL/min; POTASSIUM,K 4.1 mEq/L (3.5-5.1); PROTEIN TOTAL,TP 5.3 g/dl (6.4-8.2)
[2024-08-13 17:59] LABS: CORONAVIRUS COVID-19 NAA NEGATIVE (NEGATIVE); INFLUENZA A NAA NEGATIVE (NEGATIVE); RESPIRATORY SYNCYTIAL VIR NAA NEGATIVE (NEGATIVE)
[2024-08-13] MEDS: Midodrine 5 MG Tab PO STA (19:18)
[2024-08-13] MEDS: Lactulose Soln 10 GM/15 ML 30 ML UD Cup PO SCH ×2 (19:18→20:52)
[2024-08-13] MEDS ORDERED: Ondansetron 4 MG/2 ML SDV IV PRN (19:19)
[2024-08-13] MEDS ORDERED: Sennosides/Docusate Sodium 50-8.6 MG Tab PO PRN (19:19)
[2024-08-13] MEDS ORDERED: Acetaminophen 325 MG Tab PO PRN (19:19)
[2024-08-13] MEDS ORDERED: oxyCODONE 5 MG Tab PO PRN (19:19)
[2024-08-13] MEDS: Insulin Lispro 100 Unit/ML 3 ML KwikPen SUBCUT SCH (20:51)
[2024-08-13] MEDS: Pantoprazole 40 MG Tab.CR PO SCH (20:52)
[2024-08-13 21:18] LABS: APPEARANCE,URINE CLEAR (Clear); BILIRUBIN,URINE NEGATIVE (Negative); COLOR,URINE YELLOW (Yellow); GLUCOSE,URINE NEGATIVE (Negative); KETONES,URINE NEGATIVE (Negative); LEUKOCYTE ESTERASE,URINE NEGATIVE (Negative); NITRITE,URINE NEGATIVE (Negative); OCCULT BLOOD,URINE 2+ (Negative); PH,URINE 8.5 (5.0-8.0); PROTEIN,URINE TRACE (Negative)
[2024-08-13 21:28] LABS: BACTERIA,URINE FEW /hpf (FEW); MUCUS,URINE FEW /hpf (FEW); RBC,URINE 20-30 /hpf (0-5); SQUAMOUS EPITHELIAL CELLS,UR 0-5 /hpf (0-5); WBC,URINE 0-5 /hpf (0-5)
[2024-08-14 04:46] LABS: BASOPHILS ABSOLUTE AUTO 0.1 K/mm3 (0.0-0.2); EOSINOPHILS ABSOLUTE AUTO 0.4 K/mm3 (0.0-0.4); EOSINOPHILS PERCENT AUTO 6.3 % (0.0-6.0); HEMATOCRIT 35.5 % (42.0-52.0); HEMOGLOBIN 12.4 gm/dl (14.0-18.0); IMMATURE GRAN ABSOLUTE AUTO 0.01 K/mm3 (0.00-0.05); IMMATURE GRAN PERCENT AUTO 0.2 % (0.0-0.4); LYMPHOCYTES ABSOLUTE AUTO 1.2 K/mm3 (1.0-4.8); LYMPHOCYTES PERCENT AUTO 18.3 % (24.0-44.0); MEAN CORPUSCULAR HEMOGLOBIN 33.4 pg (28.0-32.0); MEAN CORPUSCULAR HGB CONC 34.9 g/dl (32.0-36.0); MEAN CORPUSCULAR VOLUME 95.7 fl (83.0-99.0); MEAN PLATELET VOLUME 9.2 fl (9.4-12.4); MONOCYTES ABSOLUTE AUTO 0.8 K/mm3 (0.0-0.8); MONOCYTES PERCENT AUTO 11.6 % (0.0-8.0); NEUTROPHILS PERCENT AUTO 61.6 % (41.0-71.0); PLATELET COUNT,PLT 184 K/mm3 (150-400); RED BLOOD CELL COUNT 3.71 M/mm3 (4.52-5.90); WHITE BLOOD CELL COUNT,WBC 6.49 K/mm3 (3.9-11.3)
[2024-08-14 05:12] LABS: A/G RATIO 0.8 (1-2); ALBUMIN 2.3 g/dl (3.4-5.0); ANION GAP 12.7 (5-15); BILIRUBIN TOTAL 2.6 mg/dL (0.2-1.0); BUN/CREATININE RATIO 9.2 (14-18); CALCIUM 8.7 mg/dL (8.5-10.1); CREATININE 1.2 mg/dL (0.7-1.3); EST CRCL DRUG DOSING (CG) 67.36 mL/min; MAGNESIUM 1.9 mg/dL (1.8-2.4); PHOSPHORUS 3.8 mg/dL (2.6-4.7); POTASSIUM,K 3.7 mEq/L (3.5-5.1); PROTEIN TOTAL,TP 5.1 g/dl (6.4-8.2)
[2024-08-14] MEDS: Midodrine 5 MG Tab PO SCH ×3 (06:30→20:41)
[2024-08-14] MEDS: Enoxaparin 40 MG/0.4 ML Syringe SUBCUT SCH (07:59)
[2024-08-14] MEDS: Methocarbamol 500 MG Tab PO SCH (09:42)
[2024-08-14] MEDS: Aspirin 81 MG Tab.EC PO SCH (09:43)
[2024-08-14] MEDS: Citalopram 20 MG Tab PO SCH (09:43)
[2024-08-14] MEDS: Furosemide 40 MG Tab PO SCH (09:43)
[2024-08-14] MEDS: Magnesium Oxide 400 MG Tab PO SCH (09:43)
[2024-08-14] MEDS: Spironolactone 100 MG Tab PO SCH (09:43)
[2024-08-14] MEDS: Tamsulosin 0.4 MG Cap.ER PO SCH (09:43)
[2024-08-14] MEDS: Pantoprazole 40 MG Tab.CR PO SCH (09:43)
[2024-08-14] MEDS: Potassium Chloride 10 MEQ Tab.ER PO SCH (09:43)
[2024-08-14] MEDS: Cholecalciferol (Vitamin D3) 5,000 UNIT Cap PO SCH (09:46)
[2024-08-14] MEDS: Tiotropium Bromide 4 GM Inhalation Spray (2.5mcg/1 dose; 10 doses) INH SCH (09:50)
[2024-08-14] MEDS: Lactulose Soln 10 GM/15 ML 30 ML UD Cup PO SCH (11:54)
[2024-08-14] MEDS ORDERED: Albuterol 6.7 GM Inhaler INH PRN (12:41)
[2024-08-14] MEDS: Melatonin 3 MG Tab PO PRN (23:22)
== END 2024-08-15 14:06 | disposition home or self-care (01) ==
LOC: JD.ED 16:06 → JD.MS 19:19
PROVIDERS: ADMIT Student in an Organized Health Care Education/Training Program; ATTEND Student in an Organized Health Care Education/Training Program
DX: K76.82 Hepatic encephalopathy (principal); I10 Essential (primary) hypertension; J44.9 Chronic obstructive pulmonary disease, unspecified; I25.2 Old myocardial infarction; K21.9 Gastro-esophageal reflux disease without esophagitis; K74.60 Unspecified cirrhosis of liver; E83.119 Hemochromatosis, unspecified; E72.20 Disorder of urea cycle metabolism, unspecified; I25.10 Atherosclerotic heart disease of native coronary artery without angina pectoris; F32.A Depression, unspecified; Z95.1 Presence of aortocoronary bypass graft; Z79.899 Other long term (current) drug therapy; Z88.0 Allergy status to penicillin
CPT/HCPCS: 0241U; 36415; 70450; 80053; 81001; 82140; 82947; 83605; 83735; 83880; 84100; 84484; 85025; 85610; 86140; 93005; 94640; 94760; 94761; 96360; 96361; 97116; 97161; 99285; J1650; J7030; 93010; 96372; 99284; A9270-GY; G0378

== ENCOUNTER 2024-09-05 08:32 | Inpatient (IN) | payer MEDICARE, OTHER, MEDICAID ==
[2024-09-05] MEDS ORDERED: Sodium Chloride 0.9% 10 ML Syringe FLUSH PRN ×2 (08:39→08:57)
[2024-09-05 09:30] LABS: BASOPHILS ABSOLUTE AUTO 0.1 K/mm3 (0.0-0.2); EOSINOPHILS ABSOLUTE AUTO 0.1 K/mm3 (0.0-0.4); EOSINOPHILS PERCENT AUTO 1.4 % (0.0-6.0); HEMATOCRIT 34.5 % (42.0-52.0); HEMOGLOBIN 12.2 gm/dl (14.0-18.0); IMMATURE GRAN ABSOLUTE AUTO 0.04 K/mm3 (0.00-0.05); IMMATURE GRAN PERCENT AUTO 0.7 % (0.0-0.4); LYMPHOCYTES ABSOLUTE AUTO 0.6 K/mm3 (1.0-4.8); MEAN CORPUSCULAR HEMOGLOBIN 33.1 pg (28.0-32.0); MEAN CORPUSCULAR HGB CONC 35.4 g/dl (32.0-36.0); MEAN CORPUSCULAR VOLUME 93.5 fl (83.0-99.0); MONOCYTES ABSOLUTE AUTO 0.5 K/mm3 (0.0-0.8); MONOCYTES PERCENT AUTO 8.2 % (0.0-8.0); NEUTROPHILS ABSOLUTE AUTO 4.5 K/mm3 (1.8-7.7); NEUTROPHILS PERCENT AUTO 78.7 % (41.0-71.0); PLATELET COUNT,PLT 147 K/mm3 (150-400); RED BLOOD CELL COUNT 3.69 M/mm3 (4.52-5.90); WHITE BLOOD CELL COUNT,WBC 5.72 K/mm3 (3.9-11.3)
[2024-09-05] MEDS: Sodium Chloride 0.9% 500 ML IV SCH (09:34)
[2024-09-05 09:42] LABS: INR 1.37; PROTHROMBIN TIME 14.2 SECONDS (9.7-12.0)
[2024-09-05 09:58] LABS: A/G RATIO 0.9 (1-2); ALBUMIN 2.5 g/dl (3.4-5.0); ANION GAP 14.4 (5-15); BILIRUBIN TOTAL 2.7 mg/dL (0.2-1.0); BUN/CREATININE RATIO 11.5 (14-18); CALCIUM 8.8 mg/dL (8.5-10.1); CREATININE 1.3 mg/dL (0.7-1.3); EST CRCL DRUG DOSING (CG) 62.18 mL/min; MAGNESIUM 1.8 mg/dL (1.8-2.4); POTASSIUM,K 4.4 mEq/L (3.5-5.1); PROTEIN TOTAL,TP 5.4 g/dl (6.4-8.2); TSH 2.857 uIU/mL (0.358-3.74)
[2024-09-05 10:03] LABS: LACTIC ACID 2.4 mmol/L (0.4-2.0)
[2024-09-05 11:02] LABS: CORONAVIRUS COVID-19 NAA NEGATIVE (NEGATIVE); INFLUENZA A NAA NEGATIVE (NEGATIVE); RESPIRATORY SYNCYTIAL VIR NAA NEGATIVE (NEGATIVE)
[2024-09-05 11:03] LABS: APPEARANCE,URINE CLEAR (Clear); BILIRUBIN,URINE NEGATIVE (Negative); COLOR,URINE YELLOW (Yellow); GLUCOSE,URINE NEGATIVE (Negative); KETONES,URINE NEGATIVE (Negative); LEUKOCYTE ESTERASE,URINE NEGATIVE (Negative); NITRITE,URINE NEGATIVE (Negative); OCCULT BLOOD,URINE 2+ (Negative); PH,URINE 6.5 (5.0-8.0); PROTEIN,URINE TRACE (Negative)
[2024-09-05 11:37] LABS: BACTERIA,URINE NOT SEEN /hpf (FEW); EPITHELIAL CELLS,URINE 0-5 /hpf (0-5); MUCUS,URINE NOT SEEN /hpf (FEW); WBC,URINE 0-5 /hpf (0-5)
[2024-09-05 13:10] LABS: BARBITURATE SCREEN,URINE NEGATIVE (CUTOFF=200); BENZODIAZEPINES SCREEN,URINE NEGATIVE (CUTOFF=150); BUPRENORPHINE SCREEN,URINE NEGATIVE (CUTOFF=10); METHADONE SCREEN, URINE NEGATIVE (CUT0FF=200); METHAMPHETAMINES SCREEN, URINE NEGATIVE (CUTOFF=500); OXYCODONE SCREEN,URINE NEGATIVE (CUT0FF=100); THC SCREEN,URINE 20 NG/ML NEGATIVE (CUTOFF=50)
[2024-09-05 13:17] LABS: AMPHETAMINES SCREEN, URINE NEGATIVE (CUTOFF=500)
[2024-09-05] MEDS: Sodium Chloride 0.9% 10 ML Syringe FLUSH ONE (15:19)
[2024-09-05] MEDS: Iopamidol 612 MG/ML 30 ML SDV IVPUSH ONE (15:19)
[2024-09-05] MEDS: Iopamidol 612 MG/ML 100 ML Bottle IVPUSH ONE (15:19)
[2024-09-05] MEDS ORDERED: Methocarbamol 500 MG Tab PO PRN (16:48)
[2024-09-05] MEDS ORDERED: Ondansetron 4 MG Tab.DIS PO PRN (16:57)
[2024-09-05] MEDS ORDERED: Ondansetron 4 MG/2 ML SDV IV PRN (16:57)
[2024-09-05] MEDS ORDERED: Folic Acid 50 MG/10 ML MDV IV SCH (18:15)
[2024-09-05] MEDS: Midodrine 5 MG Tab PO SCH (18:22)
[2024-09-05] MEDS: Heparin Sodium 5,000 Units/ML Vial SUBCUT SCH (18:26)
[2024-09-05] MEDS: Lactulose Soln 10 GM/15 ML 30 ML UD Cup PO SCH (20:12)
[2024-09-05] MEDS ORDERED: Potassium Chloride 20 MEQ Tab.ER PO SCH (21:00)
[2024-09-05] MEDS ORDERED: Furosemide 40 MG Tab PO SCH (21:00)
[2024-09-06 04:42] LABS: BASOPHILS ABSOLUTE AUTO 0.1 K/mm3 (0.0-0.2); BASOPHILS PERCENT AUTO 1.8 % (0.0-1.0); EOSINOPHILS ABSOLUTE AUTO 0.5 K/mm3 (0.0-0.4); EOSINOPHILS PERCENT AUTO 7.9 % (0.0-6.0); HEMOGLOBIN 11.8 gm/dl (14.0-18.0); IMMATURE GRAN ABSOLUTE AUTO 0.01 K/mm3 (0.00-0.05); IMMATURE GRAN PERCENT AUTO 0.2 % (0.0-0.4); LYMPHOCYTES ABSOLUTE AUTO 1.5 K/mm3 (1.0-4.8); LYMPHOCYTES PERCENT AUTO 24.3 % (24.0-44.0); MEAN CORPUSCULAR HGB CONC 34.7 g/dl (32.0-36.0); MONOCYTES ABSOLUTE AUTO 0.6 K/mm3 (0.0-0.8); MONOCYTES PERCENT AUTO 9.4 % (0.0-8.0); NEUTROPHILS ABSOLUTE AUTO 3.5 K/mm3 (1.8-7.7); NEUTROPHILS PERCENT AUTO 56.4 % (41.0-71.0); PLATELET COUNT,PLT 158 K/mm3 (150-400); RED BLOOD CELL COUNT 3.58 M/mm3 (4.52-5.90); WHITE BLOOD CELL COUNT,WBC 6.18 K/mm3 (3.9-11.3)
[2024-09-06 05:24] LABS: A/G RATIO 0.9 (1-2); ALBUMIN 2.4 g/dl (3.4-5.0); ANION GAP 12.6 (5-15); BUN/CREATININE RATIO 10.8 (14-18); C-REACTIVE PROTEIN 0.23 mg/dL (<0.30); CREATININE 1.2 mg/dL (0.7-1.3); EST CRCL DRUG DOSING (CG) 67.36 mL/min; MAGNESIUM 1.7 mg/dL (1.8-2.4); POTASSIUM,K 3.6 mEq/L (3.5-5.1)
[2024-09-06 05:51] LABS: BILIRUBIN TOTAL 4.5 mg/dL (0.2-1.0)
[2024-09-06] MEDS ORDERED: Pantoprazole 40 MG Tab.CR PO SCH (06:00)
[2024-09-06] MEDS: Magnesium Sulfate/Water Premix 2 GM in Premix Bag 1 BAG IV ONE (08:35)
[2024-09-06] MEDS: Folic Acid 50 MG/10 ML MDV IV SCH (08:35)
[2024-09-06] MEDS ORDERED: Tamsulosin 0.4 MG Cap.ER PO SCH (09:00)
[2024-09-06] MEDS ORDERED: Cholecalciferol (Vitamin D3) 5,000 UNIT Cap PO SCH (09:00)
[2024-09-06] MEDS ORDERED: Citalopram 20 MG Tab PO SCH (09:00)
[2024-09-06] MEDS ORDERED: Aspirin 81 MG Tab.EC PO SCH (09:00)
[2024-09-06] MEDS ORDERED: Spironolactone 100 MG Tab PO SCH (09:00)
[2024-09-06] MEDS ORDERED: Methocarbamol 500 MG Tab PO PRN (12:56)
[2024-09-06] MEDS ORDERED: Ondansetron 4 MG Tab.DIS PO PRN (12:57)
[2024-09-06] MEDS: Furosemide 40 MG Tab PO SCH (14:01)
[2024-09-06] MEDS: Tiotropium Bromide 4 GM Inhalation Spray (2.5mcg/1 dose; 10 doses) INH SCH (14:50)
[2024-09-06] MEDS: Potassium Chloride 20 MEQ Tab.ER PO SCH (17:15)
[2024-09-06] MEDS: atorvaSTATin 40 MG Tab PO ONE (17:16)
[2024-09-06 17:17] LABS: CHOLESTEROL HDL 87 mg/dL (40-59); CHOLESTEROL LDL DIRECT 93 mg/dL (<100)
[2024-09-06 17:32] LABS: TRIGLYCERIDES 57 mg/dL (<150)
[2024-09-06 17:33] LABS: CHOLESTEROL TOTAL 188 mg/dL (<200)
[2024-09-06] MEDS: Sodium Chloride 0.9% 500 ML IV ONE (19:56)
[2024-09-06] MEDS: Sodium Chloride 0.9% 500 ML IV SCH (21:22)
[2024-09-07 05:32] LABS: BASOPHILS ABSOLUTE AUTO 0.1 K/mm3 (0.0-0.2); BASOPHILS PERCENT AUTO 1.9 % (0.0-1.0); EOSINOPHILS ABSOLUTE AUTO 0.4 K/mm3 (0.0-0.4); EOSINOPHILS PERCENT AUTO 6.1 % (0.0-6.0); HEMATOCRIT 32.1 % (42.0-52.0); HEMOGLOBIN 11.3 gm/dl (14.0-18.0); IMMATURE GRAN ABSOLUTE AUTO 0.02 K/mm3 (0.00-0.05); IMMATURE GRAN PERCENT AUTO 0.3 % (0.0-0.4); LYMPHOCYTES ABSOLUTE AUTO 1.3 K/mm3 (1.0-4.8); LYMPHOCYTES PERCENT AUTO 21.7 % (24.0-44.0); MEAN CORPUSCULAR HEMOGLOBIN 32.6 pg (28.0-32.0); MEAN CORPUSCULAR HGB CONC 35.2 g/dl (32.0-36.0); MEAN CORPUSCULAR VOLUME 92.5 fl (83.0-99.0); MEAN PLATELET VOLUME 8.9 fl (9.4-12.4); MONOCYTES ABSOLUTE AUTO 0.7 K/mm3 (0.0-0.8); MONOCYTES PERCENT AUTO 12.2 % (0.0-8.0); NEUTROPHILS ABSOLUTE AUTO 3.4 K/mm3 (1.8-7.7); NEUTROPHILS PERCENT AUTO 57.8 % (41.0-71.0); PLATELET COUNT,PLT 142 K/mm3 (150-400); RED BLOOD CELL COUNT 3.47 M/mm3 (4.52-5.90); WHITE BLOOD CELL COUNT,WBC 5.89 K/mm3 (3.9-11.3)
[2024-09-07 05:53] LABS: A/G RATIO 0.8 (1-2); ALBUMIN 2.1 g/dl (3.4-5.0); ANION GAP 11.3 (5-15); BILIRUBIN TOTAL 2.4 mg/dL (0.2-1.0); BUN/CREATININE RATIO 11.8 (14-18); CALCIUM 8.1 mg/dL (8.5-10.1); CREATININE 1.1 mg/dL (0.7-1.3); EST CRCL DRUG DOSING (CG) 73.48 mL/min; MAGNESIUM 1.9 mg/dL (1.8-2.4); POTASSIUM,K 4.3 mEq/L (3.5-5.1); PROTEIN TOTAL,TP 4.7 g/dl (6.4-8.2)
[2024-09-07] MEDS: Acetaminophen 325 MG Tab PO PRN (06:35)
[2024-09-07] MEDS: Pantoprazole 40 MG Tab.CR PO SCH (06:36)
[2024-09-07] MEDS: Tamsulosin 0.4 MG Cap.ER PO SCH (08:38)
[2024-09-07] MEDS: Aspirin 81 MG Tab.EC PO SCH (08:38)
[2024-09-07] MEDS: Folic Acid 1 MG Tab PO SCH (08:39)
[2024-09-07] MEDS: Cholecalciferol (Vitamin D3) 5,000 UNIT Cap PO SCH (08:39)
[2024-09-07] MEDS: Citalopram 20 MG Tab PO SCH (08:41)
[2024-09-07] MEDS: Nitroglycerin 0.4 MG Tab.SL SL PRN (08:50)
[2024-09-07] MEDS ORDERED: Spironolactone 100 MG Tab PO SCH (09:00)
[2024-09-07] MEDS: atorvaSTATin 40 MG Tab PO SCH (20:41)
[2024-09-07] MEDS: Calcium Carbonate 500 MG Tab.Chew PO PRN (22:21)
== END 2024-09-08 12:29 | disposition home or self-care (01) | DRG 64 ==
LOC: JD.ED 08:32 → JD.MS 14:58
PROVIDERS: ADMIT Family Medicine; ATTEND Family Medicine
DX: I63.9 Cerebral infarction, unspecified (principal); G92.8 Other toxic encephalopathy; E87.20 Acidosis, unspecified; K74.60 Unspecified cirrhosis of liver; E83.119 Hemochromatosis, unspecified; I10 Essential (primary) hypertension; J44.9 Chronic obstructive pulmonary disease, unspecified; K21.9 Gastro-esophageal reflux disease without esophagitis; R29.700 NIHSS score 0; F32.A Depression, unspecified; H54.7 Unspecified visual loss; W01.0XXA Fall on same level from slipping, tripping and stumbling without subsequent striking against object, initial encounter; R13.10 Dysphagia, unspecified; E83.42 Hypomagnesemia; Z86.73 Personal history of transient ischemic attack (TIA), and cerebral infarction without residual deficits; Z88.0 Allergy status to penicillin; Z79.51 Long term (current) use of inhaled steroids; Z79.899 Other long term (current) drug therapy; Z79.82 Long term (current) use of aspirin; Z95.1 Presence of aortocoronary bypass graft; I25.2 Old myocardial infarction; Z87.01 Personal history of pneumonia (recurrent); Z90.49 Acquired absence of other specified parts of digestive tract; Z86.16 Personal history of COVID-19; Z87.891 Personal history of nicotine dependence; Z99.81 Dependence on supplemental oxygen; Z87.19 Personal history of other diseases of the digestive system
CPT/HCPCS: 0241U; 36415; 70450; 70496; 70498; 70551; 71045; 74177; 80053; 80061; 80179; 80306; 80307; 81001; 82140; 82550; 82607; 82728; 82746; 82947; 83605; 83690; 83735; 83880; 84443; 84484; 85025; 85610; 85730; 86140; 92610; 93005; 94640; 94760; 96360; 96361; 99285; 93010; 99223; 99233; 99239; A9270-GY; J1644; J3475; J3490; J7040; Q9967

== ENCOUNTER 2024-09-20 22:03 | Emergency (ER) | payer MEDICARE, OTHER, MEDICAID ==
[2024-09-20 23:55] LABS: BASOPHILS ABSOLUTE AUTO 0.1 K/mm3 (0.0-0.2); BASOPHILS PERCENT AUTO 1.1 % (0.0-1.0); EOSINOPHILS ABSOLUTE AUTO 0.3 K/mm3 (0.0-0.4); EOSINOPHILS PERCENT AUTO 3.9 % (0.0-6.0); HEMATOCRIT 38.1 % (42.0-52.0); HEMOGLOBIN 13.1 gm/dl (14.0-18.0); IMMATURE GRAN ABSOLUTE AUTO 0.03 K/mm3 (0.00-0.05); IMMATURE GRAN PERCENT AUTO 0.5 % (0.0-0.4); LYMPHOCYTES ABSOLUTE AUTO 0.8 K/mm3 (1.0-4.8); LYMPHOCYTES PERCENT AUTO 12.2 % (24.0-44.0); MEAN CORPUSCULAR HEMOGLOBIN 32.8 pg (28.0-32.0); MEAN CORPUSCULAR HGB CONC 34.4 g/dl (32.0-36.0); MEAN CORPUSCULAR VOLUME 95.3 fl (83.0-99.0); MEAN PLATELET VOLUME 9.8 fl (9.4-12.4); MONOCYTES ABSOLUTE AUTO 0.6 K/mm3 (0.0-0.8); MONOCYTES PERCENT AUTO 9.2 % (0.0-8.0); NEUTROPHILS ABSOLUTE AUTO 4.9 K/mm3 (1.8-7.7); NEUTROPHILS PERCENT AUTO 73.1 % (41.0-71.0); PLATELET COUNT,PLT 169 K/mm3 (150-400); WHITE BLOOD CELL COUNT,WBC 6.63 K/mm3 (3.9-11.3)
[2024-09-21 00:01] LABS: INR 1.4; PROTHROMBIN TIME 14.5 SECONDS (9.7-12.0)
[2024-09-21 00:02] LABS: PTT,PARTIAL THROMBOPLSTIN TIME 31.8 SECONDS (21.7-31.4)
[2024-09-21 00:06] LABS: LACTIC ACID 1.9 mmol/L (0.4-2.0)
[2024-09-21 00:13] LABS: A/G RATIO 0.9 (1-2); ALBUMIN 2.7 g/dl (3.4-5.0); ANION GAP 12.4 (5-15); BILIRUBIN TOTAL 2.1 mg/dL (0.2-1.0); BUN/CREATININE RATIO 6.7 (14-18); CALCIUM 9.7 mg/dL (8.5-10.1); CREATININE 1.8 mg/dL (0.7-1.3); EST CRCL DRUG DOSING (CG) 44.91 mL/min; POTASSIUM,K 4.4 mEq/L (3.5-5.1); PROTEIN TOTAL,TP 5.8 g/dl (6.4-8.2)
[2024-09-21 00:52] LABS: APPEARANCE,URINE SLT CLOUDY (Clear); BILIRUBIN,URINE NEGATIVE (Negative); COLOR,URINE YELLOW (Yellow); GLUCOSE,URINE NEGATIVE (Negative); KETONES,URINE TRACE (Negative); LEUKOCYTE ESTERASE,URINE NEGATIVE (Negative); NITRITE,URINE NEGATIVE (Negative); OCCULT BLOOD,URINE 2+ (Negative); PH,URINE 6.5 (5.0-8.0); PROTEIN,URINE 3+ (Negative); UROBILINOGEN,URINE 0.2 (0.2-1.0)
[2024-09-21 01:06] LABS: EPITHELIAL CELLS,URINE NOT SEEN /hpf (0-5); WBC,URINE 0-5 /hpf (0-5)
[2024-09-21 01:07] LABS: BACTERIA,URINE MODERATE /hpf (FEW); HYALINE CASTS,URINE 0-5 /lpf (0-5); MUCUS,URINE FEW /hpf (FEW)
[2024-09-21] MEDS: Iopamidol 612 MG/ML 100 ML Bottle IVPUSH ONE (01:12)
[2024-09-21] MEDS: cefTRIAXone 2 GM in Sodium Chloride 0.9% 100 ML IV ONE (01:30)
[2024-09-21] MEDS: Lactulose Soln 10 GM/15 ML 30 ML UD Cup PO ONE ×2 (01:36→09:04)
[2024-09-21] MEDS: Ondansetron 4 MG Tab.DIS PO ONE (12:54)
== END 2024-09-21 14:00 | disposition home or self-care (01) ==
LOC: JD.ED 22:03
DX: K74.60 Unspecified cirrhosis of liver (principal); R18.8 Other ascites; E72.20 Disorder of urea cycle metabolism, unspecified; R41.0 Disorientation, unspecified; I25.2 Old myocardial infarction; I11.0 Hypertensive heart disease with heart failure; I50.9 Heart failure, unspecified; J44.9 Chronic obstructive pulmonary disease, unspecified; K21.9 Gastro-esophageal reflux disease without esophagitis; Z86.73 Personal history of transient ischemic attack (TIA), and cerebral infarction without residual deficits; Z86.16 Personal history of COVID-19; Z90.49 Acquired absence of other specified parts of digestive tract; Z88.0 Allergy status to penicillin; Z79.51 Long term (current) use of inhaled steroids; Z79.82 Long term (current) use of aspirin; Z79.899 Other long term (current) drug therapy
CPT/HCPCS: 36415; 71045; 74177; 80053; 80307; 81001; 82140; 83605; 83690; 84484; 85025; 85610; 85730; 93005; 96365; 99285; A9270; J0696; J3490; Q9967

== ENCOUNTER 2024-10-14 09:39 | Emergency (ER) | payer MEDICARE, OTHER, MEDICAID | END 2024-10-14 11:12 | disposition home or self-care (01) | LOC: JD.ED 09:39 | DX: K74.60 Unspecified cirrhosis of liver (principal); R18.8 Other ascites; I25.2 Old myocardial infarction; I10 Essential (primary) hypertension; J44.9 Chronic obstructive pulmonary disease, unspecified; K21.9 Gastro-esophageal reflux disease without esophagitis; Z86.73 Personal history of transient ischemic attack (TIA), and cerebral infarction without residual deficits; Z86.16 Personal history of COVID-19; Z90.49 Acquired absence of other specified parts of digestive tract; Z98.890 Other specified postprocedural states; Z87.891 Personal history of nicotine dependence; Z88.0 Allergy status to penicillin; Z79.51 Long term (current) use of inhaled steroids; Z79.82 Long term (current) use of aspirin; Z79.899 Other long term (current) drug therapy | CPT/HCPCS: 49082; 99284-25 ==

== ENCOUNTER 2024-11-22 10:10 | Emergency (ER) | payer MEDICARE, OTHER, MEDICAID ==
[2024-11-22 12:04] LABS: BASOPHILS ABSOLUTE AUTO 0.1 K/mm3 (0.0-0.2); EOSINOPHILS ABSOLUTE AUTO 0.3 K/mm3 (0.0-0.4); HEMATOCRIT 37.4 % (42.0-52.0); IMMATURE GRAN ABSOLUTE AUTO 0.02 K/mm3 (0.00-0.05); IMMATURE GRAN PERCENT AUTO 0.3 % (0.0-0.4); LYMPHOCYTES ABSOLUTE AUTO 0.8 K/mm3 (1.0-4.8); LYMPHOCYTES PERCENT AUTO 12.3 % (24.0-44.0); MEAN CORPUSCULAR HEMOGLOBIN 31.7 pg (28.0-32.0); MEAN CORPUSCULAR HGB CONC 34.8 g/dl (32.0-36.0); MEAN CORPUSCULAR VOLUME 91.2 fl (83.0-99.0); MEAN PLATELET VOLUME 9.3 fl (9.4-12.4); MONOCYTES PERCENT AUTO 14.3 % (0.0-8.0); NEUTROPHILS ABSOLUTE AUTO 4.7 K/mm3 (1.8-7.7); NEUTROPHILS PERCENT AUTO 68.1 % (41.0-71.0); PLATELET COUNT,PLT 158 K/mm3 (150-400); WHITE BLOOD CELL COUNT,WBC 6.83 K/mm3 (3.9-11.3)
[2024-11-22 12:05] LABS: APPEARANCE,URINE CLEAR (Clear); BILIRUBIN,URINE NEGATIVE (Negative); COLOR,URINE YELLOW (Yellow); GLUCOSE,URINE NEGATIVE (Negative); KETONES,URINE NEGATIVE (Negative); LEUKOCYTE ESTERASE,URINE NEGATIVE (Negative); NITRITE,URINE NEGATIVE (Negative); OCCULT BLOOD,URINE 1+ (Negative); PH,URINE 5.5 (5.0-8.0); PROTEIN,URINE NEGATIVE (Negative); UROBILINOGEN,URINE 0.2 (0.2-1.0)
[2024-11-22 12:23] LABS: BACTERIA,URINE RARE /hpf (FEW); MUCUS,URINE NOT SEEN /hpf (FEW); RBC,URINE 0-5 /hpf (0-5); SQUAMOUS EPITHELIAL CELLS,UR NOT SEEN /hpf (0-5); WBC,URINE 0-5 /hpf (0-5)
[2024-11-22 12:25] LABS: A/G RATIO 0.8 (1-2); ALBUMIN 2.1 g/dl (3.4-5.0); ANION GAP 9.5 (5-15); BUN/CREATININE RATIO 7.1 (14-18); C-REACTIVE PROTEIN 0.61 mg/dL (<0.30); CREATININE 1.4 mg/dL (0.7-1.3); EST CRCL DRUG DOSING (CG) 57.74 mL/min; POTASSIUM,K 4.5 mEq/L (3.5-5.1); PROTEIN TOTAL,TP 4.7 g/dl (6.4-8.2)
[2024-11-22 12:44] LABS: INR 1.41; PROTHROMBIN TIME 14.6 SECONDS (9.7-12.0)
[2024-11-22 12:49] LABS: BODY FLUID TYPE PERITONEAL FLUID
[2024-11-22 13:02] LABS: APPEARANCE,BODY FLUID SLIGHTLY CLOUDY; COLOR,BODY FLUID YELLOW; VOLUME BODY FLUID 46 ML
[2024-11-22 13:03] LABS: WBC BODY FLUID 102 /uL (0-0)
[2024-11-22 13:04] LABS: MONONUCLEAR, BODY FLUID 78.4 % (0.0-0.0); POLYMORPHONUCLEAR, BODY FLUID 21.6 % (0.0-0.0)
[2024-11-22 13:05] LABS: SITE,BODY FLUID PERITONEAL
[2024-11-22] MEDS: Albumin 25% 12.5 GM/50 ML BAG IV ONE (13:07)
[2024-11-22 16:11] LABS: GLUCOSE,BODY FLUID 118 mg/dL
[2024-11-22 16:26] LABS: PROTEIN,BODY FLUID < 2.0 gm/dl
== END 2024-11-22 14:30 | disposition home or self-care (01) ==
LOC: JD.ED 10:10
DX: K74.60 Unspecified cirrhosis of liver (principal); R18.8 Other ascites; I10 Essential (primary) hypertension; I25.2 Old myocardial infarction; Z88.0 Allergy status to penicillin; Z79.899 Other long term (current) drug therapy; Z79.51 Long term (current) use of inhaled steroids; Z79.82 Long term (current) use of aspirin; Z95.1 Presence of aortocoronary bypass graft; Z86.73 Personal history of transient ischemic attack (TIA), and cerebral infarction without residual deficits; Z90.49 Acquired absence of other specified parts of digestive tract
CPT/HCPCS: 36415; 49083; 80053; 81001; 82140; 82945; 84157; 85025; 85610; 86140; 89050; 96365; 99284; P9047

== ENCOUNTER 2024-12-05 12:57 | Emergency (ER) | payer MEDICARE, OTHER | END 2024-12-05 14:40 | LOC: JD.ED 12:57 | DX: R18.8 Other ascites (principal); I10 Essential (primary) hypertension; I25.2 Old myocardial infarction; J44.9 Chronic obstructive pulmonary disease, unspecified; Z86.73 Personal history of transient ischemic attack (TIA), and cerebral infarction without residual deficits; Z88.0 Allergy status to penicillin; Z79.899 Other long term (current) drug therapy; Z79.82 Long term (current) use of aspirin; Z86.16 Personal history of COVID-19; Z90.49 Acquired absence of other specified parts of digestive tract; Z98.890 Other specified postprocedural states | CPT/HCPCS: 49083; 99284-25 ==

== ENCOUNTER 2025-01-06 15:59 | Emergency (ER) | payer MEDICARE, OTHER ==
[2025-01-06] MEDS ORDERED: Sodium Chloride 0.9% 10 ML Syringe FLUSH PRN (17:18)
[2025-01-06 18:55] LABS: APPEARANCE,URINE CLEAR (Clear); BILIRUBIN,URINE 1+ (Negative); COLOR,URINE AMBER (Yellow); GLUCOSE,URINE NEGATIVE (Negative); KETONES,URINE 1+ (Negative); LEUKOCYTE ESTERASE,URINE NEGATIVE (Negative); NITRITE,URINE NEGATIVE (Negative); OCCULT BLOOD,URINE 2+ (Negative); PH,URINE 5.5 (5.0-8.0); PROTEIN,URINE 1+ (Negative); UROBILINOGEN,URINE 0.2 (0.2-1.0)
[2025-01-06 18:57] LABS: BASOPHILS ABSOLUTE AUTO 0.1 K/mm3 (0.0-0.2); BASOPHILS PERCENT AUTO 0.7 % (0.0-1.0); EOSINOPHILS ABSOLUTE AUTO 0.4 K/mm3 (0.0-0.4); EOSINOPHILS PERCENT AUTO 4.3 % (0.0-6.0); HEMATOCRIT 38.5 % (42.0-52.0); HEMOGLOBIN 13.4 gm/dl (14.0-18.0); IMMATURE GRAN ABSOLUTE AUTO 0.03 K/mm3 (0.00-0.05); IMMATURE GRAN PERCENT AUTO 0.3 % (0.0-0.4); LYMPHOCYTES PERCENT AUTO 10.6 % (24.0-44.0); MEAN CORPUSCULAR HEMOGLOBIN 32.1 pg (28.0-32.0); MEAN CORPUSCULAR HGB CONC 34.8 g/dl (32.0-36.0); MEAN CORPUSCULAR VOLUME 92.3 fl (83.0-99.0); MEAN PLATELET VOLUME 9.6 fl (9.4-12.4); MONOCYTES ABSOLUTE AUTO 1.3 K/mm3 (0.0-0.8); MONOCYTES PERCENT AUTO 13.2 % (0.0-8.0); NEUTROPHILS PERCENT AUTO 70.9 % (41.0-71.0); PLATELET COUNT,PLT 186 K/mm3 (150-400); RED BLOOD CELL COUNT 4.17 M/mm3 (4.52-5.90); WHITE BLOOD CELL COUNT,WBC 9.82 K/mm3 (3.9-11.3)
[2025-01-06 19:21] LABS: A/G RATIO 0.8 (1-2); ALBUMIN 2.2 g/dl (3.4-5.0); BILIRUBIN TOTAL 3.4 mg/dL (0.2-1.0); BUN/CREATININE RATIO 7.2 (14-18); CREATININE 1.8 mg/dL (0.7-1.3); EST CRCL DRUG DOSING (CG) 39.58 mL/min; MAGNESIUM 1.9 mg/dL (1.8-2.4)
[2025-01-06 19:38] LABS: BACTERIA,URINE FEW /hpf (FEW); MUCUS,URINE MODERATE /hpf (FEW); SQUAMOUS EPITHELIAL CELLS,UR 0-5 /hpf (0-5); WBC,URINE 0-5 /hpf (0-5)
== END 2025-01-06 20:32 | disposition home or self-care (01) ==
LOC: JD.ED 15:59
DX: R10.11 Right upper quadrant pain (principal); R79.89 Other specified abnormal findings of blood chemistry; I10 Essential (primary) hypertension; I25.2 Old myocardial infarction; J44.9 Chronic obstructive pulmonary disease, unspecified; Z88.0 Allergy status to penicillin; Z79.899 Other long term (current) drug therapy; Z79.82 Long term (current) use of aspirin; Z86.73 Personal history of transient ischemic attack (TIA), and cerebral infarction without residual deficits; Z90.49 Acquired absence of other specified parts of digestive tract; Z87.19 Personal history of other diseases of the digestive system
CPT/HCPCS: 36415; 74176; 74176-26; 80053; 81001; 82140; 82947; 83690; 83735; 85025; 87040; 99284

== ENCOUNTER 2025-01-10 11:47 | Emergency (ER) | payer MEDICARE, OTHER | END 2025-01-10 17:10 | disposition home or self-care (01) | LOC: JD.ED 11:47 | DX: R18.8 Other ascites (principal); I10 Essential (primary) hypertension; I25.2 Old myocardial infarction; J44.9 Chronic obstructive pulmonary disease, unspecified; K21.9 Gastro-esophageal reflux disease without esophagitis; Z86.73 Personal history of transient ischemic attack (TIA), and cerebral infarction without residual deficits; Z90.49 Acquired absence of other specified parts of digestive tract; Z87.19 Personal history of other diseases of the digestive system; Z88.0 Allergy status to penicillin; Z79.51 Long term (current) use of inhaled steroids; Z79.82 Long term (current) use of aspirin; Z79.899 Other long term (current) drug therapy | CPT/HCPCS: 49083; 99283-25 ==

== ENCOUNTER 2025-02-08 13:07 | Emergency (ER) | payer MEDICARE, OTHER ==
[2025-02-08] MEDS ORDERED: Sodium Chloride 0.9% 10 ML Syringe FLUSH PRN (13:52)
[2025-02-08 14:16] LABS: BASOPHILS ABSOLUTE AUTO 0.1 K/mm3 (0.0-0.2); BASOPHILS PERCENT AUTO 1.1 % (0.0-1.0); EOSINOPHILS ABSOLUTE AUTO 0.4 K/mm3 (0.0-0.4); EOSINOPHILS PERCENT AUTO 4.4 % (0.0-6.0); HEMATOCRIT 37.1 % (42.0-52.0); HEMOGLOBIN 12.8 gm/dl (14.0-18.0); IMMATURE GRAN ABSOLUTE AUTO 0.02 K/mm3 (0.00-0.05); IMMATURE GRAN PERCENT AUTO 0.2 % (0.0-0.4); LYMPHOCYTES ABSOLUTE AUTO 0.7 K/mm3 (1.0-4.8); LYMPHOCYTES PERCENT AUTO 8.8 % (24.0-44.0); MEAN CORPUSCULAR HEMOGLOBIN 32.7 pg (28.0-32.0); MEAN CORPUSCULAR HGB CONC 34.5 g/dl (32.0-36.0); MEAN CORPUSCULAR VOLUME 94.6 fl (83.0-99.0); MEAN PLATELET VOLUME 9.1 fl (9.4-12.4); MONOCYTES ABSOLUTE AUTO 1.1 K/mm3 (0.0-0.8); NEUTROPHILS ABSOLUTE AUTO 5.9 K/mm3 (1.8-7.7); NEUTROPHILS PERCENT AUTO 72.5 % (41.0-71.0); PLATELET COUNT,PLT 150 K/mm3 (150-400); RED BLOOD CELL COUNT 3.92 M/mm3 (4.52-5.90)
[2025-02-08 14:37] LABS: ALBUMIN 2.4 g/dl (3.4-5.0); ANION GAP 11.5 (5-15); BILIRUBIN TOTAL 4.5 mg/dL (0.2-1.0); BUN/CREATININE RATIO 7.4 (14-18); CALCIUM 8.6 mg/dL (8.5-10.1); EST CRCL DRUG DOSING (CG) 42.54 mL/min; POTASSIUM,K 4.5 mEq/L (3.5-5.1)
[2025-02-08 14:49] LABS: CREATININE 1.9 mg/dL (0.7-1.3); PROTEIN TOTAL,TP 4.9 g/dl (6.4-8.2)
[2025-02-08] MEDS: Lidocaine 1% 10 ML MDV INJECT ONE (16:58)
== END 2025-02-08 16:45 | disposition home or self-care (01) ==
LOC: JD.ED 13:07
DX: K74.60 Unspecified cirrhosis of liver (principal); R18.8 Other ascites; I10 Essential (primary) hypertension; I25.2 Old myocardial infarction; J44.9 Chronic obstructive pulmonary disease, unspecified; K21.9 Gastro-esophageal reflux disease without esophagitis; Z86.73 Personal history of transient ischemic attack (TIA), and cerebral infarction without residual deficits; Z90.49 Acquired absence of other specified parts of digestive tract; Z88.0 Allergy status to penicillin; Z79.51 Long term (current) use of inhaled steroids; Z79.82 Long term (current) use of aspirin; Z79.899 Other long term (current) drug therapy
CPT/HCPCS: 36415; 49083; 80053; 83690; 85025; 99284; 99284-25

== ENCOUNTER 2025-02-20 11:15 | Emergency (ER) | payer MEDICARE, OTHER ==
[2025-02-20 14:37] LABS: BASOPHILS ABSOLUTE AUTO 0.1 K/mm3 (0.0-0.2); BASOPHILS PERCENT AUTO 1.2 % (0.0-1.0); EOSINOPHILS ABSOLUTE AUTO 0.4 K/mm3 (0.0-0.4); EOSINOPHILS PERCENT AUTO 5.7 % (0.0-6.0); HEMATOCRIT 35.3 % (42.0-52.0); HEMOGLOBIN 12.4 gm/dl (14.0-18.0); IMMATURE GRAN ABSOLUTE AUTO 0.01 K/mm3 (0.00-0.05); IMMATURE GRAN PERCENT AUTO 0.1 % (0.0-0.4); LYMPHOCYTES ABSOLUTE AUTO 0.9 K/mm3 (1.0-4.8); LYMPHOCYTES PERCENT AUTO 11.7 % (24.0-44.0); MEAN CORPUSCULAR HEMOGLOBIN 33.4 pg (28.0-32.0); MEAN CORPUSCULAR HGB CONC 35.1 g/dl (32.0-36.0); MEAN CORPUSCULAR VOLUME 95.1 fl (83.0-99.0); MEAN PLATELET VOLUME 9.6 fl (9.4-12.4); NEUTROPHILS PERCENT AUTO 67.3 % (41.0-71.0); PLATELET COUNT,PLT 135 K/mm3 (150-400); RED BLOOD CELL COUNT 3.71 M/mm3 (4.52-5.90); WHITE BLOOD CELL COUNT,WBC 7.37 K/mm3 (3.9-11.3)
[2025-02-20 14:58] LABS: A/G RATIO 0.9 (1-2); ALBUMIN 2.3 g/dl (3.4-5.0); ANION GAP 9.9 (5-15); BILIRUBIN TOTAL 3.3 mg/dL (0.2-1.0); BUN/CREATININE RATIO 8.2 (14-18); CALCIUM 8.6 mg/dL (8.5-10.1); CREATININE 1.7 mg/dL (0.7-1.3); EST CRCL DRUG DOSING (CG) 47.55 mL/min; POTASSIUM,K 4.9 mEq/L (3.5-5.1); PROTEIN TOTAL,TP 4.8 g/dl (6.4-8.2)
== END 2025-02-20 16:30 | disposition home or self-care (01) ==
LOC: JD.ED 11:15
DX: R18.8 Other ascites (principal); I10 Essential (primary) hypertension; I25.2 Old myocardial infarction; J44.9 Chronic obstructive pulmonary disease, unspecified; K21.9 Gastro-esophageal reflux disease without esophagitis; Z86.73 Personal history of transient ischemic attack (TIA), and cerebral infarction without residual deficits; Z90.49 Acquired absence of other specified parts of digestive tract; Z88.0 Allergy status to penicillin; Z79.51 Long term (current) use of inhaled steroids; Z79.82 Long term (current) use of aspirin; Z79.899 Other long term (current) drug therapy
CPT/HCPCS: 36415; 49083; 80053; 85025; 99284; 99284-25

== ENCOUNTER 2025-03-29 19:01 | Emergency (ER) | payer MEDICARE, OTHER ==
[2025-03-29 19:59] LABS: BASOPHILS ABSOLUTE AUTO 0.1 K/mm3 (0.0-0.2); BASOPHILS PERCENT AUTO 1.3 % (0.0-1.0); EOSINOPHILS ABSOLUTE AUTO 0.4 K/mm3 (0.0-0.4); EOSINOPHILS PERCENT AUTO 4.8 % (0.0-6.0); HEMATOCRIT 33.5 % (42.0-52.0); HEMOGLOBIN 11.5 gm/dl (14.0-18.0); IMMATURE GRAN ABSOLUTE AUTO 0.02 K/mm3 (0.00-0.05); IMMATURE GRAN PERCENT AUTO 0.3 % (0.0-0.4); LYMPHOCYTES ABSOLUTE AUTO 0.8 K/mm3 (1.0-4.8); LYMPHOCYTES PERCENT AUTO 10.1 % (24.0-44.0); MEAN CORPUSCULAR HEMOGLOBIN 32.4 pg (28.0-32.0); MEAN CORPUSCULAR HGB CONC 34.3 g/dl (32.0-36.0); MEAN CORPUSCULAR VOLUME 94.4 fl (83.0-99.0); MEAN PLATELET VOLUME 9.1 fl (9.4-12.4); MONOCYTES ABSOLUTE AUTO 1.1 K/mm3 (0.0-0.8); MONOCYTES PERCENT AUTO 13.7 % (0.0-8.0); NEUTROPHILS ABSOLUTE AUTO 5.4 K/mm3 (1.8-7.7); NEUTROPHILS PERCENT AUTO 69.8 % (41.0-71.0); PLATELET COUNT,PLT 114 K/mm3 (150-400); RED BLOOD CELL COUNT 3.55 M/mm3 (4.52-5.90); WHITE BLOOD CELL COUNT,WBC 7.74 K/mm3 (3.9-11.3)
[2025-03-29] MEDS: Witch Hazel Medicated Pads 40/Jar TOP ONE (20:12)
[2025-03-29 20:17] LABS: INR 1.52; PROTHROMBIN TIME 15.7 SECONDS (9.7-12.0)
[2025-03-29 20:20] LABS: ALBUMIN 2.2 g/dl (3.4-5.0); ANION GAP 9.2 (5-15); BILIRUBIN TOTAL 3.3 mg/dL (0.2-1.0); CREATININE 2.1 mg/dL (0.7-1.3); EST CRCL DRUG DOSING (CG) 37.98 mL/min; POTASSIUM,K 5.2 mEq/L (3.5-5.1); PROTEIN TOTAL,TP 4.4 g/dl (6.4-8.2)
== END 2025-03-29 21:29 | disposition home or self-care (01) ==
LOC: JD.ED 19:01
DX: K64.8 Other hemorrhoids (principal); I10 Essential (primary) hypertension; I25.2 Old myocardial infarction; J44.9 Chronic obstructive pulmonary disease, unspecified; Z86.73 Personal history of transient ischemic attack (TIA), and cerebral infarction without residual deficits; Z90.49 Acquired absence of other specified parts of digestive tract; Z79.899 Other long term (current) drug therapy; Z79.51 Long term (current) use of inhaled steroids; Z79.82 Long term (current) use of aspirin
CPT/HCPCS: 36415; 80053; 85025; 85610; 99283

== ENCOUNTER 2025-06-08 04:04 | Inpatient (IN) | payer MEDICARE, OTHER ==
[2025-06-08 04:53] LABS: BASOPHILS ABSOLUTE AUTO 0.1 K/mm3 (0.0-0.2); BASOPHILS PERCENT AUTO 1.0 % (0.0-1.0); EOSINOPHILS ABSOLUTE AUTO 0.3 K/mm3 (0.0-0.4); EOSINOPHILS PERCENT AUTO 4.8 % (0.0-6.0); IMMATURE GRAN ABSOLUTE AUTO 0.01 K/mm3 (0.00-0.05); IMMATURE GRAN PERCENT AUTO 0.1 % (0.0-0.4); LYMPHOCYTES ABSOLUTE AUTO 0.7 K/mm3 (1.0-4.8); LYMPHOCYTES PERCENT AUTO 10.2 % (24.0-44.0); MEAN PLATELET VOLUME 9.5 fl (9.4-12.4); MONOCYTES ABSOLUTE AUTO 0.9 K/mm3 (0.0-0.8); MONOCYTES PERCENT AUTO 13.2 % (0.0-8.0); NEUTROPHILS ABSOLUTE AUTO 4.8 K/mm3 (1.8-7.7); NEUTROPHILS PERCENT AUTO 70.7 % (41.0-71.0); NRBC ABSOLUTE 0.00 (0.00-0.02); NRBC PERCENT 0.0 % (0.0-0.2); PLATELET COUNT,PLT 117 K/mm3 (150-400); RED BLOOD CELL COUNT 3.02 M/mm3 (4.52-5.90); WHITE BLOOD CELL COUNT,WBC 6.84 K/mm3 (3.9-11.3)
[2025-06-08 05:10] LABS: INR 1.69
[2025-06-08 05:14] LABS: A/G RATIO 1.2 (1-2); ALANINE AMINOTRANSFERASE,ALT 45 U/L (16-63); ASPARTATE AMNIOTRANSFERASE,AST 55 U/L (15-37); BILIRUBIN TOTAL 3.3 mg/dL (0.2-1.0); BLOOD UREA NITROGEN,BUN 25 mg/dL (7-18); CARBON DIOXIDE,CO2 20 mEq/L (21-32); CHLORIDE,CL 101 mEq/L (98-107); CREATINE KINASE,CK 208 U/L (39-308); CREATININE 2.1 mg/dL (0.7-1.3); ESTIMATED GFR 34 mL/min (>60); GLUCOSE RANDOM 87 mg/dL (70-99); PROTEIN TOTAL,TP 4.2 g/dl (6.4-8.2); SODIUM,NA 126 mEq/L (136-145)
[2025-06-08 05:15] LABS: POTASSIUM,K 6.1 mEq/L (3.5-5.1)
[2025-06-08 05:53] LABS: POTASSIUM,K 6.0 mEq/L (3.5-5.1); TROPONIN I HIGH SENSITIVITY 19.0 pg/mL (<=76)
[2025-06-08] MEDS ORDERED: Calcium Chloride 10% 1 GM/10 ML Syringe IVPUSH ONE (06:31)
[2025-06-08] MEDS: Calcium Gluconate 10% 1 GM/10 ML SDV IVPUSH ONE (07:26)
[2025-06-08] MEDS: Furosemide 40 MG/4 ML VIAL IVPUSH ONE (07:33)
[2025-06-08] MEDS: Insulin Regular, Human 100 Units/ML 10 ML Vial IV ONE (07:35)
[2025-06-08] MEDS: 50% Dextrose in Water 50 ML Syringe IVPUSH PRN (07:43)
[2025-06-08] MEDS ORDERED: Ondansetron 4 MG Tab.DIS PO PRN (10:56)
[2025-06-08] MEDS ORDERED: Sennosides/Docusate Sodium 50-8.6 MG Tab PO PRN (10:56)
[2025-06-08] MEDS ORDERED: Nitroglycerin 0.4 MG Tab.SL SL PRN (11:01)
[2025-06-08 11:09] LABS: OSMOLALITY,SERUM 269.0 mosm/kg (280-300)
[2025-06-08] MEDS: Lactulose Soln 10 GM/15 ML 30 ML UD Cup PO SCH (11:14)
[2025-06-08] MEDS: Heparin Sodium 5,000 Units/ML Vial SUBCUT SCH ×2 (11:14→21:26)
[2025-06-08 11:50] LABS: A/G RATIO 1.2 (1-2); ALANINE AMINOTRANSFERASE,ALT 42.0 U/L (16-63); ASPARTATE AMNIOTRANSFERASE,AST 55.0 U/L (15-37); BILIRUBIN TOTAL 3.1 mg/dL (0.2-1.0); BLOOD UREA NITROGEN,BUN 25.0 mg/dL (7-18); CREATININE 2.0 mg/dL (0.7-1.3); EST CRCL DRUG DOSING (CG) 39.88 mL/min; ESTIMATED GFR 36.0 mL/min (>60); PHOSPHORUS 2.8 mg/dL (2.6-4.7); PROTEIN TOTAL,TP 4.1 g/dl (6.4-8.2)
[2025-06-08 11:58] LABS: GLUCOSE RANDOM 53.0 mg/dL (70-99)
[2025-06-08 12:02] LABS: TSH 3.537 uIU/mL (0.358-3.74)
[2025-06-08 12:03] LABS: IRON,FE 100 ug/dL (65-175)
[2025-06-08 12:04] LABS: PERCENT FE SATURATION 99 % (20-55)
[2025-06-08 12:06] LABS: CARBON DIOXIDE,CO2 16.0 mEq/L (21-32); CHLORIDE,CL 102.0 mEq/L (98-107); POTASSIUM,K 4.8 mEq/L (3.5-5.1); SODIUM,NA 128.0 mEq/L (136-145)
[2025-06-08 18:35] LABS: APPEARANCE,URINE CLEAR (Clear); GLUCOSE,URINE NEGATIVE (Negative); OCCULT BLOOD,URINE 2+ (Negative)
[2025-06-08 18:48] LABS: CREATININE,URINE RAND 82.1 mg/dL (30.0-125.0)
[2025-06-08 19:03] LABS: EPITHELIAL CELLS,URINE NOT SEEN /hpf (0-5)
[2025-06-08 19:35] LABS: OSMOLALITY,URINE 344.0 mosm/kg (400-1100)
[2025-06-09 05:50] LABS: BASOPHILS ABSOLUTE AUTO 0.1 K/mm3 (0.0-0.2); BASOPHILS PERCENT AUTO 1.2 % (0.0-1.0); EOSINOPHILS ABSOLUTE AUTO 0.5 K/mm3 (0.0-0.4); EOSINOPHILS PERCENT AUTO 8.2 % (0.0-6.0); IMMATURE GRAN ABSOLUTE AUTO 0.01 K/mm3 (0.00-0.05); IMMATURE GRAN PERCENT AUTO 0.2 % (0.0-0.4); LYMPHOCYTES ABSOLUTE AUTO 1.1 K/mm3 (1.0-4.8); LYMPHOCYTES PERCENT AUTO 17.7 % (24.0-44.0); MEAN PLATELET VOLUME 9.2 fl (9.4-12.4); MONOCYTES ABSOLUTE AUTO 0.7 K/mm3 (0.0-0.8); MONOCYTES PERCENT AUTO 12.0 % (0.0-8.0); NEUTROPHILS ABSOLUTE AUTO 3.6 K/mm3 (1.8-7.7); NEUTROPHILS PERCENT AUTO 60.7 % (41.0-71.0); NRBC ABSOLUTE 0.00 (0.00-0.02); NRBC PERCENT 0.0 % (0.0-0.2); PLATELET COUNT,PLT 113 K/mm3 (150-400); RED BLOOD CELL COUNT 2.80 M/mm3 (4.52-5.90); WHITE BLOOD CELL COUNT,WBC 5.98 K/mm3 (3.9-11.3)
[2025-06-09 06:02] LABS: INR 1.73
[2025-06-09 06:10] LABS: A/G RATIO 1.2 (1-2); ALANINE AMINOTRANSFERASE,ALT 44.0 U/L (16-63); ASPARTATE AMNIOTRANSFERASE,AST 54.0 U/L (15-37); BILIRUBIN TOTAL 3.4 mg/dL (0.2-1.0); BLOOD UREA NITROGEN,BUN 26.0 mg/dL (7-18); CARBON DIOXIDE,CO2 19.0 mEq/L (21-32); CHLORIDE,CL 101.0 mEq/L (98-107); CREATININE 2.0 mg/dL (0.7-1.3); EST CRCL DRUG DOSING (CG) 39.88 mL/min; ESTIMATED GFR 36.0 mL/min (>60); GLUCOSE RANDOM 80.0 mg/dL (70-99); PHOSPHORUS 3.5 mg/dL (2.6-4.7); POTASSIUM,K 4.9 mEq/L (3.5-5.1); PROTEIN TOTAL,TP 3.9 g/dl (6.4-8.2); SODIUM,NA 128.0 mEq/L (136-145)
[2025-06-09 06:56] LABS: FOLIC ACID 3.2 ng/mL (8.6-58.9)
[2025-06-09] MEDS: Cholecalciferol (Vitamin D3) 5,000 UNIT Cap PO SCH (09:22)
[2025-06-09] MEDS: Tiotropium Bromide 4 GM Inhalation Spray (2.5mcg/1 dose; 10 doses) INH SCH (09:50)
[2025-06-09] MEDS: Albumin 25% 12.5 GM/50 ML BAG IV SCH (14:50)
[2025-06-09 20:37] LABS: BLOOD UREA NITROGEN,BUN 25.0 mg/dL (7-18); CARBON DIOXIDE,CO2 19.0 mEq/L (21-32); CHLORIDE,CL 100.0 mEq/L (98-107); CREATININE 2.1 mg/dL (0.7-1.3); EST CRCL DRUG DOSING (CG) 37.98 mL/min; ESTIMATED GFR 34.0 mL/min (>60); GLUCOSE RANDOM 107.0 mg/dL (70-99); POTASSIUM,K 4.2 mEq/L (3.5-5.1); SODIUM,NA 129.0 mEq/L (136-145)
[2025-06-10 04:57] LABS: MEAN PLATELET VOLUME 10.1 fl (9.4-12.4); NRBC ABSOLUTE 0.00 (0.00-0.02); NRBC PERCENT 0.0 % (0.0-0.2); PLATELET COUNT,PLT 110 K/mm3 (150-400); RED BLOOD CELL COUNT 2.63 M/mm3 (4.52-5.90); WHITE BLOOD CELL COUNT,WBC 5.53 K/mm3 (3.9-11.3)
[2025-06-10 06:16] LABS: A/G RATIO 2.1 (1-2); ALANINE AMINOTRANSFERASE,ALT 33.0 U/L (16-63); ASPARTATE AMNIOTRANSFERASE,AST 42.0 U/L (15-37); BILIRUBIN TOTAL 3.7 mg/dL (0.2-1.0); BLOOD UREA NITROGEN,BUN 26.0 mg/dL (7-18); CARBON DIOXIDE,CO2 19.0 mEq/L (21-32); CHLORIDE,CL 101.0 mEq/L (98-107); CREATININE 2.0 mg/dL (0.7-1.3); EST CRCL DRUG DOSING (CG) 39.88 mL/min; ESTIMATED GFR 36.0 mL/min (>60); GLUCOSE RANDOM 86.0 mg/dL (70-99); POTASSIUM,K 4.0 mEq/L (3.5-5.1); PROTEIN TOTAL,TP 4.4 g/dl (6.4-8.2); SODIUM,NA 129.0 mEq/L (136-145)
[2025-06-10] MEDS: Ondansetron 4 MG/2 ML SDV IVPUSH PRN (09:35)
[2025-06-10] MEDS: Albumin 25% 12.5 GM/50 ML BAG IV SCH (14:57)
[2025-06-11 05:56] LABS: BLOOD UREA NITROGEN,BUN 25.0 mg/dL (7-18); CARBON DIOXIDE,CO2 16.0 mEq/L (21-32); CHLORIDE,CL 101.0 mEq/L (98-107); CREATININE 1.7 mg/dL (0.7-1.3); EST CRCL DRUG DOSING (CG) 46.92 mL/min; ESTIMATED GFR 44.0 mL/min (>60); GLUCOSE RANDOM 79.0 mg/dL (70-99); POTASSIUM,K 3.5 mEq/L (3.5-5.1); SODIUM,NA 129.0 mEq/L (136-145)
[2025-06-11] MEDS: Acetaminophen/oxyCODONE 325-5 MG Tab PO PRN (08:22)
[2025-06-11] MEDS: Octreotide 100 MCG/ML SDV SUBCUT SCH (10:49)
[2025-06-11] MEDS: Albumin 25% 12.5 GM/50 ML BAG IV STA (20:53)
[2025-06-11] MEDS: Albumin 25% 12.5 GM/50 ML BAG IV ONE (21:16)
[2025-06-12 08:53] LABS: A/G RATIO 2.8 (1-2); ALANINE AMINOTRANSFERASE,ALT 26.0 U/L (16-63); ASPARTATE AMNIOTRANSFERASE,AST 29.0 U/L (15-37); BILIRUBIN TOTAL 4.4 mg/dL (0.2-1.0); BLOOD UREA NITROGEN,BUN 24.0 mg/dL (7-18); CARBON DIOXIDE,CO2 17.0 mEq/L (21-32); CHLORIDE,CL 101.0 mEq/L (98-107); EST CRCL DRUG DOSING (CG) 36.25 mL/min; ESTIMATED GFR 32.0 mL/min (>60); GLUCOSE RANDOM 117.0 mg/dL (70-99); POTASSIUM,K 3.7 mEq/L (3.5-5.1); SODIUM,NA 131.0 mEq/L (136-145)
[2025-06-12 08:54] LABS: CREATININE 2.2 mg/dL (0.7-1.3); PROTEIN TOTAL,TP 4.5 g/dl (6.4-8.2)
[2025-06-13 08:02] LABS: BASOPHILS ABSOLUTE AUTO 0.1 K/mm3 (0.0-0.2); BASOPHILS PERCENT AUTO 1.5 % (0.0-1.0); EOSINOPHILS ABSOLUTE AUTO 0.6 K/mm3 (0.0-0.4); EOSINOPHILS PERCENT AUTO 9.9 % (0.0-6.0); IMMATURE GRAN ABSOLUTE AUTO 0.01 K/mm3 (0.00-0.05); IMMATURE GRAN PERCENT AUTO 0.2 % (0.0-0.4); LYMPHOCYTES ABSOLUTE AUTO 0.9 K/mm3 (1.0-4.8); LYMPHOCYTES PERCENT AUTO 14.9 % (24.0-44.0); MEAN PLATELET VOLUME 9.5 fl (9.4-12.4); MONOCYTES ABSOLUTE AUTO 0.8 K/mm3 (0.0-0.8); MONOCYTES PERCENT AUTO 13.6 % (0.0-8.0); NEUTROPHILS ABSOLUTE AUTO 3.7 K/mm3 (1.8-7.7); NEUTROPHILS PERCENT AUTO 59.9 % (41.0-71.0); NRBC ABSOLUTE 0.00 (0.00-0.02); NRBC PERCENT 0.0 % (0.0-0.2); PLATELET COUNT,PLT 120 K/mm3 (150-400); RED BLOOD CELL COUNT 2.92 M/mm3 (4.52-5.90); WHITE BLOOD CELL COUNT,WBC 6.18 K/mm3 (3.9-11.3)
[2025-06-13 08:37] LABS: A/G RATIO 2.6 (1-2); ALANINE AMINOTRANSFERASE,ALT 27.0 U/L (16-63); ASPARTATE AMNIOTRANSFERASE,AST 32.0 U/L (15-37); BILIRUBIN TOTAL 3.8 mg/dL (0.2-1.0); BLOOD UREA NITROGEN,BUN 24.0 mg/dL (7-18); CARBON DIOXIDE,CO2 18.0 mEq/L (21-32); CHLORIDE,CL 102.0 mEq/L (98-107); CREATININE 2.3 mg/dL (0.7-1.3); EST CRCL DRUG DOSING (CG) 34.68 mL/min; ESTIMATED GFR 31.0 mL/min (>60); GLUCOSE RANDOM 108.0 mg/dL (70-99); POTASSIUM,K 3.6 mEq/L (3.5-5.1); PROTEIN TOTAL,TP 4.3 g/dl (6.4-8.2); SODIUM,NA 131.0 mEq/L (136-145)
[2025-06-14] MEDS: LORazepam 2 MG/ML SDV IVPUSH PRN (09:50)
[2025-06-16] MEDS: Scopalamine 1mg/3day Transdermal Patch TOP SCH (09:53)
== END 2025-06-17 04:43 | disposition expired | DRG 682 ==
LOC: JD.ED 04:04 → JD.MS 06:34 → UNDOADMIN 06:34 → JD.ICU 06:35 → JD.MS 06:35 → JD.ICU 06-09 07:36 → JD.MS 06-09 07:36 → JD.ICU 06-09 14:07 → JD.MS 06-14 12:45
PROVIDERS: ADMIT Student in an Organized Health Care Education/Training Program; ATTEND Student in an Organized Health Care Education/Training Program
PROC: 3E033XZ Introduction of Vasopressor into Peripheral Vein, Percutaneous Approach (ICD-10-PCS; principal; 2025-06-08)
PROC: 30233J1 Transfusion of Nonautologous Serum Albumin into Peripheral Vein, Percutaneous Approach (ICD-10-PCS; principal; 2025-06-08)
DX: N17.8 Other acute kidney failure (principal); K76.7 Hepatorenal syndrome; E83.42 Hypomagnesemia; E87.1 Hypo-osmolality and hyponatremia; E87.5 Hyperkalemia; I12.9 Hypertensive chronic kidney disease with stage 1 through stage 4 chronic kidney disease, or unspecified chronic kidney disease; N18.9 Chronic kidney disease, unspecified; Z66 Do not resuscitate; Z51.5 Encounter for palliative care; K76.82 Hepatic encephalopathy; K70.31 Alcoholic cirrhosis of liver with ascites; H91.90 Unspecified hearing loss, unspecified ear; H54.7 Unspecified visual loss; J44.9 Chronic obstructive pulmonary disease, unspecified; K21.9 Gastro-esophageal reflux disease without esophagitis; M54.9 Dorsalgia, unspecified; G89.29 Other chronic pain; F32.A Depression, unspecified; I25.10 Atherosclerotic heart disease of native coronary artery without angina pectoris; E53.8 Deficiency of other specified B group vitamins; Z95.5 Presence of coronary angioplasty implant and graft; Z79.82 Long term (current) use of aspirin; Z98.890 Other specified postprocedural states; I25.2 Old myocardial infarction; Z88.0 Allergy status to penicillin; Z86.73 Personal history of transient ischemic attack (TIA), and cerebral infarction without residual deficits; Z87.891 Personal history of nicotine dependence; Z90.49 Acquired absence of other specified parts of digestive tract; Z79.899 Other long term (current) drug therapy; Z95.1 Presence of aortocoronary bypass graft
CPT/HCPCS: 36415 ×2; 76770; 80053 ×2; 82140; 82550; 82607; 82746; 82947; 83690; 83735 ×2; 84100; 84132; 84484; 85025 ×2; 85610 ×2; 93005; 96365; 99285; A9270 ×2; J1644; J3475; J7030; 51701; 51702; 51798; 80048; 81001; 82570; 82728; 83540; 83930; 83935; 84300; 84443; 84466; 84540; 85027; 93010; 94640; 94761; 97110-GP; 97116-GP; 97161-GP; 97530-GP; 99223; 99231; 99232; 99233; 99238; C1758; J0612; J1815-GY; J1938; J2060; J2270; J2354-JB-GY; J2405; P9047